=== PATIENT | male | born 1965 | race Caucasian/White ===

== ENCOUNTER 2016-04-09 18:44 | Inpatient (IN) | payer OTHER ==
[~2016-04-09] VITALS: Ht 182.9 cm; Wt 94.8 kg
[~2016-04-09 18:44] MED LIST: ATIVAN0.5 MG PO; COLCRYS0.6 MG PO; INDOMETHACIN25 MG PO; OXYCODONE-ACETAMINOP PO; PERCOCET 325 MG1 TAB PO
--- NOTE | 2016-04-09 18:52 | ED GENERAL ADULT ---
History of Present Illness General Chief Complaint: General Adult Stated Complaint: SOMETHING STUCK IN THROAT?, VOMITTING BLOOD Source: patient, old records Exam Limitations: no limitations Vital Signs & Intake/Output Vital Signs & Intake/Output Vital Signs Date Time Temp Pulse Resp B/P Pulse O2 O2 Flow FiO2 Ox Delivery Rate 04/10 0600 99.3 108 20 116/78 04/10 0400 126 32 119/67 04/10 0400 94 Nasal 4.0L Cannula 04/10 0314 100.4 04/10 0212 101.5 04/10 0200 128 24 90/55 04/10 0100 101.5 116 24 138/88 04/10 0000 130 20 147/83 04/09 2228 99.3 116 20 182/88 04/09 2228 100 Nasal 2.0L Cannula 04/09 2101 99.9 114 20 145/78 95 Nasal 2.0L Cannula 04/09 2005 110 15 120/80 100 Nasal 2.0L Cannula 04/09 195 Room Air Room Air 04/09 1934 94 15 142/78 04/09 1912 102 147/83 04/09 1906 92 149/81 04/09 1905 97.1 100 20 144/97 99 Room Air ED Intake and Output 04/10 0000 04/09 1200 Intake Total 1320 Output Total 150 Balance 1170 Intake, IV 1320 Intake, Oral 0 Output, 150 Emesis Patient 210 lb Weight Allergies Coded Allergies: No Known Allergies (10/28/15) Reconcile Medications Furosemide (Lasix) 40 MG TABLET 1 TAB PO BID LEG SWELLING (Reported) Ibuprofen 200 MG CAPSULE 4 CAP PO PRN PAIN (Reported) Oxycodone HCl 10 MG TABLET 1 TAB PO Q4H PRN CHRONIC PAIN (Reported) Potassium Chloride 10 MEQ TAB.ER.PRT 1 TAB PO DAILY SUPPLEMENT (Reported) Triage Nurses Notes Reviewed? yes HPI: Patient is a 51 year old male presents complaining of vomiting x 2-3 hours. Patient was eating a sandwich when he felt it get stuck. Vomiting water and saliva for 30 minutes -1 hour then for the past 1.5-2 hours vomiting blood. Still feels sensation of food bolus and feels anxious. Drinks alcohol daily, vodka and beer, at least 2 drinks today. Taking Ibuprofen daily for chronic pain. No history of seizures. Feels a knot in his throat and chest just prior to vomiting which improves after vomiting Denies abdominal pain, chest pain, lightheadedness, melena, hematochezia. (CARRIE SÁNCHEZ) Past History Travel History Traveled to [place] past 21 day No Medical History Any Pertinent Medical History? see below for history Neurological: NONE EENT: NONE Cardiovascular: NONE Respiratory: NONE Gastrointestinal: NONE Hepatic: NONE Renal: NONE Musculoskeletal: chronic back pain, R KNEE REPLACEMENT Psychiatric: substance abuse Endocrine: NONE Blood Disorders: NONE Cancer(s): NONE STERILE SUPERVISOR/Reproductive: NONE Other Medical Hx: CHRONIC PAIN Surgical History Surgical History: knee replacement Psychosocial History What is your primary language Honduran Family History Hx Contributory? No (CARRIE SÁNCHEZ) Review of Systems Review of Systems Constitutional: Denies: chills, fever, weakness. EENTM: Reports: throat pain. Respiratory: Denies: cough, short of breath. Cardiovascular: Denies: orthopena, palpitations, syncope. GI: Reports: see HPI. Denies: abdominal pain. Genitourinary: Reports: no symptoms. Musculoskeletal: Denies: back pain, neck pain. Skin: Reports: no symptoms. Neurological/Psychological: Denies: headache, numbness. Hematologic/Endocrine: Denies: bruising. Immunologic/Allergic: Denies: splenectomy. (CARRIE SÁNCHEZ) Physical Exam Physical Exam General Appearance: alert, awake, actively vomiting bright red blood Head: atraumatic, normal appearance Eyes: Bilateral: normal appearance, PERRL, EOMI. Ears, Nose, Throat: normal pharynx, normal ENT inspection Neck: normal inspection, supple, full range of motion Respiratory: normal breath sounds, chest non-tender, no respiratory distress, lungs clear Cardiovascular: regular rate/rhythm Peripheral Pulses: 2+ dorsalis pedis (R), 2+ dorsalis pedis (L) Gastrointestinal: normal bowel sounds, soft, non-tender Back: normal inspection, normal range of motion Extremities: normal inspection, normal capillary refill, normal range of motion, no edema Neurologic/Psych: no motor/sensory deficits, awake, alert, oriented x 3, mild anxious appearing. Skin: normal color, diaphoresis (mild) Lymphatic: no anterior cervical letitia Core Measures ACS in differential dx? No CVA/TIA Diagnosis: No Severe Sepsis Present: No Septic Shock Present: No (CARRIE SÁNCHEZ) Progress Differential Diagnoses I considered the following diagnoses in my evaluation of the patient: upper GI bleed(variceal bleed, PUD, Tsering-Garsia tear, esophageal rupture), aspiration pneumonia, food impaction, alcohol withdrawal Plan of Care: Orders Procedure Date/time Status Nothing by Mouth 04/10 B Active LEUKOCYTE POOR (PACKED CELLS) 04/10 0704 Active THYROID STIMULATING HORMONE 04/10 0500 Complete TROPONIN LEVEL 04/10 0500 Complete ICU LAB BUNDLE 04/10 0500 Complete HIV (Reflex to HIVCQ) 04/10 0500 Complete HEPATITIS PANEL 04/10 0500 Complete FREE T4 04/10 0500 Complete CBC WITHOUT DIFFERENTIAL 04/10 0500 Complete EKG 04/10 0500 Active LACTIC ACID 04/10 0440 Complete LACTIC ACID 04/10 0140 Complete CULTURE,URINE 04/10 0113 Active LOWER RESPIRATORY CULTURE 04/10 0113 Active BLOOD CULTURE 04/10 0113 Active TROPONIN LEVEL 04/10 0000 Complete ICU LAB BUNDLE 04/10 0000 Complete CBC WITHOUT DIFFERENTIAL 04/10 0000 Complete EKG 04/10 0000 Active US-LIMITED ABDOMEN 04/10 UNK Active ANTINUCLEAR ANTIBODY 04/10 UNK Active URINE DRUGS OF ABUSE 04/09 2326 Complete Pathway - chart 04/09 2152 Active House Staff 04/09 2152 Active Patient Data 04/09 2152 Active Code Status 04/09 2152 Active Weight 04/09 2124 Active VTE Mechanical Prophylaxis 04/09 2122 Active Vital Signs 04/09 2122 Active Turn and Reposition 04/09 2122 Active Teach/Educate 04/09 2122 Active Skin Integrity Protocol 04/09 2122 Active Skin/Pressure Ulcer Assess (Sk 04/09 2122 Active Precautions 04/09 2122 Active Pain Treatment and Response 04/09 2122 Active Nutritional Intake, Monitor 04/09 2122 Active Isolation 04/09 2122 Active Patient Care Conference 04/09 2122 Active Activity/Ambulation 04/09 2122 Active VRE ACTIVE SURVIELLANCE 04/09 2117 Active ACTIVE SURVEILLANCE NARES 04/09 2117 Active Add-on Test (ER Only) 04/09 2037 Active CIWA 04/09 2037 Active Patient Data 04/09 2033 Active Admit to inpatient 04/09 2021 Active CBC WITHOUT DIFFERENTIAL 04/09 2002 Complete Intake & Output 04/09 1904 Active TROPONIN LEVEL 04/09 1856 Complete MAGNESIUM 04/09 185 Complete LACTIC ACID 01/02 1856 Complete FOLIC ACID 04/09 1855 Complete VITAMIN B12 04/09 1855 Complete Add-on Test (ER Only) 04/09 1854 Active Telemetry/Assistant Manager Trainee 04/09 1849 Active PARTIAL THROMBOPLASTIN TIME 04/09 1849 Complete PROTHROMBIN TIME 04/09 1849 Complete ETHANOL 04/09 1849 Complete COMPREHENSIVE METABOLIC PANEL 04/09 1849 Complete CBC WITHOUT DIFFERENTIAL 04/09 1849 Complete EKG 04/09 1849 Active TYPE & SCREEN (NOT X-MATCH) 04/09 1849 Active Lab Add-on Test 04/09 UNK Active CIWA 04/09 UNK Complete Current Medications Sig/Liat Start time Last Medication Dose Stop Time Status Admin Oxycodone HCl 10 MG Q4 HRS NEEDED PRN 04/10 1000 CAN (Roxicodone) Hydromorphone HCl 0.6 MG Q4P PRN 04/10 0815 AC (Dilaudid) Potassium Chloride 10 MEQ ONCE ONE 04/10 0630 CAN 04/10 0700 Potassium Chloride 10 MEQ ONCE ONE 04/10 0630 CAN 04/10 0631 Potassium Chloride 10 MEQ ONCE ONE 04/10 0630 CAN 04/10 0631 Thiamine HCl 100 MG ONCE ONE 04/10 0130 CAN (Vitamin B-1) 04/10 0229 Sodium Chloride 100 ML (Normal Saline 0.9%) Laboratory Tests 04/10/16 0532: Lactic Acid 1.4 04/10/16 0532: TSH 0.406, Free T4 1.54 04/10/16 0532: Anion Gap 11, Estimated GFR > 60, Glucose 145 H, Calcium 7.9 L, Phosphorus 2.6 , Magnesium 1.6, Total Bilirubin 1.6 H, AST 104 H, ALT 54, Troponin I 0.01, Albumin 2.9 L, CBC w Diff MAN DIFF ORDERED, RBC 2.51 L, MCV 107.7 H, MCH 37.2 H, RDW 14.8 H, MPV 8.4, Gran % 85.3 H, Lymphocytes % 4.8 L, Monocytes % 9.9 H, Eosinophils % 0, Basophils % 0 L, Absolute Granulocytes 7.5 H, Segmented Neutrophils 78 H, Band Neutrophils 11 H, Absolute Lymphocytes 0.4 L, Lymphocytes 7 L, Monocytes 4, Absolute Monocytes 0.9 H, Absolute Eosinophils 0 , Absolute Basophils 0, Nucleated RBCs 1 H, Platelet Estimate DECREASED, Polychromasia 1+, Hypochromic-Microcytic 1+, PUBS MCHC 34.5, SHAE Titer Pending, Anti-Nuclear Antibody Pending, Hepatitis A IgM Ab NONREACTIVE, Hep Bs Antigen NONREACTIVE, Hep B Core IgM Ab Conf NONREACTIVE, Hepatitis C Antibody NONREACTIVE, HIV 1&2 Ab Western Blot NONREACTIVE 04/10/16 0140: Lactic Acid 2.2 H 04/10/16 0030: Anion Gap 14, Estimated GFR > 60, Glucose 143 H, Calcium 8.2 L, Phosphorus 2.5 , Magnesium 0.9 *L, Total Bilirubin 1.8 H, AST 132 H, ALT 65, Troponin I < 0.01, Albumin 3.4 L, CBC w Diff MAN DIFF ORDERED, RBC 2.88 L, MCV 107.1 H, MCH 37.1 H, RDW 14.6 H, MPV 8.9, Gran % 86.0 H, Lymphocytes % 3.6 L, Monocytes % 10.4 H, Eosinophils % 0, Basophils % 0 L, Absolute Granulocytes 7.2 H, Absolute Lymphocytes 0.3 L, Absolute Monocytes 0.9 H, Absolute Eosinophils 0, Absolute Basophils 0, Platelet Estimate ADEQUATE, Polychromasia 1 +, Hypochromic-Microcytic 1+, PUBS MCHC 34.6 04/09/16 2359: Urine Opiates Screen > 4000.00 H, Methadone Screen 44, Barbiturate Screen < 60, Ur Phencyclidine Scrn < 6.00, Amphetamines Screen < 100, U Benzodiazepines Scrn < 85, Urine Cocaine Screen < 50, Urine Cannabis Screen < 5.00 04/09/16 2014: CBC w Diff NO MAN DIFF REQ, RBC 2.95 L, MCV 108.5 H, MCH 37.3 H, RDW 15.0 H, MPV 8.3, Gran % 82.6 H, Lymphocytes % 7.4 L, Monocytes % 9.5 H, Eosinophils % 0.1, Basophils % 0.4, Absolute Granulocytes 4.7, Absolute Lymphocytes 0.4 L, Absolute Monocytes 0.5, Absolute Eosinophils 0, Absolute Basophils 0, PUBS MCHC 34.4 04/09/16 1856: Anion Gap 13, Estimated GFR > 60, BUN/Creatinine Ratio 12.9, Glucose 113 H, Lactic Acid 2.6 H, Calcium 8.9, Magnesium 1.1 L, Total Bilirubin 1.5 H, AST 163 H, ALT 66, Alkaline Phosphatase 143 H, Troponin I < 0.01, Total Protein 7.1, Albumin 3.7, Globulin 3.4, Albumin/Globulin Ratio 1.1, Vitamin B12 526, Folate 14.0, PT 13.3 H, INR 1.27 H, APTT 38 H, CBC w Diff NO MAN DIFF REQ, RBC 3.06 L, MCV 107.9 H, MCH 37.3 H, RDW 14.6 H, MPV 8.4, Gran % 74.2, Lymphocytes % 15.0 L, Monocytes % 10.4 H, Eosinophils % 0.1, Basophils % 0.3, Absolute Granulocytes 4.1, Absolute Lymphocytes 0.8 L, Absolute Monocytes 0.6, Absolute Eosinophils 0, Absolute Basophils 0, PUBS MCHC 34.5, Serum Alcohol 65.0 Microbiology 04/10 0400 GI: Surveillance Culture - RECD 04/10 0230 URINE ROUT: Urine Culture - RECD 04/10 134 BLOOD: Blood Culture - RECD 04/10 0130 BLOOD: Blood Culture - RECD 04/10 0113 LOWER RESP: Respiratory Culture - COLB 04/10 011 LOWER RESP: Gram Stain - COLB 04/09 2144 UPPER RESP: Surveillance Culture - RECD 0: 2 peripheral IV's established. Protonix ordered. GI paged. Discussed with and seen by Dr. Torres. 1909: Discussed with Dr. Smith: will come in to see patient. 1914: Discussed with Dr. Smith: give IV glucagon, recommends giving nitro if blood pressure remains stable. 1929: Patient continues to vomiting bright red blood. Remains normotensive with pulse 90's-100. Will hold nitro to see if blood pressure remains stable. 1939: Blood pressure remaining stable. SL nitroglycerin ordered. 2019: Patient's oxygen saturation dropping to high 80's low 90's. Discussed with Dr. Smith: is in hospital will be down to see patient shortly. 2029: Dr. Torres discussed case with Dr. Avendaño for admission to ICU. Dr. Smith at bedside to evaluate patient. 2049: Evaluated by Dr. Smith: give antibiotics for possible aspiration pneumonia and Ceftriaxone in case patient requires any banding procedures. Antibiotics ordered by Dr. Torres. (CARRIE SÁNCHEZ) Diagnostic Imaging: Viewed by Me: Radiology Read. Discussed w/RAD: Radiology Read. CXR Impression: PATIENT: JENNI MALAGON JR PRESENT AGE : 51 PATIENT ACCOUNT NO: [id number] : 63 LOCATION: [facility] ORDERING PHYSICIAN: CARRIE ROSE SERVICE DATE: 04/09/16 EXAM TYPE: RAD - XRY-PORTABLE CHEST XRAY EXAMINATION: XR PORTABLE CHEST CLINICAL INFORMATION: 51- year-old male patient vomiting and has decreasing oxygen saturations. COMPARISON : Chest x-ray done 10/28/2015. TECHNIQUE: AP portable semierect view of the chest was obtained. FINDINGS: The heart is normal in size and the thoracic aorta uncoiled. Lungs are clear. There is no evidence of aspiration pneumonia. The central pulmonary vasculature is engorged. There is no evidence of pulmonary edema. IMPRESSION: No evidence of aspiration pneumonia. DICTATED BY: EZIO MORALEZ MD DATE/TIME DICTATED:04/09/162014 COAL YARD SUPERVISOR:CHARLES DATE/ TIME TRANSCRIBED:04/09/162014 CONFIDENTIAL, DO NOT COPY WITHOUT APPROPRIATE AUTHORIZATION. <Electronically signed in Other Vendor System> SIGNED BY: EZIO MORALEZ MD 04/09/162019 Initial ED EKG: sinus rhythm 100 bpm left axis deviation, nonspecific ST/T-wave abnormalities Prior EKG: changed (nonspecific t wave changes) Rhythm Strip: normal sinus rhythm (CARRIE SÁNCHEZ) Differential Diagnoses I considered the following diagnoses in my evaluation of the patient: (JEN TORRES DO) Departure Departure Time of Disposition: 2032 Disposition: STILL A PATIENT Condition: Guarded Clinical Impression Primary Impression: Upper GI bleed Secondary Impressions: Alcohol withdrawal Qualifiers: Complication of substance-induced condition: with unspecified complication Qualified Code: F10.239 - Alcohol dependence with withdrawal, unspecified Referrals: PATIENT HAS NO PRIMARY CARE DR Referred to [facility] as new patient No Departure Forms: Customer Survey General Discharge Information (CARRIE SÁNCHEZ) Admission Note Spoke With: TESSIE AVENDAÑO MD Documentation of Exam: Documentation of any treatments & extenuating circumstances including Concerns Regarding Discharge (functional status, medication knowledge or non-compliance, living conditions, etc.) that warrant an admission rather than observation: [The patient needs admission to the ICU for IV fluids IV proton pump inhibitor therapy, serial hemoglobin and hematocrit, GI consultation] PA/SUPERVISOR PAINTING Co-Sign Statement Statement: ED Attending supervision documentation- [X] I saw and evaluated the patient. I have also reviewed all the pertinent lab results and diagnostic results. I agree with the findings and the plan of care as documented in the PA's/SUPERVISOR PAINTING's documentation. [] I have reviewed the ED Record and agree with the PA's/SUPERVISOR PAINTING's documentation. [] Additions or exceptions (if any) to the PAs/SUPERVISOR PAINTING's note and plan are summarized below: [] 04/09/16 7:26 PM I've seen and personally examined the patient and I agree with the PAs evaluation. He is a 51-year-old man who has history of prior food impaction and now presents with upper GI bleeding. He has been taking ibuprofen. He is hemodynamically stable. His EKG shows sinus tachycardia. Labs have been sent. IV fluids were given. GI has been contacted they are coming in to see the patient. He will be admitted to the intensive care, he is pending lab results. (BRIAN WISE,JEN Call) Critical Care Note Critical Care Note Critical Care Time: 30-74 min (CARRIE SÁNCHEZ)
[2016-04-09 19:07] LABS: ABSOLUTE BASOPHIL COUNT 0 /CUMM (0.0-0.2); ABSOLUTE EOSINOPHIL COUNT 0 /CUMM (0.0-0.7); ABSOLUTE GRANULOCYTE CT 4.1 /CUMM (1.4-6.5); ABSOLUTE LYMPH COUNT 0.8 /CUMM (1.2-3.4); ABSOLUTE MONOCYTE COUNT 0.6 /CUMM (0.10-0.60); BASOPHIL % 0.3 % (0.0-2.0); EOSINOPHIL % 0.1 % (0-5); GRANULOCYTE % 74.2 % (42.2-75.2); MEAN CORPUSCULAR HGB 37.3 PG (27.0-31.0); MEAN CORPUSCULAR HGB CONC 34.5 G/DL (33.0-37.0); MEAN CORPUSCULAR VOLUME 107.9 FL (80.0-94.0); MEAN PLATELET VOLUME 8.4 FL (7.4-10.4); PLATELET COUNT 152 /CUMM (130-400); RBC DISTRIBUTION WIDTH 14.6 % (11.5-14.5); RED BLOOD CELL CT 3.06 /CUMM (4.70-6.10); WHITE BLOOD CELL COUNT 5.6 /CUMM (4.8-10.8)
--- NOTE | 2016-04-09 19:16 | NUR ---
51 YEAR OLD MALE TO TRIAGE, PT NOTED WITH GARBAGE BAG FULL OF RAGS WITH BRIGHT RED BLOOD ON THEM, PT DIRECTLY TO ROOM, STATES THAT HE DRINKS EVERYDAY AND THAT AROUND 1600 HE WAS EATING A SANDWICH AND IT BECAME LODGED IN HIS THROAT AND BEGAN VOMITTING CLEAR FLUIDS THAT QUICKLY TURNED INTO BRIGHT RED BLOOD, PT STATES THAT HE HAS BEEN VOMITTING BLOOD SINCE, PT PROVIDED WITH BASIN AND NOTED TO BE ACTIVELY VOMITTING BRIGHT RED BLOOD , PA AT BEDSIDE, 18 GAUGE PLACED RAC AND 1L LNS BOLUS INFUSING, # 20 PLACED IN L HAND AND PT MEDICATED WITH 80 MG IV PROTONIX PER ORDER AND 4MG ZOFRAN FOR THE NAUSEA. PT CONTINUED TO VOMIT BRIGHT RED BLOOD. BP 147/83 AND HR 104
--- NOTE | 2016-04-09 19:16 | NUR ---
PT MEDICATED WITH ATIVAN 1 MG IV PER ORDER FOR ANXIETY. PROTONIX DRIP BEING STARTED AT THIS TIME.NSR ON MONITOR WITH HR 86
[2016-04-09 19:21] LABS: PT 13.3 SEC (9.4-12.5); PTT 38 SEC (25-37)
--- NOTE | 2016-04-09 19:35 | NUR ---
PT MEDCIATED WITH GLUCAGON PER EMAR. PT CONTINUES TO VOMIT BRIGHT RED BLOOD. PASSING SOME LARGE CLOTS.
--- NOTE | 2016-04-09 19:49 | NUR ---
PT STATES HE HAS A FEELING OF LABORED BREATHING, RR 20 AND REGULAR, MILTON JOHN NOTIFIED
--- NOTE | 2016-04-09 19:50 | NUR ---
PT MEDICATED WITH NITRO PER EMAR. BP STABLE PRIOR TO ADMINISTRATION: 156/86 PT ALSO REPORTS "LABORED BREATHING." O2 SAT WNL.
--- NOTE | 2016-04-09 19:56 | NUR ---
PT PLACED ON 2L NC OXYGEN FOR O2 SAT 89% ON RA WITHSTEADY WAVEFORM.
--- NOTE | 2016-04-09 20:08 | Cons- Gastroenterology ---
See Addendum General Information and HPI Consulting Request Date of Consult: 04/09/16 Requested By: CARRIE SÁNCHEZ Reason for Consult: Called 1 hour ago by MILTON Choi, pn behalf of Dr. Herring, to assess upper GI bleeding in the setting of a food impaction, in a patient with a history of alcohol abuse. Source of Information: patient, old records Exam Limitations: patient anxious, agitated & was upset at answering questions. 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 Lee, with history of multiple falls (right TKR, post 4 previous right knee surgeries, multiple bilateral collarbone fractures, chronic back pain, DJD, herniated disc, shoulder pain), followed by Dr. Herring for primary care, claiming to average "8 drinks of EtOH weekly," with remote history of lower esophageal ring and food impaction. This required 12/14/2002: EGD x 2 same day (Dr. Shaq Umana/Dr. Shameka Gillette)- food impaction removed, lower esophageal ring, hiatal hernia. No varices or portal gastropathy noted at that time. The patient was put on a short course of Carafate and Nexium then. He was not compliant with suggested follow-up for semi-elective barium swallow & esophageal dilatation. He has not seen a blow off worker since. He has had rare intermittent dysphagia to solids since, which passed spontaneously. He normally has no difficulty swallowing liquids or pills. He has not had a baseline colonoscopy. There is no family history of GI disease, GI malignancy, or inherited liver disease. He denies any history of viral hepatitis, tattoos, or known history of HIV. He denies using any street drugs or IVDA, aside from the prescribed Oxycodone. He denies cigarette use. The patient was eating a ham and cheese sandwich at 4 PM 04/09/2016, followed by dysphagia, with a feeling of impaction in the mid chest. This was followed by mild odynophagia, and questionable mid-pleuritic chest pain, without any hemoptysis. The patient had clear vomiting, without bile, followed by retching, followed by vomiting bright red blood. He had a brown bowel movement earlier today. There is no history of rectal bleeding or melena. He drove himself to the [facility] 04/09/2016, arriving at 6:44 PM. He had some rags that were covered with blood. Upon presentation, BP 144/97, P- 112, R- 20, T- 97.1, O2 sat RA 99%. He continued to have a sensation of food stuck, with vomiting of blood. He denies any history of peptic ulcer disease. He denies any aspirin use, but takes Ibuprofen 4 tabs daily for years, for his chronic aches and pains. He claims he was transfused at [facility] in 10/2015, where he went for a fractured left clavicle, but did not have surgery for this. The patient received Zofran, Protonix 80 mg IV bolus followed by Protonix drip, IV saline, Ativan, 1 amp of glucagon and SL NTG x 1, as his BP was stable, in order to try to get the food bolus to move. He did not get relief from this. The patient had low normal platelets, a borderline INR, and LFTs suggestive of alcoholic hepatitis, with [EtOH] 65, upon presentation (*see labs). Previous imaging studies did not show a cirrhotic liver. The patient desaturated slightly 04/09/2016 at 7:56 PM (O2 sat RA 89%), was put on O2 2L nc. *Admission chest x-ray did not show any evidence of aspiration, but it might be too soon to tell. *I advised the ER to give the patient IV Unasyn 3g (to cover his lungs) and 1 dose of empiric IV Ceftriaxone 1g (in case esophageal banding is needed). The patient denies any jaundice, dark urine, light stool, pruritus, or confusion. He admits to rare symptoms of GERD. He denies any fevers, chills, shortness of breath, early satiety, abdominal pain, diarrhea, constipation, obstipation, or tenesmus. He denies any symptoms of UTI or URI. He denies any significant weight loss or change in appetite. He is on a water pill and potassium for periodic lower extremity edema. He denies any increased abdominal girth. He denies any known history of cirrhosis. 10/28/2015: *Previous ER labs- WBC 8.4, H/H 8.6/24.9, elevated MCV 109.4, elevated RDW 16.7, PLT 121, PT 15.9, INR 1.51, PTT 37, glucose 138, BUN/Cr 3/0.5 , sodium 134, potassium 4.3, bicarbonate 22, AG 16, albumin 2.9, globulin 3.3, TBil 6.4, DBil 4.5, alkaline phosphatase 244, AST 309, ALT 69, A/L 115/315, troponin < 0.01. 04/09/2016: *Admission labs 6:56 p.m.- CBC 5.6, H/H 11.4/33, MCV 107.9, RDW 14.6 , PLT 152, PT 13.3, INR 1.27, PTT 38, glucose 113, BUN/Cr 9/0.7, GFR > 60, sodium 134, potassium 3.3, bicarbonate 29, AG 13, magnesium 1.1, calcium 8.9, albumin 3.7, globulin 3.4, TBil 1.5 (without fracs), alk phos 143, AST 163, ALT 66, [EtOH] 65, elevated lactate 2.6. 04/09/2016: *Discriminant function by Maddrey formula- 7.48. 04/09/2016: *Repeat CBC 8:14 p.m.- WBC 5.7, H/H 11.0/32.0, MCV 108.5, RDW 15, PLT 136 10/28/2015: CT ABDOMEN AND PELVIS WITH IV CONTRAST (per ER)- 1. Edema around contracted gallbladder suggesting acute cholecystitis. No bile duct dilatation. CBD 3 mm. Normal pancreas. Normal spleen. 2. Hepatomegaly with diffuse fatty infiltration of liver. No focal liver lesion. No mention of ascites. 3. DJD. 04/09/2016: EKG- ST @ 100, LAE, LAD, without acute ischemic changes. 04/09/2016: XR PORTABLE CHEST- No evidence of aspiration pneumonia. No effusion or CHF. Lungs clear. Allergies/Medications Allergies: Coded Allergies: No Known Allergies (10/28/15) Home Med List: Furosemide (Lasix) 40 MG TABLET 1 TAB PO BID LEG SWELLING (Reported) Ibuprofen 200 MG CAPSULE 4 CAP PO PRN PAIN (Reported) Oxycodone HCl 10 MG TABLET 1 TAB PO Q4H PRN CHRONIC PAIN (Reported) Potassium Chloride 10 MEQ TAB.ER.PRT 1 TAB PO DAILY SUPPLEMENT (Reported) Past History Travel History Traveled to [place] past 21 day No Medical History Blood Transfusion Hx: Yes ([facility] 10/2015) Neurological: Hx DTs EENT: NONE Cardiovascular: hypertension (borderline) Respiratory: NONE Gastrointestinal: 12/14/2002: Hx remote lower esophageal ring, HH & food impaction Hepatic: fatty liver/EtOH hepatitis Renal: NONE Musculoskeletal: chronic back pain, disk herniation, degen joint disease, falls, fracture (clavicles B/L), R KNEE REPLACEMENT Psychiatric: alcohol dependence, anxiety, opioid dependence, substance abuse ( Oxycodone) Endocrine: osteopenia on prior Xrays Blood Disorders: anemia (macrocytic) Cancer(s): NONE 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 , Age 84; Cause: Lung cancer. FATHER ([employer]). Age 89. Psychosocial History Where Do You Live? Home Who Do You Live With? parent (father) Services at Home: None Primary Language: Paraguayan Smoking Status: Never Smoked ETOH Use: alcoholic Illicit Drug Use: denies illicit drug use (on rx Oxycodone) Living Will? no Power of Metal Smelter/HCP? no Other Social History: Single. Lives with elderly father. No children. No cigarettes. No street drugs. On prescription Oxycodone. Alcoholic for years, drinking up until admission. Hx DTs. "8 drinks a week". 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 Chronic pain syndrome. Functional Ability ADLs Independent: dressing, eating, toileting, bathing. Ambulation: independent IADLs Independent: shopping, housework, finances, food prep, telephone, transportation , medication admin. Employment History Employment: Unemployed Review of Systems Review of Systems: Full 14 point review of systems otherwise noncontributory, and as above. Review of Systems Constitutional: Denies: chills, diaphoresis, fever, malaise, weakness, unexplained weight loss. EENTM: Denies: blurred vision, double vision, visual changes, eye pain, eye drainage, eye tearing, icterus, ear discharge, ear pain, ear redness, hearing changes, nasal congestion, epistaxis, nasal pain, throat pain, throat swelling, mouth pain, tooth pain. Cardiovascular: Reports: chest pain (mild mid-pleuritic post FB). Denies: edema, orthopena, palpitations, peripheral edema, syncope. Respiratory: Denies: cough, hemoptysis, orthopnea, short of breath, sputum production, stridor, wheezing. GI: Reports: vomiting (hematemesis post FB; dysphagia). Denies: abdominal pain, bloating, constipation, diarrhea, distention, bowel incontinence, melena, nausea , bloody stool, changes in stool, steatorrhea. Genitourinary: Denies: discharge, dysuria, frequency, hematuria, hesitation, nocturia, pain, urgency. Musculoskeletal: Reports: back pain, joint pain (chronic pain; fxd clavicle). Denies: gout, joint swelling, muscle pain, muscle stiffness, neck pain. Skin: Denies: cysts, change in skin color, change in hair/nails, dryness, erythema, jaundice, lesions, lymphangitis, lumps, moles, rash. Neurological/Psychological: Reports: anxiety, tremors. Denies: ataxia, cognitive dysfunction, confusion, depressed, dementia, emotional problems, headache, numbness, paresthesia, pre- existing deficit, petit mal seizures, tingling, tonic-clonic seizures, unable to move lower ext, unable to move upper ext, weakness. Hematologic/Endocrine: Denies: bruising, bleeding, polyuria, polydipsia. Immunologic/Allergic: Denies: splenectomy, HIV/AIDS, lymphadenopathy. All Other Systems: Reviewed and Negative Exam & Diagnostic Data Vital Signs and I&O Vital Signs Date Time Temp Pulse Resp B/P Pulse O2 O2 Flow FiO2 Ox Delivery Rate 04/09 2101 99.9 114 20 145/78 95 Nasal 2.0L Cannula 04/09 2005 110 15 120/80 100 Nasal 2.0L Cannula 04/09 1950 Room Air Room Air 04/09 1934 94 15 142/78 04/09 1911 102 147/83 04/09 190 92 149/81 04/09 1904 97.1 100 20 144/97 99 Room Air Physical Exam: Chronically ill-appearing, well-nourished male, anxious, vomiting blood with sensation of foreign body in the mid-chest, in moderate distress. Sclera anicteric. Conjunctiva pink. Oropharynx clear. No oral thrush. No aphthous ulcers. No stridor. No head and neck or chest wall crepitus. There is no adenopathy, thyromegaly, or JVD. Slightly deformed left clavicle. No peripheral stigmata of inflammatory bowel disease or chronic liver disease on exam, aside from mild gynecomastia B/L, without masses or discharge. There are no spiders on the anterior chest wall. No CVA tenderness. Lungs: clear to A&P, with slight decreased breath sounds at the bases B/L. No wheezing, rales, rhonchi, or rub. Heart exam: regular rate rhythm, S1 and S2, without any murmur. Abdominal exam: normal bowel sounds, soft belly, nontender, without guarding or rebound. No mass. Enlarged liver, approximately 20 cm by percussion. Negative Garcia sign. No splenomegaly. No fluid shift. No pulsatile mass. Digital rectal exam: refused by patient. Extremities: without C, C, or E. No palpable cords. No Dupuytren's contractures. No palmar erythema. Distal pulses 2+ bilaterally. DTRs 2+ bilaterally. Left handed. CN II-XII intact. Alert and oriented x 3. Agitated. Mild tremor. No asterixis. Results Pertinent Lab Results: Laboratory Tests 04/09 1856 Chemistry Sodium (137 - 145 mmol/L) 134 L Potassium (3.5 - 5.1 mmol/L) 3.3 L Chloride (98 - 107 mmol/L) 93 L Carbon Dioxide (22 - 30 mmol/L) 29 Anion Gap (5 - 16) 13 BUN (9 - 20 mg/dL) 9 Creatinine (0.7 - 1.2 mg/dL) 0.7 Estimated GFR (>60 ml/min) > 60 BUN/Creatinine Ratio (7 - 25 %) 12.9 Glucose (65 - 99 mg/dL) 113 H Lactic Acid (0.7 - 2.1 mmol/L) 2.6 H Calcium (8.4 - 10.2 mg/dL) 8.9 Magnesium (1.6 - 2.3 mg/dL) 1.1 L Total Bilirubin (0.2 - 1.3 mg/dL) 1.5 H AST (17 - 59 U/L) 163 H ALT (21 - 72 U/L) 66 Alkaline Phosphatase (< 127 U/L) 143 H Troponin I (<0.11 ng/ml) Pending Total Protein (6.3 - 8.2 g/dL) 7.1 Albumin (3.5 - 5.0 g/dL) 3.7 Globulin (1.9 - 4.2 gm/dL) 3.4 Albumin/Globulin Ratio (1.1 - 2.2 %) 1.1 Coagulation PT (9.4 - 12.5 SEC) 13.3 H INR (0.90 - 1.17) 1.27 H APTT (25 - 37 SEC) 38 H Hematology CBC w Diff NO MAN DIFF REQ NO MAN DIFF REQ WBC (4.8 - 10.8 /CUMM) 5.7 5.6 RBC (4.70 - 6.10 /CUMM) 2.95 L 3.06 L Hgb (14.0 - 18.0 G/DL) 11.0 L 11.4 L Hct (42 - 52 %) 32.0 L 33.0 L MCV (80.0 - 94.0 FL) 108.5 H 107.9 H MCH (27.0 - 31.0 PG) 37.3 H 37.3 H RDW (11.5 - 14.5 %) 15.0 H 14.6 H Plt Count (130 - 400 /CUMM) 136 152 MPV (7.4 - 10.4 FL) 8.3 8.4 Gran % (42.2 - 75.2 %) 82.6 H 74.2 Lymphocytes % (20.5 - 51.1 %) 7.4 L 15.0 L Monocytes % (1.7 - 9.3 %) 9.5 H 10.4 H Eosinophils % (0 - 5 %) 0.1 0.1 Basophils % (0.0 - 2.0 %) 0.4 0.3 Absolute Granulocytes (1.4 - 6.5 /CUMM) 4.7 4.1 Absolute Lymphocytes (1.2 - 3.4 /CUMM) 0.4 L 0.8 L Absolute Monocytes (0.10 - 0.60 /CUMM) 0.5 0.6 Absolute Eosinophils (0.0 - 0.7 /CUMM) 0 0 Absolute Basophils (0.0 - 0.2 /CUMM) 0 0 PUBS MCHC (33.0 - 37.0 G/DL) 34.4 34.5 Toxicology Serum Alcohol (<10 MG/DL) 65.0 Imaging/Other Studies: 10/28/2015: CT ABDOMEN AND PELVIS WITH IV CONTRAST (per ER)- 1. Edema around contracted gallbladder suggesting acute cholecystitis. No bile duct dilatation. CBD 3 mm. Normal pancreas. Normal spleen. 2. Hepatomegaly with diffuse fatty infiltration of liver. No focal liver lesion. No mention of ascites. 3. DJD. 04/09/2016: EKG- ST @ 100, LAE, LAD, without acute ischemic changes. 04/09/2016: XR PORTABLE CHEST- No evidence of aspiration pneumonia. No effusion or CHF. Lungs clear. 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 Lee, with history of multiple falls (right TKR, post 4 previous right knee surgeries, multiple bilateral collarbone fractures, chronic back pain, DJD, herniated disc, shoulder pain), followed by Dr. Herring for primary care, claiming to average "8 drinks of EtOH weekly," with remote history of lower esophageal ring and food impaction. This required 12/14/2002: EGD x 2 same day (Dr. Shaq Umana/Dr. Shameka Gillette)- food impaction removed, lower esophageal ring, hiatal hernia. No varices or portal gastropathy noted at that time. The patient was put on a short course of Carafate and Nexium then. He was not compliant with suggested follow-up for semi-elective barium swallow & esophageal dilatation. He has not seen a blow off worker since. He has had rare intermittent dysphagia to solids since, which passed spontaneously. He normally has no difficulty swallowing liquids or pills. He has not had a baseline colonoscopy. There is no family history of GI disease, GI malignancy, or inherited liver disease. He denies any history of viral hepatitis, tattoos, or known history of HIV. He denies using any street drugs or IVDA, aside from the prescribed Oxycodone. He denies cigarette use. The patient was eating a ham and cheese sandwich at 4 PM 04/09/2016, followed by dysphagia, with a feeling of impaction in the mid chest. This was followed by mild odynophagia, and questionable mid-pleuritic chest pain, without any hemoptysis. The patient had clear vomiting, without bile, followed by retching, followed by vomiting bright red blood. He had a brown bowel movement earlier today. There is no history of rectal bleeding or melena. He drove himself to the [facility] 04/09/2016, arriving at 6:44 PM. He had some rags that were covered with blood. Upon presentation, BP 144/97, P- 112, R- 20, T- 97.1, O2 sat RA 99%. He continued to have a sensation of food stuck, with vomiting of blood. He denies any history of peptic ulcer disease. He denies any aspirin use, but takes Ibuprofen 4 tabs daily for years, for his chronic aches and pains. He claims he was transfused at [facility] in 10/2015, where he went for a fractured left clavicle, but did not have surgery for this. The patient received Zofran, Protonix 80 mg IV bolus followed by Protonix drip, IV saline, Ativan, 1 amp of glucagon and SL NTG x 1, as his BP was stable, in order to try to get the food bolus to move. He did not get relief from this. The patient had low normal platelets, a borderline INR, and LFTs suggestive of alcoholic hepatitis, with [EtOH] 65, upon presentation (*see labs). Previous imaging studies did not show a cirrhotic liver. The patient desaturated slightly 04/09/2016 at 7:56 PM (O2 sat RA 89%), was put on O2 2L nc. *Admission chest x-ray did not show any evidence of aspiration, but it might be too soon to tell. *I advised the ER to give the patient IV Unasyn 3g (to cover his lungs) and 1 dose of empiric IV Ceftriaxone 1g (in case esophageal banding is needed). The patient denies any jaundice, dark urine, light stool, pruritus, or confusion. He admits to rare symptoms of GERD. He denies any fevers, chills, shortness of breath, early satiety, abdominal pain, diarrhea, constipation, obstipation, or tenesmus. He denies any symptoms of UTI or URI. He denies any significant weight loss or change in appetite. He is on a water pill and potassium for periodic lower extremity edema. He denies any increased abdominal girth. He denies any known history of cirrhosis. 10/28/2015: *Previous ER labs- WBC 8.4, H/H 8.6/24.9, elevated MCV 109.4, elevated RDW 16.7, PLT 121, PT 15.9, INR 1.51, PTT 37, glucose 138, BUN/Cr 3/0.5 , sodium 134, potassium 4.3, bicarbonate 22, AG 16, albumin 2.9, globulin 3.3, TBil 6.4, DBil 4.5, alkaline phosphatase 244, AST 309, ALT 69, A/L 115/315, troponin < 0.01. 04/09/2016: *Admission labs 6:56 p.m.- CBC 5.6, H/H 11.4/33, MCV 107.9, RDW 14.6 , PLT 152, PT 13.3, INR 1.27, PTT 38, glucose 113, BUN/Cr 9/0.7, GFR > 60, sodium 134, potassium 3.3, bicarbonate 29, AG 13, magnesium 1.1, calcium 8.9, albumin 3.7, globulin 3.4, TBil 1.5 (without fracs), alk phos 143, AST 163, ALT 66, [EtOH] 65, elevated lactate 2.6. 04/09/2016: *Discriminant function by Maddrey formula- 7.48. 04/09/2016: *Repeat CBC 8:14 p.m.- WBC 5.7, H/H 11.0/32.0, MCV 108.5, RDW 15, PLT 136 10/28/2015: CT ABDOMEN AND PELVIS WITH IV CONTRAST (per ER)- 1. Edema around contracted gallbladder suggesting acute cholecystitis. No bile duct dilatation. CBD 3 mm. Normal pancreas. Normal spleen. 2. Hepatomegaly with diffuse fatty infiltration of liver. No focal liver lesion. No mention of ascites. 3. DJD. 04/09/2016: EKG- ST @ 100, LAE, LAD, without acute ischemic changes. 04/09/2016: XR PORTABLE CHEST- No evidence of aspiration pneumonia. No effusion or CHF. Lungs clear. *The patient is having an upper GI bleed that started in the setting of a food impaction. He has a remote history of a lower esophageal ring in 12/2002, for which he was not compliant with suggested semi-elective esophageal dilatation. There is a substantial history of alcohol abuse. Recent 10/28/2015: CT AP with contrast showed an enlarged fatty liver without evidence of cirrhosis or portal collaterals. He has a significant history of Ibuprofen use. He has low normal platelets with a borderline INR. His albumin:globulin ratio is normal. He has a negative discriminant function (7.48) by the Maddrey formula regarding his EtOH hepatitis, but he would not be a candidate for Prednisolone or Trental anyway, in view of his active upper GI bleeding. *Vast differential diagnosis for the above includes esophageal ulceration in the setting of food impaction, Tsering-Garsia tear post retching, peptic ulcer disease and/or NSAID gastropathy, etc., with a less likely possibility of variceal bleeding. Doubt neoplasm. Again, there has been no documented cirrhosis in the past, and the bleeding occurred after the food impaction. The oxygen desaturation is noted despite the clear chest x-ray, and it is possible the patient could have aspirated. SUGGEST: ICU admit to hospitalist service. NPO. Gentle IVF with NS. Replete electrolyte (i.e.- K+/Mg2+). IV Protonix bolus 80 mg given, followed by IV Protonix drip at 8 mg/hour. *Watch magnesium levels on PPI. T&C 4u PRBC. Serial CBC Q6h for now. Strict I's and O' s. Follow-up INR, lytes & LFTs. Supplemental oxygen. Panculture. IV Unasyn & 1 dose of Ceftriaxone given, as above. Serial chest x-ray, watch for impending aspiration PNA. DT precautions. Serial CIWA. Thiamine, folate, multivitamin via banana bag. No NSAIDs. *Check full Hepatitis A, B, & C serologies, & HIV. Consider checking SHAE. Check TFTs with TSH, B12, RBC folate. DVT prophylaxis with mechanical ALPS. Urgent EGD to follow with attempt at foreign body removal in the ICU. The nursing supervisor sunglasses was contacted to correlate the above with anesthesia. The patient was made aware that he will need prophylactic intubation into the food impaction and active bleeding. *He was also told that I would have a low threshold to transfer him to [facility], depending on the EGD results, as it certainly could be problematic removing an esophageal foreign body if there are underlying varices. He may have to at an institution where there potentially are TIPS available, and placement of a potential Bryanna tube would not be possible if the foreign body cannot be removed. Patient was made aware of the critical nature of his illness. Further recommendations will follow, depending on clinical course. 90 minutes of ICU care was spent on the patient. Problem List: 1. Dysphagia 2. Food impaction of esophagus 3. Upper GI bleed 4. Lower esophageal ring 5. Hiatal hernia 6. Alcohol abuse 7. Alcohol withdrawal syndrome 8. Alcoholic hepatitis 9. Fatty liver 10. Macrocytic anemia 11. Chronic pain syndrome Copies To: OSCAR EDWARD,TESSIE; CARRIE SÁNCHEZ; LIVIA EDWARD,LORENZO N.; DC EDWARD, JOSE LEE MD,CYRIL Aguilar. Consult Acknowledgment - Thank you for your consult request.
--- NOTE | 2016-04-09 20:20 | RADIOLOGY REPORT ---
EXAMINATION: XR PORTABLE CHEST CLINICAL INFORMATION: 51-year-old male patient vomiting and has decreasing oxygen saturations. COMPARISON: Chest x-ray done 10/28/2015. TECHNIQUE: AP portable semierect view of the chest was obtained. FINDINGS: The heart is normal in size and the thoracic aorta uncoiled. Lungs are clear. There is no evidence of aspiration pneumonia. The central pulmonary vasculature is engorged. There is no evidence of pulmonary edema. IMPRESSION: No evidence of aspiration pneumonia.
[2016-04-09 20:22] LABS: ABSOLUTE BASOPHIL COUNT 0 /CUMM (0.0-0.2); ABSOLUTE EOSINOPHIL COUNT 0 /CUMM (0.0-0.7); ABSOLUTE GRANULOCYTE CT 4.7 /CUMM (1.4-6.5); ABSOLUTE LYMPH COUNT 0.4 /CUMM (1.2-3.4); ABSOLUTE MONOCYTE COUNT 0.5 /CUMM (0.10-0.60); BASOPHIL % 0.4 % (0.0-2.0); EOSINOPHIL % 0.1 % (0-5); GRANULOCYTE % 82.6 % (42.2-75.2); MEAN CORPUSCULAR HGB 37.3 PG (27.0-31.0); MEAN CORPUSCULAR HGB CONC 34.4 G/DL (33.0-37.0); MEAN CORPUSCULAR VOLUME 108.5 FL (80.0-94.0); MEAN PLATELET VOLUME 8.3 FL (7.4-10.4); PLATELET COUNT 136 /CUMM (130-400); RED BLOOD CELL CT 2.95 /CUMM (4.70-6.10); WHITE BLOOD CELL COUNT 5.7 /CUMM (4.8-10.8)
[2016-04-09] MEDS ORDERED: OXYCODONE HCL10 M2 PO (20:53)
[2016-04-09] MEDS ORDERED: FUROSEMIDE20 M1 PO (20:54)
[2016-04-09] MEDS ORDERED: POTASSIUM CHLO10 ME5 PO (20:54)
[2016-04-09] MEDS ORDERED: IBUPROFEN200 M3 PO (20:54)
--- NOTE | 2016-04-09 21:00 | NUR ---
HOSPITALIST AT BEDSIDE.
--- NOTE | 2016-04-09 21:02 | NUR ---
PT'S ASSIGNMENT 108
--- NOTE | 2016-04-09 21:14 | NUR ---
REPORT GIVEN TO DALE MACKENZIE.
--- NOTE | 2016-04-09 22:00 | NUR ---
PT UP FROM ER VIA STRETCHER, TRANSFERED SELF TO BED. PT PALE AND TIRED. ON 2L NC LUNGS CLEAR. PT PLACED ON HEART MONITOR, ST 110-120S. BP 182/88 MANUALLY. PT VOMITING BRIGHT RED BLOODY EMESIS. ANESTHESIA AND GI TEAM AT BEDSIDE TO SCOPE PT. PT SKIN GROSSLY INTACT. PT C/O SEVERE PAIN MORPHINE GIVEN ORDERED. PT RECIEVING PREPROCEDURE ABX.
[2016-04-09] MEDS ORDERED: LASIX40 M1 PO (22:03)
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
[2016-04-09 22:28] VITALS: BP 182/88
--- NOTE | 2016-04-09 23:56 | Proc Note Endoscopy ---
See Addendum Endoscopy Procedure Medical History: unchanged Mental Status: alert/oriented Heart/Lung Eval Prior to Sedation: within normal limits Candidate for Sedation? Yes Procedure Date: 04/09/16 Procedure Type: EGD with foreign body removal [employer] Tech: ARETHA SKY MD ASA Classification: IV (IV-E) Indications: (*Please refer to today's GI consult)- INDX: 51-year-old male, alcoholic, Ibuprofen use, chronic pain syndrome, history of lower esophageal ring, food impaction, hematemesis. Instrument: diagnostic gastroscope Meds Received: MAC (& prophylactic intubation) Patient's Tolerance: good Complications: none Extent Reached: second part of duodenum Procedure: Upper endoscopy to the second portion of the duodenum was performed with the Olympus high definition videoendoscope, by the bedside in the [facility], room #108, after obtaining informed consent from the patient, with the environmental monitoring specialist and pulse oximeter, with the assistance of the GI nurses electronic coils supervisor, Jessica, and Dr. Parker, of [facility]. The patient was prophylactically intubated by anesthesiology to protect his airway, after he was sedated. A mouthpiece was then placed in the usual fashion to protect the patient's teeth. The patient was placed in the left lateral decubitus position after sedation & prophylactic intubation by [facility]. At this point, the endoscope was advanced from the mouth into the esophagus, using direct visualization technique. This was done multiple times, as retained food and clots were removed both in an antegrade and retrograde fashion. The ET tube was seen entering the vocal cords. The proximal esophageal mucosa appeared normal. There was limited viewing of the lower 1/3 of the esophagus, as a large amount of clots and retained food was seen starting at 35 cm. There appeared to be a small area patent lower esophageal ring at 44 cm, with perhaps a faint Z- line at this point. Otherwise, there were no esophageal webs or strictures. It is difficult to adequately comment on the mucosa of the lower 1/3 of the esophagus, as I could not completely clear the clots from this region. It certainly is possible the patient could have underlying esophagitis and/or esophageal ulceration, rule out esophageal lesion. *The patient was made aware postoperatively that he will need a repeat EGD under semielective conditions to clear the lower esophagus, timing to be determined by clinical course. No definite monilia or vesicles were seen, nor any definite esophageal rings, but again the feasibility of the lower esophagus was somewhat compromised by clot. There was a scant hiatal hernia pouch, without any Raheem erosions. No definite Tsering-Garsia tear was seen. The food in the distal esophagus was not completely impacted. I was able to visualize the esophageal lumen around the food. Part of the food was gently nudged into the stomach. The remainder of the food and some of the clots were removed by a combination of the [place] net, the 3-pronged grabber, and the basket. The aleman of the stomach distended normally with air insufflation. Direct and retroflexed views of the stomach were performed. There was nothing endoscopically to suggest gastroparesis or portal gastropathy. No gastric varices were seen. The Y-iopsy port was used to irrigate the esophagus and stomach with water. The mucosa of the gastric cardia was relatively normal, after clearing clots. The gastric fundus & lesser curvature exhibited some linear erythema, consistent with proximal gastritis. The mucosa of the incisura, body, and antrum appeared normal, without any gastric ulcers or gastric lesions. Blood and clots were essentially irrigated clear from the stomach, except for a scant area of the gastric cardia that had some residual clot, the majority of which was removed. The pylorus was patent, without any gastric outlet obstruction or channel ulcer. The duodenal bulb was shallow, but appeared normal, without any duodenal ulcer. The duodenal sweep appeared normal, without any duodenal ulcers, distal ulcerations, or angiodysplasias. Blood from above was irrigated clear from the duodenum. I was not able to see the ampulla with the direct-viewing scope. The folds of the second portion of the duodenum were normal in caliber, without any flattening, nodularity, scalloping, or mosaic pattern. The majority of the upper GI bleeding from the lower 1/2 of the esophagus had cleared, except for residual clot in this area. The patient tolerated the procedure well and was extubated by anesthesiology rapidly postoperatively. He seems to be going into withdrawal , but is still A & O x 3. Impression: 1. Clot partially cleared from lower 1/3 of esophagus, with a portion of the lower esophageal mucosa obscured. No definite esophageal varices seen. No gastric varices. No portal gastropathy. 2. Food cleared from lower esophagus, both in an antegrade and retrograde fashion, with patent esophageal lumen. 3. Suggestion of lower esophageal ring at 44 cm. 4. Small hiatal hernia pouch, without any Raheem erosions. No definite MWT seen. 5. Proximal linear gastritis. Biopsies deferred. 6. No evidence of peptic ulcer disease. Recommendations: ICU admit to hospitalist service. *NPO for now. Gentle IVF with NS. Replete electrolyte (i.e.- K+/Mg2+). *IV Protonix bolus 80 mg given, followed by IV Protonix drip at 8 mg/hour. *No need for Octreotide at present, as no definite varices seen. *Aspiration precautions. *If active re-bleed, may have to be prophylactically reintubated, to protect airway.*Watch magnesium levels on PPI. T&C 4u PRBC. Serial CBC Q6h for now. Keep Hgb > 7. Strict I's and O's. Follow- up INR, lytes & LFTs. Supplemental O2. *May need gentle restraints for EtOH withdrawal. Panculture. Continue IV Unasyn to cver possible aspiration (& 1 dose of Ceftriaxone given preop). *Follow-up chest x-ray, watch for impending aspiration PNA. *DT precautions. *Serial CIWA. *Ativan as needed. *Anti- emetics. Thiamine, folate, multivitamin via banana bag. No NSAIDs. *Check full Hepatitis A, B, & C serologies, & HIV. Consider checking SHAE. Check TFTs with TSH, B12, RBC folate. DVT prophylaxis with mechanical ALPS. *The patient will need a repeat EGD from an UGI bleed perspective, to better clear the lower 1/3 of the esophagus, timing to be determined by clinical course. *His issue of dysphagia/lower esophageal ring will have to be reassessed as an outpatient, perhaps with a barium swallow and semi-elective EGD with dilatation, after the issue of UGI bleeding is addressed. *He also is in need of an outpatient baseline colonoscopy for screening purposes. The above findings and recommendations were discussed with the medical house staff postoperatively. Further recommendations will follow, depending on clinical course. CC: OSCAR EDWARD,TESSIE; CARRIE SÁNCHEZ; LIVIA EDWARD,LORENZO Lizama; DC EDWARD, JOSE MILLS MD,CYRIL Verde
[2016-04-10] VITALS (17 sets, daily range): BP systolic 90–169; BP diastolic 55–99
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
--- NOTE | 2016-04-10 01:00 | NUR ---
PT AWAKE AND AGITATED AFTER PROCEDURE, TEMP 101.5. PT EDUARDO CULTURED AND IV TYLENOL GIVEN. PT LEFT ARM DEVELOPED HIVES AFTER MORPHINE ADMINISTRATION. MDS NOTIFIED AND AT BEDSIDE TO EVALUATE. NO FURTHER ORDERS. SKIN REMAINS GROSSLY INTACT. IV ATIVAN GIVEN FOR AGITATION.
[2016-04-10 01:29] LABS: ABSOLUTE BASOPHIL COUNT 0 /CUMM (0.0-0.2); ABSOLUTE EOSINOPHIL COUNT 0 /CUMM (0.0-0.7); ABSOLUTE GRANULOCYTE CT 7.2 /CUMM (1.4-6.5); ABSOLUTE LYMPH COUNT 0.3 /CUMM (1.2-3.4); ABSOLUTE MONOCYTE COUNT 0.9 /CUMM (0.10-0.60); BASOPHIL % 0 % (0.0-2.0); EOSINOPHIL % 0 % (0-5); HEMATOCRIT 30.9 % (42-52); MEAN CORPUSCULAR HGB 37.1 PG (27.0-31.0); MEAN CORPUSCULAR HGB CONC 34.6 G/DL (33.0-37.0); MEAN CORPUSCULAR VOLUME 107.1 FL (80.0-94.0); MEAN PLATELET VOLUME 8.9 FL (7.4-10.4); PLATELET COUNT 146 /CUMM (130-400); RBC DISTRIBUTION WIDTH 14.6 % (11.5-14.5); RED BLOOD CELL CT 2.88 /CUMM (4.70-6.10); WHITE BLOOD CELL COUNT 8.3 /CUMM (4.8-10.8)
--- NOTE | 2016-04-10 03:00 | NUR ---
PT REMAINS DROWSY AROUSABLE. PT RECIEVING ATIVAN PER CIWA. REQUESTING PAIN MEDICATION PRN. DILAUDID GIVEN AFTER LIDODERM PACTH INEFFECTIVE FOR PAIN. HIVES TO LEFT ARM NO LONGER RAISED. TEMP DOWN TO 100.4, WILL CONTINUE TO MOMITOR. PT VOIDING CLEAR CHINYERE URINE.
--- NOTE | 2016-04-10 03:48 | Admission Certification ---
Admission Certification Certification Statement - As attending physician, I certify that at the time of - admission, based on clinical presentation, severity of - symptoms, need for further diagnostic testing and - therapeutic interventions, and risk of adverse outcomes - without in-hospital treatment, in my clinical assessment, - this patient requires an acute hospital stay for a minimum - of two nights or longer. I have also considered psychsocial - factors such as support system, advanced age, financial - issues, cognitive issues, and failed out-patient treatments, - past re-admission history, safety of patient, and lack of - compliance as applicable. Specific rationale supporting this admission is: Acute upper GI bleed
[2016-04-10 06:00] LABS: ABSOLUTE BASOPHIL COUNT 0 /CUMM (0.0-0.2); ABSOLUTE EOSINOPHIL COUNT 0 /CUMM (0.0-0.7); ABSOLUTE GRANULOCYTE CT 7.5 /CUMM (1.4-6.5); ABSOLUTE LYMPH COUNT 0.4 /CUMM (1.2-3.4); ABSOLUTE MONOCYTE COUNT 0.9 /CUMM (0.10-0.60); BASOPHIL % 0 % (0.0-2.0); EOSINOPHIL % 0 % (0-5); GRANULOCYTE % 85.3 % (42.2-75.2); MEAN CORPUSCULAR HGB 37.2 PG (27.0-31.0); MEAN CORPUSCULAR HGB CONC 34.5 G/DL (33.0-37.0); MEAN CORPUSCULAR VOLUME 107.7 FL (80.0-94.0); MEAN PLATELET VOLUME 8.4 FL (7.4-10.4); PLATELET COUNT 138 /CUMM (130-400); RBC DISTRIBUTION WIDTH 14.8 % (11.5-14.5); RED BLOOD CELL CT 2.51 /CUMM (4.70-6.10); WHITE BLOOD CELL COUNT 8.7 /CUMM (4.8-10.8)
--- NOTE | 2016-04-10 07:31 | PN- Gastroenterology ---
Assessment/Plan Assessment/Recommendations: 51 y/o male, borderline hypertensive, nondiabetic, history of intermittent alcohol abuse since high school, more so over the past 4 days [employer], last drinking earlier today, past history of DTs, chronic pain syndrome on Oxycodone per Dr. Lee, with history of multiple falls (right TKR, post 4 previous right knee surgeries, multiple bilateral collarbone fractures, chronic back pain, DJD, herniated disc, shoulder pain), followed by Dr. Herring for primary care, claiming to average "8 drinks of EtOH weekly," with remote history of lower esophageal ring and food impaction. This required 12/14/2002: EGD x 2 same day (Dr. Shaq Umana/Dr. Shameka Gillette)- food impaction removed, lower esophageal ring, hiatal hernia. No varices or portal gastropathy noted at that time. The patient was put on a short course of Carafate and Nexium then. He was not compliant with suggested follow-up for semi-elective barium swallow & esophageal dilatation. 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 He has had rare intermittent dysphagia to solids since, which passed spontaneously. He normally has no difficulty swallowing liquids or pills. He has not had a baseline colonoscopy. There is no family history of GI disease, GI malignancy, or inherited liver disease. He denies any history of viral hepatitis, tattoos, or known history of HIV. He denies using any street drugs or IVDA, aside from the prescribed Oxycodone. He denies cigarette use. The patient was eating a ham and cheese sandwich at 4 PM 04/09/2016, followed by dysphagia, with a feeling of impaction in the mid chest. This was followed by mild odynophagia, and questionable mid-pleuritic chest pain, without any hemoptysis. The patient had clear vomiting, without bile, followed by retching, followed by vomiting bright red blood. He had a brown bowel movement earlier today. There is no history of rectal bleeding or melena. He drove himself to the [facility] 04/09/2016, arriving at 6:44 PM. He had some rags that were covered with blood. Upon presentation, BP 144/97, P- 112, R- 20, T- 97.1, O2 sat RA 99%. He continued to have a sensation of food stuck, with vomiting of blood. He denies any history of peptic ulcer disease. He denies any aspirin use, but takes Ibuprofen 4 tabs daily for years, for his chronic aches and pains. He claims he was transfused at [facility], where he went for a fractured left clavicle, but did not have surgery for this. The patient received Zofran, Protonix 80 mg IV bolus followed by Protonix drip, IV saline, Ativan, 1 amp of glucagon and SL NTG x 1, as his BP was stable, in order to try to get the food bolus to move. He did not get relief from this. The patient had low normal platelets, a borderline INR, and LFTs suggestive of alcoholic hepatitis, with [EtOH] 65, upon presentation (*see labs). Previous imaging studies did not show a cirrhotic liver. The patient desaturated slightly 04/09/2016 at 7:56 PM (O2 sat RA 89%), was put on O2 2L nc. *Admission chest x-ray did not show any evidence of aspiration, but it might be too soon to tell. *I advised the ER to give the patient IV Unasyn 3g (to cover his lungs) and 1 dose of empiric IV Ceftriaxone 1g (in case esophageal banding is needed). The patient denies any jaundice, dark urine, light stool, pruritus, or confusion. He admits to rare symptoms of GERD. He denies any fevers, chills, shortness of breath, early satiety, abdominal pain, diarrhea, constipation, obstipation, or tenesmus. He denies any symptoms of UTI or URI. He denies any significant weight loss or change in appetite. He is on a water pill and potassium for periodic lower extremity edema. He denies any increased abdominal girth. He denies any known history of cirrhosis. 10/28/2015: *Previous ER labs- WBC 8.4, H/H 8.6/24.9, elevated MCV 109.4, elevated RDW 16.7, PLT 121, PT 15.9, INR 1.51, PTT 37, glucose 138, BUN/Cr 3/0.5 , sodium 134, potassium 4.3, bicarbonate 22, AG 16, albumin 2.9, globulin 3.3, TBil 6.4, DBil 4.5, alkaline phosphatase 244, AST 309, ALT 69, A/L 115/315, troponin < 0.01. 04/09/2016: *Admission labs 6:56 p.m.- CBC 5.6, H/H 11.4/33, MCV 107.9, RDW 14.6 , PLT 152, PT 13.3, INR 1.27, PTT 38, glucose 113, BUN/Cr 9/0.7, GFR > 60, sodium 134, potassium 3.3, bicarbonate 29, AG 13, magnesium 1.1, calcium 8.9, albumin 3.7, globulin 3.4, TBil 1.5 (without fracs), alk phos 143, AST 163, ALT 66, [EtOH] 65, elevated lactate 2.6. 04/09/2016: *Discriminant function by Maddrey formula- 7.48. 04/09/2016: *Repeat CBC 8:14 p.m.- WBC 5.7, H/H 11.0/32.0, MCV 108.5, RDW 15, PLT 136 10/28/2015: CT ABDOMEN AND PELVIS WITH IV CONTRAST (per ER)- 1. Edema around contracted gallbladder suggesting acute cholecystitis. No bile duct dilatation. CBD 3 mm. Normal pancreas. Normal spleen. 2. Hepatomegaly with diffuse fatty infiltration of liver. No focal liver lesion. No mention of ascites. 3. DJD. 04/09/2016: EKG- ST @ 100, LAE, LAD, without acute ischemic changes. 04/09/2016: XR PORTABLE CHEST- No evidence of aspiration pneumonia. No effusion or CHF. Lungs clear. *The patient is having an upper GI bleed that started in the setting of a food impaction. He has a remote history of a lower esophageal ring in 12/2002, for which he was not compliant with suggested semi-elective esophageal dilatation. There is a substantial history of alcohol abuse. Recent 10/28/2015: CT AP with contrast showed an enlarged fatty liver without evidence of cirrhosis or portal collaterals. He has a significant history of Ibuprofen use. He has low normal platelets with a borderline INR. His albumin:globulin ratio is normal. He has a negative discriminant function (7.48) by the Maddrey formula regarding his EtOH hepatitis, but he would not be a candidate for Prednisolone or Trental anyway, in view of his active upper GI bleeding. I feel that an IV Protonix drip is sufficient on admission, and will defer Octreotide, unless varices are seen on EGD. *Vast differential diagnosis for the above includes esophageal ulceration in the setting of food impaction, Tsering-Garsia tear post retching, peptic ulcer disease and/or NSAID gastropathy, etc., with a less likely possibility of variceal bleeding. Doubt neoplasm. Again, there has been no documented cirrhosis in the past, and the bleeding occurred after the food impaction. Other considerations regarding the dysphagia, aside from the esophageal ring, could include stricture vs. EOE > esophageal dysmotility, by history. The oxygen desaturation is noted despite the clear chest x-ray, and it is possible the patient could have aspirated preop. 04/09/2016: EGD WITH FOREIGN BODY REMOVAL- 1. Clot partially cleared from lower 1/3 of esophagus, with a portion of the lower esophageal mucosa obscured. No definite esophageal varices seen. No gastric varices. No portal gastropathy. 2. Food cleared from lower esophagus, both in an antegrade and retrograde fashion, with patent esophageal lumen. 3. Suggestion of lower esophageal ring at 44 cm. 4. Small hiatal hernia pouch, without any Raheem erosions. No definite MWT seen. 5. Proximal linear gastritis. Biopsies deferred. 6. No evidence of peptic ulcer disease. *As of 04/10/2016, the patient's blood pressure is normal. He remains tachycardic. He spiked to 101.5 with O2 sat 4L 94%. Clinically, he aspirated in the ER, as he had a low-grade temp and drop in his O2 sat, prior to the EGD. He remains extubated. His H/H have dropped after IVF & equilibration, as expected, as his admission H/H were probably falsely elevated based on his previous CBC, due to initial hemoconcentration, superimposed on the UGI bleed. Unasyn has been continued to cover probable aspiration pneumonia, although repeat CXR post EGD without infiltrate. He has been cultures. Ativan has been added. He remains on an IV Protonix drip. Electrolytes are being repleted. He is receiving his chronic pain medications. He is slightly lethargic (on Ativan) , yet A & O x 3. CIWA have ranged from 4-16. He has pulled out one of his IV lines. His hematemesis is improving. He has occasionally vomited up a clot. His dysphagia seems to be improving post EGD, although not completely. He is able to clear his upper airway secretions. He has not yet had a bowel movement since admission. There is no melena or rectal bleeding, although I expect his stools to eventually be black. 04/10/2016: CXR- Low lung volumes with bibasilar atelectasis. No acute pulmonary findings. Gaseous distention of the stomach, post EGD. Known fractured left clavicle. 04/09/2016: *B12 526, folate 14.0. 04/09/2016: *U Tox- OP/MS > 4000. 04/10/2016: *troponin- neg x 3; lactate normalized 1.4, PO4 2.6. 04/10/2016: *Hep A Ab, Hep Bs Ag, Hep B core Ab, Hep C Ab- all negative; HIV- negative. 04/10/2016: *normal FT4 1.54, normal TSH 0.406. 04/10/2016: *SHAE- pending. 04/10/2016: *BC X 2- pending. 04/10/2016: *UC- pending. SUGGEST: Maintain in ICU. *NPO except ice chips. *Aspiration precautions. Gentle IVF with NS. Replete electrolytes (i.e.- K+/Mg2+). *Continue IV Protonix drip at 8 mg/ hour. *No need for Octreotide at present, as no definite varices seen.*If active re-bleed, may have to be prophylactically reintubated, to protect airway.*Watch magnesium levels on PPI. T&C 4u PRBC. Serial CBC Q6h for now. Keep Hgb > 7 (no need to transfx at present). Strict I's and O's. Follow-up INR, lytes & LFTs. Supplemental O2. *May need gentle restraints for EtOH withdrawal. *Follow up cultures. Continue IV Unasyn to cover possible aspiration (1 dose of Ceftriaxone was given on admission preop). *CXR x 2- negative, but watch for impending aspiration PNA. *DT precautions. *Serial CIWA. *Ativan as needed. *Anti- emetics. Thiamine, folate, multivitamin via banana bag. *No NSAIDs. *Await 06/2016: SHAE. DVT prophylaxis with mechanical ALPS. *The patient will need a repeat EGD from an UGI bleed perspective, to better clear the lower 1/3 of the esophagus, timing to be determined by clinical course. (Clots from NSAID use, etc were "plugged up" by food in the lower esophagus). *His issue of dysphagia/ lower esophageal ring will have to be reassessed as an outpatient, perhaps with a barium swallow and semi-elective EGD with dilatation, after the issue of UGI bleeding is addressed. *He also is in need of an outpatient baseline colonoscopy for screening purposes. The above findings and recommendations were again discussed with the medical house staff. Further recommendations to follow, depending on clinical course. 1/2 hour of ICU care was spent on the patient. Problem List: 1. Dysphagia 2. Food impaction of esophagus 3. Upper GI bleed 4. Lower esophageal ring 5. Hiatal hernia 6. Alcohol abuse 7. Alcohol withdrawal syndrome 8. Alcoholic hepatitis 9. Fatty liver 10. Macrocytic anemia 11. NSAIDs adverse reaction 12. Chronic pain syndrome Subjective Subjective: 04/09/2016: EGD WITH FOREIGN BODY REMOVAL- 1. Clot partially cleared from lower 1/3 of esophagus, with a portion of the lower esophageal mucosa obscured. No definite esophageal varices seen. No gastric varices. No portal gastropathy. 2. Food cleared from lower esophagus, both in an antegrade and retrograde fashion, with patent esophageal lumen. 3. Suggestion of lower esophageal ring at 44 cm. 4. Small hiatal hernia pouch, without any Raheem erosions. No definite MWT seen. 5. Proximal linear gastritis. Biopsies deferred. 6. No evidence of peptic ulcer disease. *As of 04/10/2016, the patient's blood pressure is normal. He remains tachycardic. He spiked to 101.5 with O2 sat 4L 94%. Clinically, he aspirated in the ER, as he had a low-grade temp and drop in his O2 sat, prior to the EGD. He remains extubated. His H/H have dropped after IVF & equilibration, as expected, as his admission H/H were probably falsely elevated based on his previous CBC, due to initial hemoconcentration, superimposed on the UGI bleed. Unasyn has been continued to cover probable aspiration pneumonia, although repeat CXR post EGD without infiltrate. He has been cultures. Ativan has been added. He remains on an IV Protonix drip. Electrolytes are being repleted. He is receiving his chronic pain medications. He is slightly lethargic (on Ativan) , yet A & O x 3. CIWA have ranged from 4-16. He has pulled out one of his IV lines. His hematemesis is improving. He has occasionally vomited up a clot. His dysphagia seems to be improving post EGD, although not completely. He is able to clear his upper airway secretions. He has not yet had a bowel movement since admission. There is no melena or rectal bleeding, although I expect his stools to eventually be black. 04/10/2016: CXR- Low lung volumes with bibasilar atelectasis. No acute pulmonary findings. Gaseous distention of the stomach, post EGD. Known fractured left clavicle. Review of Systems: Full 14 point review of systems otherwise noncontributory, and as above. Review of Systems Constitutional: Reports: fever Denies: chills, diaphoresis, malaise, weakness, unexplained weight loss. EENTM: Denies: blurred vision, double vision, visual changes, eye pain, eye drainage, eye tearing, icterus, ear discharge, ear pain, ear redness, hearing changes, nasal congestion, epistaxis, nasal pain, throat pain, throat swelling, mouth pain, tooth pain. Cardiovascular: Reports: chest pain (mild mid-pleuritic post FB)- improved. Denies: edema, orthopena, palpitations, peripheral edema, syncope. Respiratory: Denies: cough, hemoptysis, orthopnea, short of breath, sputum production, stridor, wheezing. GI: Reports: vomiting (hematemesis post FB- improving; dysphagia- improving). Denies: abdominal pain, bloating, constipation, diarrhea, distention, bowel incontinence, melena, nausea, bloody stool, changes in stool, steatorrhea. Genitourinary: Denies: discharge, dysuria, frequency, hematuria, hesitation, nocturia, pain, urgency. Musculoskeletal: Reports: back pain, joint pain (chronic pain; fxd clavicle). Denies: gout, joint swelling, muscle pain, muscle stiffness, neck pain. Skin: Denies: cysts, change in skin color, change in hair/nails, dryness, erythema, jaundice, lesions, lymphangitis, lumps, moles, rash. Neurological/Psychological: Reports: anxiety, tremors, withdrawal. Denies: ataxia, cognitive dysfunction, confusion, depressed, dementia, emotional problems, headache, numbness, paresthesia, pre-existing deficit, petit mal seizures, tingling, tonic-clonic seizures, unable to move lower ext, unable to move upper ext, weakness. Hematologic/Endocrine: Denies: bruising, bleeding, polyuria, polydipsia. Immunologic/Allergic: Denies: splenectomy, HIV/AIDS, lymphadenopathy. All Other Systems: Reviewed and Negative Objective Vital Signs and I&Os Vital Signs Date Time Temp Pulse Resp B/P Pulse O2 O2 Flow FiO2 Ox Delivery Rate 04/10 0600 99.3 108 20 116/78 04/10 0400 126 32 119/67 04/10 0400 94 Nasal 4.0L Cannula 04/10 0314 100.4 04/10 0212 101.5 04/10 0200 128 24 90/55 04/10 0100 101.5 116 24 138/88 04/10 0000 130 20 147/83 04/09 2228 99.3 116 20 182/88 04/09 2228 100 Nasal 2.0L Cannula 04/09 2101 99.9 114 20 145/78 95 Nasal 2.0L Cannula 04/09 2005 110 15 120/80 100 Nasal 2.0L Cannula 04/09 195 Room Air Room Air 04/09 1934 94 15 142/78 04/09 1912 102 147/83 04/09 1906 92 149/81 04/09 190 97.1 100 20 144/97 99 Room Air Intake & Output 04/10 1600 04/10 0400 04/09 1600 04/09 0400 04/08 1600 04/08 0400 Intake Total 1660 1320 Output Total 675 150 Balance 985 1170 Intake, IV 1660 1320 Intake, Oral 0 Output, 75 150 Emesis Output, Urine 600 Patient 210 lb Weight Physical Exam: Chronically ill-appearing, well-nourished male, anxious, in mild distress, go through withdrawal. Improved vomiting with a few clots from above. Sclera anicteric. Conjunctiva slightly pale. Oropharynx clear. No oral thrush. No aphthous ulcers. No stridor. No head and neck or chest wall crepitus. There is no adenopathy, thyromegaly, or JVD. Slightly deformed left clavicle. No peripheral stigmata of inflammatory bowel disease or chronic liver disease on exam, aside from mild gynecomastia B/L, without masses or discharge. There are no spiders on the anterior chest wall. No CVA tenderness. Lungs: clear to A&P, with slight decreased breath sounds at the bases B/L. No wheezing, rales, rhonchi, or rub. No CWT. Heart exam: regular rate rhythm, S1 and S2, without any murmur. Abdominal exam: normal bowel sounds, soft belly, nontender, without guarding or rebound. No mass. Enlarged liver, approximately 20 cm by percussion. Negative Garcia sign. No splenomegaly. No fluid shift. No pulsatile mass. Digital rectal exam: refused by patient. Extremities: without C , C, or E. No palpable cords. No Dupuytren's contractures. No palmar erythema. Distal pulses 2+ bilaterally. DTRs 2+ bilaterally. Left handed. CN II-XII intact. Alert and oriented x 3, but slightly lethargic & less agitated, on Ativan. Mild tremor. No asterixis. Current Medications: Current Medications Sig/Liat Start time Last Medication Dose Route Stop Time Status Admin Acetaminophen 1,000 MG ONCE ONE 04/10 0130 DC 04/10 N/A 1 UNIT IV 04/10 0144 0212 Ampicillin Sodium/ 3,000 MG Q6H 04/10 0400 AC 04/10 Sulbactam Sodium IV 0409 Sodium Chloride 100 ML Ampicillin Sodium/ 3,000 MG ONCE ONE 04/09 2044 DC 04/09 Sulbactam Sodium IV 04/09 2113 2211 Sodium Chloride 100 ML Ceftriaxone Sodium 0 .STK-MED ONE 04/09 2118 DC .ROUTE Ceftriaxone Sodium 1,000 MG ONCE ONE 04/09 2044 DC 04/09 IV 04/09 Cyanocobalamin/ 1 BAG DAILY 04/10 0230 04/10 Thiamine/Pyridoxine IV 0532 Sodium Chloride 1,000 ML Fentanyl Citrate 100 MCG .STK-MED ONE 04/09 2349 DC IM 04/09 2350 Glucagon 1 MG ONCE ONE 04/09 1929 DC 04/09 IV PUSH 01/02 1931 1935 Glucagon 0 .STK-MED ONE 04/09 1918 DC .ROUTE Hydromorphone HCl 1 MG ONCE ONE 04/10 0715 DC 04/10 IV 04/10 0716 0710 Hydromorphone HCl 1 MG ONCE ONE 04/10 0330 DC 04/10 IV 04/10 0331 0334 Lidocaine 1 PAT ONCE ONE 04/10 0100 DC 04/10 EXT 04/10 0101 0146 Lorazepam 0 Q1P PRN 04/09 2200 AC 04/10 IV 0532 Lorazepam 0 .STK-MED ONE 04/09 2117 DC .ROUTE Lorazepam 1 MG ONCE ONE 04/09 2044 DC 04/09 IV 04/09 204 2124 Lorazepam 0 .STK-MED ONE 04/09 1914 DC .ROUTE Lorazepam 1 MG ONCE ONE 04/09 190 DC 04/09 IV 04/09 190 191 Magnesium Sulfate 1 GM ONCE ONE 04/10 0630 AC 04/10 Dextrose/Water 100 ML IV 04/10 1029 0640 Magnesium Sulfate 1 GM Q1H 04/10 0245 DC Dextrose/Water 100 ML IV 04/10 0444 Magnesium Sulfate 1 GM Q1H 04/09 2200 DC 04/10 Dextrose/Water 100 ML IV 04/09 2359 0211 Morphine Sulfate 2 MG ONCE ONE 04/09 2215 DC 04/10 IV 04/09 2216 0026 Morphine Sulfate 2 MG ONCE ONE 04/09 2199 DC 04/09 IV 04/09 220 220 Nitroglycerin 0.4 MG ONCE ONE 04/09 1945 DC 04/09 SL 04/09 1946 1950 Ondansetron HCl 4 MG Q6P PRN 04/10 0100 AC 04/10 IV 0319 Ondansetron HCl 4 MG ONCE ONE 04/09 190 DC 04/09 IV 04/09 190 1908 Ondansetron HCl 0 .STK-MED ONE 04/09 1854 DC .ROUTE Oxycodone HCl 10 MG Q4 HRS NEEDED PRN 04/10 1000 AC PO Pantoprazole Sodium 0 .STK-MED ONE 04/09 1912 DC IV Pantoprazole Sodium 0 .STK-MED ONE 04/09 191 DC IV Pantoprazole Sodium 80 MG ONCE ONE 04/09 190 DC 04/09 IV 04/09 [id number] Pantoprazole Sodium 40 MG Q5H 04/09 1900 AC 04/10 Sodium Chloride 100 ML IV 0409 Pantoprazole Sodium 0 .STK-MED ONE 04/09 1859 DC IV Pantoprazole Sodium 0 .STK-MED ONE 04/09 1855 DC IV Potassium Chloride 10 MEQ Q1H 04/10 0700 DC IV 04/10 0801 Potassium Chloride 10 MEQ ONCE ONE 04/10 0630 CAN IV 04/10 0700 Potassium Chloride 10 MEQ ONCE ONE 04/10 0630 DC 04/10 IV 04/10 0631 0640 Potassium Chloride 10 MEQ ONCE ONE 04/10 0630 CAN IV 04/10 0631 Potassium Chloride 10 MEQ ONCE ONE 04/10 0630 CAN IV 04/10 0631 Potassium Chloride 10 MEQ Q1H 04/09 2200 DC 04/10 IV 04/09 2301 0211 Sodium Chloride 1,000 ML .[id number] 04/09 2200 DC 04/09 IV 2210 Sodium Chloride 1,000 ML BOLUS ONE 04/09 1900 DC 04/09 IV 04/09 1959 1913 Thiamine HCl 100 MG ONCE ONE 04/10 0130 CAN Sodium Chloride 100 ML IV 04/10 0229 Trimethobenzamide HCl 200 MG ONCE ONE 04/09 2345 DC 04/10 IM 04/09 2346 0001 Results Pertinent Lab Results: Laboratory Tests 04/10 04/10 04/10 04/10 0532 0532 0532 0140 Chemistry Sodium (137 - 145 mmol/L) 136 L Potassium (3.5 - 5.1 mmol/L) 3.1 L Chloride (98 - 107 mmol/L) 97 L Carbon Dioxide (22 - 30 mmol/L) 28 Anion Gap (5 - 16) 11 BUN (9 - 20 mg/dL) 14 Creatinine (0.7 - 1.2 mg/dL) 0.6 L Estimated GFR (>60 ml/min) > 60 Glucose (65 - 99 mg/dL) 145 H Lactic Acid (0.7 - 2.1 mmol/L) 1.4 2.2 H Calcium (8.4 - 10.2 mg/dL) 7.9 L Phosphorus (2.5 - 4.5 mg/dL) 2.6 Magnesium (1.6 - 2.3 mg/dL) 1.6 Total Bilirubin (0.2 - 1.3 mg/dL) 1.6 H AST (17 - 59 U/L) 104 H ALT (21 - 72 U/L) 54 Troponin I (<0.11 ng/ml) 0.01 Albumin (3.5 - 5.0 g/dL) 2.9 L TSH (0.270 - 4.200 uIU/mL) 0.406 Free T4 (0.64 - 1.79 ng/dL) 1.54 Hematology CBC w Diff MAN DIFF ORDERED WBC (4.8 - 10.8 /CUMM) 8.7 RBC (4.70 - 6.10 /CUMM) 2.51 L Hgb (14.0 - 18.0 G/DL) 9.3 L Hct (42 - 52 %) 27.0 L MCV (80.0 - 94.0 FL) 107.7 H MCH (27.0 - 31.0 PG) 37.2 H RDW (11.5 - 14.5 %) 14.8 H Plt Count (130 - 400 /CUMM) 138 MPV (7.4 - 10.4 FL) 8.4 Gran % (42.2 - 75.2 %) 85.3 H Lymphocytes % (20.5 - 51.1 %) 4.8 L Monocytes % (1.7 - 9.3 %) 9.9 H Eosinophils % (0 - 5 %) 0 Basophils % (0.0 - 2.0 %) 0 L Absolute Granulocytes (1.4 - 6.5 /CUMM) 7.5 H Segmented Neutrophils (42.2 - 75.2 %) 78 H Band Neutrophils (0.0 - 5.0 %) 11 H Absolute Lymphocytes (1.2 - 3.4 /CUMM) 0.4 L Lymphocytes (20.5 - 51.1 %) 7 L Monocytes (1.7 - 9.3 %) 4 Absolute Monocytes (0.10 - 0.60 /CUMM) 0.9 H Absolute Eosinophils (0.0 - 0.7 /CUMM) 0 Absolute Basophils (0.0 - 0.2 /CUMM) 0 Nucleated RBCs (0.0 - 0.0 /100WBC) 1 H Platelet Estimate (ADEQUATE) DECREASED Polychromasia 1+ Hypochromic-Microcytic 1+ PUBS MCHC (33.0 - 37.0 G/DL) 34.5 Immunology SHAE Titer Pending Anti-Nuclear Antibody Pending Serology Hepatitis A IgM Ab (NONREACTIVE) NONREACTIVE Hep Bs Antigen (NONREACTIVE) NONREACTIVE Hep B Core IgM Ab Conf (NONREACTIVE) NONREACTIVE Hepatitis C Antibody (NONREACTIVE) NONREACTIVE HIV 1&2 Ab Western Blot (NONREACTIVE) NONREACTIVE 04/10 04/09 0030 2359 Chemistry Sodium (137 - 145 mmol/L) 136 L Potassium (3.5 - 5.1 mmol/L) 3.3 L Chloride (98 - 107 mmol/L) 96 L Carbon Dioxide (22 - 30 mmol/L) 26 Anion Gap (5 - 16) 14 BUN (9 - 20 mg/dL) 14 Creatinine (0.7 - 1.2 mg/dL) 0.6 L Estimated GFR (>60 ml/min) > 60 Glucose (65 - 99 mg/dL) 143 H Calcium (8.4 - 10.2 mg/dL) 8.2 L Phosphorus (2.5 - 4.5 mg/dL) 2.5 Magnesium (1.6 - 2.3 mg/dL) 0.9 *L Total Bilirubin (0.2 - 1.3 mg/dL) 1.8 H AST (17 - 59 U/L) 132 H ALT (21 - 72 U/L) 65 Troponin I (<0.11 ng/ml) < 0.01 Albumin (3.5 - 5.0 g/dL) 3.4 L Hematology CBC w Diff MAN DIFF ORDERED WBC (4.8 - 10.8 /CUMM) 8.3 RBC (4.70 - 6.10 /CUMM) 2.88 L Hgb (14.0 - 18.0 G/DL) 10.7 L Hct (42 - 52 %) 30.9 L MCV (80.0 - 94.0 FL) 107.1 H MCH (27.0 - 31.0 PG) 37.1 H RDW (11.5 - 14.5 %) 14.6 H Plt Count (130 - 400 /CUMM) 146 MPV (7.4 - 10.4 FL) 8.9 Gran % (42.2 - 75.2 %) 86.0 H Lymphocytes % (20.5 - 51.1 %) 3.6 L Monocytes % (1.7 - 9.3 %) 10.4 H Eosinophils % (0 - 5 %) 0 Basophils % (0.0 - 2.0 %) 0 L Absolute Granulocytes (1.4 - 6.5 /CUMM) 7.2 H Absolute Lymphocytes (1.2 - 3.4 /CUMM) 0.3 L Absolute Monocytes (0.10 - 0.60 /CUMM) 0.9 H Absolute Eosinophils (0.0 - 0.7 /CUMM) 0 Absolute Basophils (0.0 - 0.2 /CUMM) 0 Platelet Estimate (ADEQUATE) ADEQUATE Polychromasia 1+ Hypochromic-Microcytic 1+ PUBS MCHC (33.0 - 37.0 G/DL) 34.6 Toxicology Urine Opiates Screen (>2000 NG/ML) > 4000.00 H Methadone Screen (>300 NG/ML) 44 Barbiturate Screen (>200 NG/ML) < 60 Ur Phencyclidine Scrn (>25 NG/ML) < 6.00 Amphetamines Screen (>1000 NG/ML) < 100 U Benzodiazepines Scrn (>200 NG/ML) < 85 Urine Cocaine Screen (>300 NG/ML) < 50 Urine Cannabis Screen (>50 NG/ML) < 5.00 04/09 1856 Chemistry Sodium (137 - 145 mmol/L) 134 L Potassium (3.5 - 5.1 mmol/L) 3.3 L Chloride (98 - 107 mmol/L) 93 L Carbon Dioxide (22 - 30 mmol/L) 29 Anion Gap (5 - 16) 13 BUN (9 - 20 mg/dL) 9 Creatinine (0.7 - 1.2 mg/dL) 0.7 Estimated GFR (>60 ml/min) > 60 BUN/Creatinine Ratio (7 - 25 %) 12.9 Glucose (65 - 99 mg/dL) 113 H Lactic Acid (0.7 - 2.1 mmol/L) 2.6 H Calcium (8.4 - 10.2 mg/dL) 8.9 Magnesium (1.6 - 2.3 mg/dL) 1.1 L Total Bilirubin (0.2 - 1.3 mg/dL) 1.5 H AST (17 - 59 U/L) 163 H ALT (21 - 72 U/L) 66 Alkaline Phosphatase (< 127 U/L) 143 H Troponin I (<0.11 ng/ml) < 0.01 Total Protein (6.3 - 8.2 g/dL) 7.1 Albumin (3.5 - 5.0 g/dL) 3.7 Globulin (1.9 - 4.2 gm/dL) 3.4 Albumin/Globulin Ratio (1.1 - 2.2 %) 1.1 Vitamin B12 (239 - 931 pg/mL) 526 Folate (2.76 - 20.0 ng/mL) 14.0 Coagulation PT (9.4 - 12.5 SEC) 13.3 H INR (0.90 - 1.17) 1.27 H APTT (25 - 37 SEC) 38 H Hematology CBC w Diff NO MAN DIFF REQ NO MAN DIFF REQ WBC (4.8 - 10.8 /CUMM) 5.7 5.6 RBC (4.70 - 6.10 /CUMM) 2.95 L 3.06 L Hgb (14.0 - 18.0 G/DL) 11.0 L 11.4 L Hct (42 - 52 %) 32.0 L 33.0 L MCV (80.0 - 94.0 FL) 108.5 H 107.9 H MCH (27.0 - 31.0 PG) 37.3 H 37.3 H RDW (11.5 - 14.5 %) 15.0 H 14.6 H Plt Count (130 - 400 /CUMM) 136 152 MPV (7.4 - 10.4 FL) 8.3 8.4 Gran % (42.2 - 75.2 %) 82.6 H 74.2 Lymphocytes % (20.5 - 51.1 %) 7.4 L 15.0 L Monocytes % (1.7 - 9.3 %) 9.5 H 10.4 H Eosinophils % (0 - 5 %) 0.1 0.1 Basophils % (0.0 - 2.0 %) 0.4 0.3 Absolute Granulocytes (1.4 - 6.5 /CUMM) 4.7 4.1 Absolute Lymphocytes (1.2 - 3.4 /CUMM) 0.4 L 0.8 L Absolute Monocytes (0.10 - 0.60 /CUMM) 0.5 0.6 Absolute Eosinophils (0.0 - 0.7 /CUMM) 0 0 Absolute Basophils (0.0 - 0.2 /CUMM) 0 0 PUBS MCHC (33.0 - 37.0 G/DL) 34.4 34.5 Toxicology Serum Alcohol (<10 MG/DL) 65.0 Imaging/Other Studies: 10/28/2015: CT ABDOMEN AND PELVIS WITH IV CONTRAST (per ER)- 1. Edema around contracted gallbladder suggesting acute cholecystitis. No bile duct dilatation. CBD 3 mm. Normal pancreas. Normal spleen. 2. Hepatomegaly with diffuse fatty infiltration of liver. No focal liver lesion. No mention of ascites. 3. DJD. 04/09/2016: EKG- ST @ 100, LAE, LAD, without acute ischemic changes. 04/09/2016: XR PORTABLE CHEST- No evidence of aspiration pneumonia. No effusion or CHF. Lungs clear. 04/10/2016: CXR- Low lung volumes with bibasilar atelectasis. No acute pulmonary findings. Gaseous distention of the stomach, post EGD. Known fractured left clavicle.
--- NOTE | 2016-04-10 08:30 | Cons- CRCU ---
ROSIBEL EDWARD,MITA 04/10/16 0830: General Information and HPI Consulting Request Date of Consult: 04/10/16 Requested By: Carolina Casarez Reason for Consult: CRCU management Source of Information: patient, old records, EMS Exam Limitations: no limitations History of Present Illness: He is 51-year-old man with past medical history of food impaction in esophagus in 2002 status post upper GI endoscopy for removal, Schatzki ring, hiatal hernia , past medical history of pancreatitis, chronic pain syndrome (right knee, back, left shoulder pain) on oxycodone and ibuprofen (takes 200 mg tablet 4 times a day for months) and alcohol abuse (drinks 3 times per week, each time 2-3 beers, drank 8 beers on per pt) presented to ER with complaint of vomiting bright red blood. According to patient around 4 PM he was eating a sandwich that got stuck in his chest and he started vomiting initially clear liquid and later on he started vomiting blood. Patient also reports dizziness lightheadedness. He denies any abdominal pain, melena, bright red blood per rectum. He denies any history of peptic ulcer disease. Upon my evaluation in ER patient is still having sensation of food stuck in his chest and is vomiting bright red blood including clots. Patient denies history of smoking or using recreational drugs. He is on disability. Lives with his father. This is the first time in his life he is vomiting blood. Allergies/Medications Allergies: Coded Allergies: morphine (Mild, HIVE 04/10/16) Home Med List: Furosemide (Lasix) 40 MG TABLET 1 TAB PO BID LEG SWELLING (Reported) Ibuprofen 200 MG CAPSULE 4 CAP PO PRN PAIN (Reported) Oxycodone HCl 10 MG TABLET 1 TAB PO Q4H PRN CHRONIC PAIN (Reported) Potassium Chloride 10 MEQ TAB.ER.PRT 1 TAB PO DAILY SUPPLEMENT (Reported) Current Medications: Current Medications Sig/Liat Start time Last Medication Dose Route Stop Time Status Admin Acetaminophen 1,000 MG ONCE ONE 04/10 0130 DC 04/10 N/A 1 UNIT IV 04/10 0144 0212 Ampicillin Sodium/ 3,000 MG Q6H 04/10 0400 AC 04/10 Sulbactam Sodium IV 2134 Sodium Chloride 100 ML Cyanocobalamin/ 1 BAG DAILY 04/10 0230 AC 04/10 Thiamine/Pyridoxine IV 0532 Sodium Chloride 1,000 ML Dextrose/Sodium 1,000 ML Q20H 04/10 1999 AC 04/10 Chloride IV 2017 Fentanyl Citrate 100 MCG .STK-MED ONE 04/09 2349 DC IM 04/09 2350 Hydromorphone HCl 1 MG ONCE ONE 04/10 1200 DC 04/10 IV 04/10 1201 1158 Hydromorphone HCl 1 MG Q4P PRN 04/10 1200 AC 04/10 IV 1812 Hydromorphone HCl 2 MG .STK-MED ONE 04/10 1146 DC IV 04/10 1147 Hydromorphone HCl 0.6 MG Q4P PRN 04/10 0815 DC 04/10 IV 1049 Hydromorphone HCl 1 MG ONCE ONE 04/10 0715 DC 04/10 IV 04/10 0716 0710 Hydromorphone HCl 1 MG ONCE ONE 04/10 0330 DC 04/10 IV 04/10 0331 0334 Lidocaine 1 PAT ONCE ONE 04/10 0100 DC 04/10 EXT 04/10 0101 0146 Lorazepam 0 Q1P PRN 04/09 2200 AC 04/10 IV 2046 Magnesium Sulfate 1 GM .STK-MED ONE 04/10 0634 DC IM 04/10 0635 Magnesium Sulfate 1 GM ONCE ONE 04/10 0630 DC 04/10 Dextrose/Water 100 ML IV 04/10 1029 0640 Magnesium Sulfate 1 GM Q1H 04/10 0245 DC Dextrose/Water 100 ML IV 04/10 0444 Magnesium Sulfate 1 GM .STK-MED ONE 04/10 0206 DC IM 04/10 0207 Magnesium Sulfate 1 GM .STK-MED ONE 04/10 0017 DC IM 04/10 0018 Magnesium Sulfate 1 GM Q1H 04/09 2200 DC 04/10 Dextrose/Water 100 ML IV 04/09 2359 0211 Morphine Sulfate 10 MG .STK-MED ONE 04/10 0015 DC IM 04/10 0016 Morphine Sulfate 2 MG ONCE ONE 04/09 2215 DC 04/10 IV 04/09 2216 0026 Morphine Sulfate 2 MG ONCE ONE 04/09 2200 DC 04/09 IV 04/09 2201 2205 Ondansetron HCl 4 MG Q6P PRN 04/10 0100 AC 04/10 IV 1730 Oxycodone HCl 10 MG Q4 HRS NEEDED PRN 04/10 1000 CAN PO Pantoprazole Sodium 40 MG Q5H 04/09 1900 AC 04/10 Sodium Chloride 100 ML IV 2012 Potassium Chloride 10 MEQ .STK-MED ONE 04/10 1146 DC IV 04/10 1147 Potassium Chloride 10 MEQ Q1H 04/10 0700 DC 04/10 IV 04/10 0801 1021 Potassium Chloride 10 MEQ ONCE ONE 04/10 0630 CAN IV 04/10 0700 Potassium Chloride 10 MEQ ONCE ONE 04/10 0630 DC 04/10 IV 04/10 0631 0640 Potassium Chloride 10 MEQ ONCE ONE 04/10 0630 CAN IV 04/10 0631 Potassium Chloride 10 MEQ ONCE ONE 04/10 0630 CAN IV 04/10 0631 Potassium Chloride 10 MEQ Q1H 04/09 2200 DC 04/10 IV 04/09 2301 0211 Sodium Chloride 1,000 ML Q20H 04/10 1330 DC IV Sodium Chloride 1,000 ML .[id number] 04/09 2200 DC 04/09 IV 2210 Thiamine HCl 100 MG ONCE ONE 04/10 0130 CAN Sodium Chloride 100 ML IV 04/10 0229 Trimethobenzamide HCl 200 MG TID PRN 04/10 1300 AC IM Trimethobenzamide HCl 200 MG ONCE ONE 04/09 2345 DC 04/10 IM 04/09 2346 0001 Review of Systems Review of Systems Constitutional: Reports: no symptoms, see HPI. EENTM: Reports: see HPI. Cardiovascular: Reports: chest pain. Respiratory: Reports: see HPI. GI: Reports: see HPI, abdominal pain. Genitourinary: Reports: see HPI. Comments ROS negative except the above. Past History Travel History Traveled to [place] past 21 day No Medical History Blood Transfusion Hx: Yes ([facility], 1928–1983 10/2015) Neurological: Hx DTs EENT: NONE Cardiovascular: hypertension (borderline) Respiratory: NONE Gastrointestinal: 12/14/2002: Hx remote lower esophageal ring, HH & food impaction Hepatic: fatty liver/EtOH hepatitis Renal: NONE Musculoskeletal: chronic back pain, disk herniation, degen joint disease, falls, fracture (clavicles B/L), R KNEE REPLACEMENT Psychiatric: alcohol dependence, anxiety, opioid dependence, substance abuse ( Oxycodone) Endocrine: osteopenia on prior Xrays Blood Disorders: anemia (macrocytic) Cancer(s): NONE 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 , Age 84; Cause: Lung cancer. FATHER ([employer]). Age 89. Psychosocial History Where Do You Live? Home Who Do You Live With? parent (father) Services at Home: None Primary Language: Wolof Smoking Status: Never Smoked ETOH Use: alcoholic Illicit Drug Use: denies illicit drug use (on rx Oxycodone) Living Will? no Power of Investment Executive/HCP? no Other Social History: Single. Lives with elderly father. No children. No cigarettes. No street drugs. On prescription Oxycodone. Alcoholic for years, drinking up until admission. Hx DTs. "8 drinks a week". 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 Chronic pain syndrome. Functional Ability ADLs Independent: dressing, eating, toileting, bathing. Ambulation: independent IADLs Independent: shopping, housework, finances, food prep, telephone, transportation , medication admin. Employment History Employment: Unemployed Exam & Diagnostic Data Last 24 Hrs of Vital Signs/I&O Vital Signs Date Time Temp Pulse Resp B/P Pulse O2 O2 Flow FiO2 Ox Delivery Rate 04/10 2130 96 162/91 04/10 1999 97.0 90 22 159/99 04/10 2000 95 Room Air 04/10 2000 97.0 90 22 150/90 95 Room Air 04/10 1800 98.0 95 18 153/87 04/10 1700 98.2 99 18 169/94 04/10 1600 97.9 98 18 150/92 04/10 1600 97.9 98 18 150/92 96 Room Air 04/10 1500 97.6 94 20 131/79 04/10 1400 98.2 96 18 148/85 04/10 1200 98.4 100 20 140/92 04/10 1100 98.2 120 20 134/94 04/10 1000 98.1 97 18 139/84 04/10 0800 98.9 98 18 110/60 / 0800 98.9 98 18 110/60 95 Room Air 04/10 0600 99.3 108 20 116/78 04/10 0400 126 32 119/67 04/10 0400 94 Nasal 4.0L Cannula 04/10 0314 100.4 04/10 0212 101.5 01/03 0200 128 24 90/55 04/10 0100 101.5 116 24 138/88 04/10 0000 130 20 147/83 04/09 2228 99.3 116 20 182/88 04/09 2228 100 Nasal 2.0L Cannula Intake & Output 04/10 1600 04/10 0800 04/10 0000 Intake Total 1121 1660 1320 Output Total 600 675 150 Balance 572 345 2719 Intake, IV 1121 1660 1320 Intake, Oral 0 0 Number 0 Bowel Movements Output, 75 150 Emesis Output, Urine 600 600 Patient 95.254 kg Weight Physical Exam General Appearance: alert, awake, anxious, moderate distress, thin Head: atraumatic, normal appearance Eyes: Bilateral: normal appearance, PERRL, EOMI, pale conjunctivae. Ears, Nose, Throat: normal pharynx, normal ENT inspection, hearing grossly normal Neck: normal inspection, supple Respiratory: chest non-tender, wheezing, decreased breath sounds bilaterally Cardiovascular: regular rate/rhythm, normal peripheral pulses Peripheral Pulses: 2+ radial (R), 2+ radial (L) Gastrointestinal: normal bowel sounds, soft, non-tender Extremities: normal inspection, normal capillary refill Last 48 Hrs of Labs/Jesus: Laboratory Tests 04/10/16 1630: CBC w Diff NO MAN DIFF REQ, RBC 2.40 L, MCV 108.4 H, MCH 37.2 H, RDW 14.9 H, MPV 8.1, Gran % 83.4 H, Lymphocytes % 7.9 L, Monocytes % 8.7, Eosinophils % 0, Basophils % 0 L, Absolute Granulocytes 7.5 H, Absolute Lymphocytes 0.7 L, Absolute Monocytes 0.8 H, Absolute Eosinophils 0, Absolute Basophils 0, PUBS MCHC 34.4 04/10/16 1150: Troponin I < 0.01, Lipase < 10 L 04/10/16 0532: Lactic Acid 1.4 04/10/16 0532: TSH 0.406, Free T4 1.54 04/10/16 0532: Anion Gap 11, Estimated GFR > 60, Glucose 145 H, Calcium 7.9 L, Phosphorus 2.6 , Magnesium 1.6, Total Bilirubin 1.6 H, AST 104 H, ALT 54, Troponin I 0.01, Albumin 2.9 L, CBC w Diff MAN DIFF ORDERED, RBC 2.51 L, MCV 107.7 H, MCH 37.2 H, RDW 14.8 H, MPV 8.4, Gran % 85.3 H, Lymphocytes % 4.8 L, Monocytes % 9.9 H, Eosinophils % 0, Basophils % 0 L, Absolute Granulocytes 7.5 H, Segmented Neutrophils 78 H, Band Neutrophils 11 H, Absolute Lymphocytes 0.4 L, Lymphocytes 7 L, Monocytes 4, Absolute Monocytes 0.9 H, Absolute Eosinophils 0 , Absolute Basophils 0, Nucleated RBCs 1 H, Platelet Estimate DECREASED, Polychromasia 1+, Hypochromic-Microcytic 1+, PUBS MCHC 34.5, SHAE Titer Pending, Anti-Nuclear Antibody Pending, Hepatitis A IgM Ab NONREACTIVE, Hep Bs Antigen NONREACTIVE, Hep B Core IgM Ab Conf NONREACTIVE, Hepatitis C Antibody NONREACTIVE, HIV 1&2 Ab Western Blot NONREACTIVE 04/10/16 0140: Lactic Acid 2.2 H 04/10/16 0030: Anion Gap 14, Estimated GFR > 60, Glucose 143 H, Calcium 8.2 L, Phosphorus 2.5 , Magnesium 0.9 *L, Total Bilirubin 1.8 H, AST 132 H, ALT 65, Troponin I < 0.01, Albumin 3.4 L, CBC w Diff MAN DIFF ORDERED, RBC 2.88 L, MCV 107.1 H, MCH 37.1 H, RDW 14.6 H, MPV 8.9, Gran % 86.0 H, Lymphocytes % 3.6 L, Monocytes % 10.4 H, Eosinophils % 0, Basophils % 0 L, Absolute Granulocytes 7.2 H, Absolute Lymphocytes 0.3 L, Absolute Monocytes 0.9 H, Absolute Eosinophils 0, Absolute Basophils 0, Platelet Estimate ADEQUATE, Polychromasia 1 +, Hypochromic-Microcytic 1+, PUBS MCHC 34.6 04/09/16 0719: Urine Opiates Screen > 4000.00 H, Methadone Screen 44, Barbiturate Screen < 60, Ur Phencyclidine Scrn < 6.00, Amphetamines Screen < 100, U Benzodiazepines Scrn < 85, Urine Cocaine Screen < 50, Urine Cannabis Screen < 5.00 04/09/16 2014: CBC w Diff NO MAN DIFF REQ, RBC 2.95 L, MCV 108.5 H, MCH 37.3 H, RDW 15.0 H, MPV 8.3, Gran % 82.6 H, Lymphocytes % 7.4 L, Monocytes % 9.5 H, Eosinophils % 0.1, Basophils % 0.4, Absolute Granulocytes 4.7, Absolute Lymphocytes 0.4 L, Absolute Monocytes 0.5, Absolute Eosinophils 0, Absolute Basophils 0, PUBS MCHC 34.4 04/09/16 1856: Anion Gap 13, Estimated GFR > 60, BUN/Creatinine Ratio 12.9, Glucose 113 H, Lactic Acid 2.6 H, Calcium 8.9, Magnesium 1.1 L, Total Bilirubin 1.5 H, AST 163 H, ALT 66, Alkaline Phosphatase 143 H, Troponin I < 0.01, Total Protein 7.1, Albumin 3.7, Globulin 3.4, Albumin/Globulin Ratio 1.1, Vitamin B12 526, Folate 14.0, PT 13.3 H, INR 1.27 H, APTT 38 H, CBC w Diff NO MAN DIFF REQ, RBC 3.06 L, MCV 107.9 H, MCH 37.3 H, RDW 14.6 H, MPV 8.4, Gran % 74.2, Lymphocytes % 15.0 L, Monocytes % 10.4 H, Eosinophils % 0.1, Basophils % 0.3, Absolute Granulocytes 4.1, Absolute Lymphocytes 0.8 L, Absolute Monocytes 0.6, Absolute Eosinophils 0, Absolute Basophils 0, PUBS MCHC 34.5, Serum Alcohol 65.0 Diagnostic Data CXR Results IMPRESSION: Stable examination. No pneumonia, pneumothorax or pleural effusion. There are low lung volumes. There are increased pulmonary vascular markings bilaterally. Other Results abdominal ultrasound Increased hepatic echogenicity suspicious for steatosis. Mildly prominent common bile duct without intrahepatic biliary ductal dilatation. Assessment/Plan Impression/Plan: He is 51-year-old man with past medical history of food impaction in esophagus in 2003 status post upper GI endoscopy for removal, Schatzki ring, hiatal hernia , past medical history of pancreatitis, chronic pain syndrome (right knee, back, left shoulder pain) on oxycodone and ibuprofen (takes 200 mg tablet 4 times a day for months) and alcohol abuse (drinks 3 times per week, each time 2-3 beers, drank 8 beers on Candy per pt) presented to ER with complaint of vomiting bright red blood. In ER he is found to have normal BP, tachycardic with HR of 116-130, had an episode of desatuartion around 89% and on 2L NC. He underwent upper EGD in ICU without any obivious signs of esophageal varices ( alcoholic) - there is a clot that was removed. Presence of linear gastritis. After the EGD - he is still having blood coming in very low volumes. He is febrile overnight with a temparature of 101.5. Recommendations: PLAN Hematemesis S/P choking food * Upper EGD in ICU found a clot in the lower esophagus with linear gastritis and a mi ring at 44cm. * Still vomiting small amounts of blood (minimal hematemesis), although decreased from the time of presentation * H&H at admission was 10/30 followed by 9.3/ today morning. * At 4pm H&H is 8.9/, repeated as patient continously had brown frothy liquid coming out. * He is very nauseous throughout the day - received 2 doses of Zofran and a dose of Tigan so far. * He is on Protonix drip * constantly complains of chest pain radiating to back, chest x ray/troponin are negative for any esophageal perforation/cardiac condition * histoy of chronic pain might have contributed to the pain in addition to constant retching. * His BP is very high during the day. * NPO with icechips for now as there is risk of aspiration. * started on D51/2NS @ 50ml/hr. Suspected aspiration pneumonia * Hematemesis followed by an episode of desaturation and febril ovetnight with a Tmax of 101.5 * On unasyn 3g Q6 * f/u cultures History of chronic alcohol abuse * Recently hospitalized in [place] for alcohol detoxification * On banana bag and CIWA protocol * Tachycardic with very high Blood pressure. * will monitor closely * Alert and oriented X3, but often says that he had some polyp in his neck that need to be removed. History of chronic pain syndrome secondary to multiple falls * On oxycodone 10mg Q4 at home * Placed on dilaudid 1mg Q4 PRN today - will change the dose depending on the requirement. DVT Prophylaxis * ALPS Code status * Full code Problem List: 1. Alcohol intoxication 2. Food impaction of esophagus 3. Lower esophageal ring 4. Hiatal hernia 5. Chronic pain syndrome Consult Acknowledgment - Thank you for your consult request. JESSEE SCHULTZ MD 04/10/16 1140: Assessment/Plan Other Findings/Comments: Jessee Lorenzo M.D. have examined this patient, reviewed available EMR data, personally reviewed images, discussed with resident/PA/MANAGER DRIVE, discussed management plan with housestaff and nursing staff, discussed managment plan all of healthcare providers, discussed management plan with patient and/or family, agreed with resident/PA/MANAGER DRIVE. The past history and parts of the chart have been autopopulated. TTS 40min Consult Acknowledgment - Thank you for your consult request.
--- NOTE | 2016-04-10 09:00 | NUR ---
0800: RECEIVED PT IN BED. ALERT, FORGETFUL WHEN HE FIRST WAKES UP THEN HE IS ORIENTED. ON RA, LUNGS CLEAR. DENIES SOB. NSR TO ST ON MONITOR. VSS. AFEBRILE. DENIES CHEST PAIN. ABDOMEN D/S. ABSENT BOWEL SOUNDS IN UPPER QUADRANTS, NORMOACTIVE BOWEL SOUNDS IN LOWER QUADRANTS. NPO AT THIS TIME FOR HEMOPTYSIS, AND ABDOMINAL ULTRA SOUND. VOIDING IN URINAL. SKIN INTACT, SCATTERED SCRATCHES. 3 IV'S INTACT. BANANA BAG, PROTONIX GTT AND POTASSIUM INFUSING AT THIS TIME. CIWA 4. PT REQUESTING PAIN MEDS AT THIS TIME, RECEIVED IV DILAUDID AN HOUR AGO, NOT DUE TILL 11AM, PT MADE AWARE. PT RESTING COMFORTABLY. ALPS IN PLACE. WILL MONITOR.
--- NOTE | 2016-04-10 10:32 | NUR ---
ABDOMINAL ULTRASOUND BEING DONE AT THIS TIME
--- NOTE | 2016-04-10 11:39 | NUR ---
PT CONTINUES TO BE IN A LOT OF PAIN, MOSTLY IN HIS BACK, IV DILAUDID GIVEN, IV ATIVAN GIVEN FOR CIWA OF 8, ZOFRAN GIVEN FOR CONSTANT VOMITING AND WRETCHING. EKG DONE BECAUSE PT WAS COMPLAINING OF BOUNDING HEART RATE AND CHEST PRESSURE, EKG SHOWN TO MD. IN TO ASSESS PT. THAO B/P AT THIS TIME 140/92
--- NOTE | 2016-04-10 11:59 | NUR ---
TROPONIN DRAWN AT THIS TIME. 1 TIME DOSE OF 1MG IV DILAUDID GIVEN PER EMAR. WILL MONITOR.
--- NOTE | 2016-04-10 12:20 | ULTRASOUND REPORT ---
EXAMINATION: US ABDOMEN LIMITED CLINICAL INFORMATION: Abnormal LFTs, alcohol abuse, question cirrhosis. COMPARISON: CT 10/28/2015 TECHNIQUE: Real-time imaging of the right upper quadrant abdominal viscera. FINDINGS: PANCREAS: Obscured by overlying bowel gas. LIVER: The liver demonstrates increased echogenicity suspicious for steatosis. No significant surface nodularity to suggest cirrhosis. No focal lesion or intrahepatic biliary duct dilatation identified. GALLBLADDER: The gallbladder is physiologically distended without evidence of stones, sludge, polyps, wall thickening or pericholecystic fluid. COMMON BILE DUCT: Mildly prominent in caliber measuring 0.7 cm in diameter. RIGHT KIDNEY: No hydronephrosis. No renal calculi or focal parenchymal lesions. The kidney measures 10.9 cm in maximum dimension. FREE FLUID: None visualized. IMPRESSION: Increased hepatic echogenicity suspicious for steatosis. Mildly prominent common bile duct without intrahepatic biliary ductal dilatation.
--- NOTE | 2016-04-10 12:55 | RADIOLOGY REPORT ---
EXAMINATION: XR PORTABLE CHEST CLINICAL INFORMATION: Vomiting blood. COMPARISON: Chest radiograph performed 04/10/2016 at 0 2600 hours. TECHNIQUE: Portable view of the chest was obtained. FINDINGS: The trachea remains in normal anatomic position. The cardiac silhouette is stable in size. There are increased pulmonary vascular markings bilaterally. No definite pneumonia. No pneumothorax or pleural effusion. There is a chronic nonunited fracture of the left clavicle. Chronic deformity of the left chest wall superolaterally. IMPRESSION: Stable examination. No pneumonia, pneumothorax or pleural effusion. There are low lung volumes. There are increased pulmonary vascular markings bilaterally.
--- NOTE | 2016-04-10 16:38 | NUR ---
REPEAT CBC DRAWN AT THIS TIME
[2016-04-10 16:51] LABS: ABSOLUTE BASOPHIL COUNT 0 /CUMM (0.0-0.2); ABSOLUTE EOSINOPHIL COUNT 0 /CUMM (0.0-0.7); ABSOLUTE MONOCYTE COUNT 0.8 /CUMM (0.10-0.60); EOSINOPHIL % 0 % (0-5); PLATELET COUNT 142 /CUMM (130-400)
[2016-04-10 16:54] LABS: ABSOLUTE GRANULOCYTE CT 7.5 /CUMM (1.4-6.5); ABSOLUTE LYMPH COUNT 0.7 /CUMM (1.2-3.4); BASOPHIL % 0 % (0.0-2.0); GRANULOCYTE % 83.4 % (42.2-75.2); MEAN CORPUSCULAR HGB 37.2 PG (27.0-31.0); MEAN CORPUSCULAR HGB CONC 34.4 G/DL (33.0-37.0); MEAN CORPUSCULAR VOLUME 108.4 FL (80.0-94.0); MEAN PLATELET VOLUME 8.1 FL (7.4-10.4); RBC DISTRIBUTION WIDTH 14.9 % (11.5-14.5)
[2016-04-10 23:14] LABS: ABSOLUTE BASOPHIL COUNT 0 /CUMM (0.0-0.2); ABSOLUTE EOSINOPHIL COUNT 0 /CUMM (0.0-0.7); ABSOLUTE GRANULOCYTE CT 5.7 /CUMM (1.4-6.5); ABSOLUTE LYMPH COUNT 0.9 /CUMM (1.2-3.4); ABSOLUTE MONOCYTE COUNT 0.6 /CUMM (0.10-0.60); BASOPHIL % 0.2 % (0.0-2.0); EOSINOPHIL % 0 % (0-5); HEMATOCRIT 25.1 % (42-52); MEAN CORPUSCULAR HGB 37.3 PG (27.0-31.0); MEAN CORPUSCULAR HGB CONC 34.5 G/DL (33.0-37.0); MEAN CORPUSCULAR VOLUME 108.1 FL (80.0-94.0); MEAN PLATELET VOLUME 8.4 FL (7.4-10.4); PLATELET COUNT 129 /CUMM (130-400); RBC DISTRIBUTION WIDTH 15.5 % (11.5-14.5); RED BLOOD CELL CT 2.32 /CUMM (4.70-6.10); WHITE BLOOD CELL COUNT 7.3 /CUMM (4.8-10.8)
[2016-04-11] VITALS (13 sets, daily range): BP systolic 134–172; BP diastolic 60–100
--- NOTE | 2016-04-11 00:10 | NUR ---
PT ALERT, ORIENTED TO SELF AND PLACE, SLIGHTLY OFF ON DATE BY 1 DAY AND DAY OF THE WEEK. FOLLOWS COMMANDS. CIWA-12 AT PRESENT-SEE EMAR FOR ATIVAN ADMINISTRATION. PT TREMOLOUS. C/O BACK PAIN-SEE EMAR FOR PAIN MED ADMINISTRATION. BREATH SOUNDS CLEAR WITH DIMINISHED BREATH SOUNDS AT BASES BILATERALLY. NO SOB OR RESP DISTRESS NOTED AT PRESENT. PT COUGHING UP MOD AMT OF BLOODY SECREATIONS. SEE FLOW SHEET FOR VS, 02 SATS, I/O'S. MONITOR SHOWS NSR, NO ECTOPY NOTED AT PRESENT. BP SLIGHTLY ELEVATED AT PRESENT. ABD SOFT, NONTENDER, NONDISTENDED, POSITIVE BOWEL SOUNDS. S/O NAUSEA-ZOFRAN GIVEN-SEE EMAR. VOIDING. SKIN INTACT-MULTIPLE CLOSED SCABS NOTED ARM, BACK, HEAD
[2016-04-11 05:39] LABS: ABSOLUTE BASOPHIL COUNT 0 /CUMM (0.0-0.2); ABSOLUTE EOSINOPHIL COUNT 0 /CUMM (0.0-0.7); ABSOLUTE GRANULOCYTE CT 5.2 /CUMM (1.4-6.5); ABSOLUTE MONOCYTE COUNT 0.6 /CUMM (0.10-0.60); BASOPHIL % 0.3 % (0.0-2.0); EOSINOPHIL % 0 % (0-5); GRANULOCYTE % 76.4 % (42.2-75.2); HEMATOCRIT 24.5 % (42-52); MEAN CORPUSCULAR HGB 37.7 PG (27.0-31.0); MEAN CORPUSCULAR HGB CONC 34.2 G/DL (33.0-37.0); MEAN CORPUSCULAR VOLUME 110.5 FL (80.0-94.0); MEAN PLATELET VOLUME 8.5 FL (7.4-10.4); PLATELET COUNT 121 /CUMM (130-400); RBC DISTRIBUTION WIDTH 15.4 % (11.5-14.5); RED BLOOD CELL CT 2.21 /CUMM (4.70-6.10); WHITE BLOOD CELL COUNT 6.8 /CUMM (4.8-10.8)
--- NOTE | 2016-04-11 06:59 | NUR ---
PT SLEPT ON AND OFF DURING THE NIGHT-SLEEPING MORE SOUNDLY SINCE 0400. C/O BACK PAIN-SEE EMAR FOR DILUADID DOSE TIMES. PT HAD 1 EPISODE AT 0345 OF ATTEMPTING TO GET OOB-EXPLANED TO PT WHY COULD NOT GET UP-CALMED WHEN CLEANED AND BED LINENS CHANGED. CIWA 5-12 FOR SHIFT-MEDICATED WITH ATIVAN IV TWICE PER CIWA SCALE PRN ATIVAN ORDER. TPS-SN-47-100'S FOR SHIFT, SBP-150-170'S FOR SHIFT. CONTINUES TO COUGH UP MOD AMT CLEAR BLOOD TINGED SECREATIONS. PROTONIX GTT AT 8MG/HR. ABD SOFT, NONTENDER, NONDISTENDED, POSITIVE BOWEL SOUNDS. C/O NAUSEA, BUT VOMITTING THOUGHOUT. PT DRY HEAVING INTERMITTENTLY OVERNIGHT. NO BM'S OVERNIGHT. SKIN INTACT
--- NOTE | 2016-04-11 07:44 | PN- Resident CRCU ---
ROSIBEL EDWARD,MITA 04/11/16 0744: Subjective HPI/CRCU Issues: He is 51-year-od man with past medical history of food impaction in esophagus in 2002 status post upper GI endoscopy for removal, Schatzki ring, hiatal hernia, past medical history of pancreatitis, chronic pain syndrome (right knee, back, left shoulder pain) on oxycodone and ibuprofen (takes 200 mg tablet 4 times a day for months) and alcohol abuse (drinks 3 times per week, each time 2-3 beers, drank 8 beers on Candy per pt) presented to ER with complaint of vomiting bright red blood. In ER he is found to have normal BP, tachycardic with HR of 116-130, had an episode of desatuartion around 89% and on 2L NC. He underwent upper EGD in ICU without any obivious signs of esophageal varices ( alcoholic) - there is a clot that was removed. Presence of linear gastritis. After the EGD - he is still having blood coming in very low volumes. He is stable overnight without any acute events. 24 Hour Events: I saw and examined the patient today morning. He is doing much better than yesterday. Started on clear liquid diet, as not nauseous. He had a bowel movment yesterday which was brown in colour. Objective Vital Signs & I&O Last 8 Hrs of Vitals and I&O: Intake & Output 04/11 1600 Intake Total 660 Output Total 450 Balance 210 Intake, IV 660 Output, Urine 450 VS stable overnight He remained on protonix drip and on D51/2 NS @50ml/hr. Exam General Appearance: alert, awake, comfortable, mild distress Head: atraumatic, normal appearance Ears, Nose, Throat: normal pharynx, normal ENT inspection, hearing grossly normal Neck: normal inspection, supple, full range of motion Respiratory: normal breath sounds, chest non-tender, no respiratory distress Cardiovascular: regular rate/rhythm, normal peripheral pulses Gastrointestinal: normal bowel sounds, soft, non-tender Extremities: normal inspection, normal capillary refill, normal range of motion Nutrition Nutrition: clear liquid diet Current Medications: Current Medications Sig/Liat Start time Last Medication Dose Route Stop Time Status Admin Ampicillin Sodium/ 3,000 MG Q6H 04/10 0400 AC 04/11 Sulbactam Sodium IV 1626 Sodium Chloride 100 ML Cyanocobalamin/ 1 BAG DAILY 04/10 0230 AC 04/11 Thiamine/Pyridoxine IV 1034 Sodium Chloride 1,000 ML Dextrose/Sodium 1,000 ML Q20H 04/10 2000 AC 04/10 Chloride IV 2017 Hydromorphone HCl 2 MG Q4P PRN 04/11 1000 AC 04/11 IV 1859 Hydromorphone HCl 1 MG Q4P PRN 04/10 1200 DC 04/11 IV 0631 Lorazepam 0 Q1P PRN 04/09 2200 AC 04/11 IV 0216 Ondansetron HCl 4 MG .STK-MED ONE 04/11 0931 DC IM 04/11 0932 Ondansetron HCl 4 MG Q6P PRN 04/10 0100 AC 04/11 IV 0936 Pantoprazole Sodium 40 MG Q5H 04/09 1900 AC 04/11 Sodium Chloride 100 ML IV 1626 Potassium Chloride 10 MEQ ONCE ONE 04/11 0730 DC 04/11 IV 04/11 0731 0758 Potassium Chloride 10 MEQ ONCE ONE 04/11 0715 DC 04/11 IV 04/11 0716 0716 Potassium Chloride 10 MEQ ONCE ONE 04/11 0500 DC 04/11 IV 04/11 0501 0527 Potassium Phosphate 15 mMol ONE ONE 04/11 0815 DC 04/11 Sodium Chloride 250 ML IV 04/11 1218 1034 Trimethobenzamide HCl 200 MG TID PRN 04/10 1300 AC IM Antibiotics Antibiotic: unasyn Day #: 3 IV/PO? IV Impression/Plan Impression/Problem List Impression: He is 51-year-old man with past medical history of food impaction in esophagus in 2002 status post upper GI endoscopy for removal, Schatzki ring, hiatal hernia , past medical history of pancreatitis, chronic pain syndrome (right knee, back, left shoulder pain) on oxycodone and ibuprofen (takes 200 mg tablet 4 times a day for months) and alcohol abuse (drinks 3 times per week, each time 2-3 beers, drank 8 beers on per pt) presented to ER with complaint of vomiting bright red blood. In ER he is found to have normal BP, tachycardic with HR of 116-130, had an episode of desatuartion around 89% and on 2L NC. He underwent upper EGD in ICU without any obivious signs of esophageal varices ( alcoholic) - there is a clot that was removed. Presence of linear gastritis. After the EGD - he is still having blood coming in very low volumes. He remained stable overnight although he had lot of frothy blood tinged vomitus through out the day time. PLAN Hematemesis S/P choking food * Upper EGD in ICU found a clot in the lower esophagus with linear gastritis and a mi ring at 44cm. * Still vomiting small amounts of blood (minimal hematemesis) yesterday, although decreased from the time of presentation. Today he is stable. * H&H at admission was 02/04 followed by 9.08/01 today morning. * He is on Protonix drip * constantly complains of chest pain radiating to back, chest x ray/troponin are negative for any esophageal perforation/cardiac conditio, .histoy of chronic pain might have contributed to the pain in addition to constant retching. * Kept NPO to night in view of repeat EGD tomorrow. * started on clear liquid diet. Suspected aspiration pneumonia * Hematemesis followed by an episode of desaturation and febril ovetnight with a Tmax of 101.5 * On unasyn 3g Q6 * f/u cultures History of chronic alcohol abuse * Recently hospitalized in [place] for alcohol detoxification * On banana bag and CIWA protocol * Tachycardic with very high Blood pressure - stablized today. * Alert and oriented X3, but often says that he had some polyp in his neck that need to be removed. History of chronic pain syndrome secondary to multiple falls * On oxycodone 10mg Q4 at home * Placed on dilaudid 1mg Q4 PRN today - will change the dose depending on the requirement. Problem List: 1. Food impaction of esophagus 2. Dysphagia 3. Lower esophageal ring 4. Hiatal hernia 5. Alcohol abuse 6. Alcoholic hepatitis Pain Ratin Tomorrow's Labs & Rationales: ICU bundle cbc Plan DVT/Prophylaxis: mechanical Code Status: Full Code JESSEE SCHULTZ MD 04/11/16 1118: Attending MD Review Statement Attending Sign Off Attending Cosign Statement: I have: examined this patient, reviewed aval EMR data, personally reviewd images, discussd w/resident/PA/LICENSED LOAN OFFICER ASSISTANT, discussed mgmt plan w/wendi, discussed mgmt plan w/CM, discussed mgmt plan w/pt, agreed w/resident/PA/LICENSED LOAN OFFICER ASSISTANT, amended to note. Other Findings: Jessee Lorenzo M.D. have examined this patient, reviewed available EMR data, personally reviewed images, discussed with resident/PA/LICENSED LOAN OFFICER ASSISTANT, discussed management plan with housestaff and nursing staff, discussed managment plan all of healthcare providers, discussed management plan with patient and/or family, agreed with resident/PA/LICENSED LOAN OFFICER ASSISTANT. The past history and parts of the chart have been autopopulated. TTS 35 min Acute blood loss anemia F/u GI recommendations pain control keep in icu in anticipation of endoscopy
--- NOTE | 2016-04-11 08:24 | PN- Gastroenterology ---
Assessment/Plan Assessment/Recommendations: 51 y/o male, borderline hypertensive, nondiabetic, history of intermittent alcohol abuse since high school, more so over the past 4 days TALENT REP, last drinking earlier today, past history of DTs, chronic pain syndrome on Oxycodone per Dr. Lee, with history of multiple falls (right TKR, post 4 previous right knee surgeries, multiple bilateral collarbone fractures, chronic back pain, DJD, herniated disc, shoulder pain), followed by Dr. Herring for primary care, claiming to average "8 drinks of EtOH weekly," with remote history of lower esophageal ring and food impaction. This required 12/14/2002: EGD x 2 same day (Dr. Shaq Umana/Dr. Shameka Gillette)- food impaction removed, lower esophageal ring, hiatal hernia. No varices or portal gastropathy noted at that time. The patient was put on a short course of Carafate and Nexium then. He was not compliant with suggested follow-up for semi-elective barium swallow & esophageal dilatation. He has not seen a slot manager since. He has had rare intermittent dysphagia to solids since, which passed spontaneously. He normally has no difficulty swallowing liquids or pills. He has not had a baseline colonoscopy. There is no family history of GI disease, GI malignancy, or inherited liver disease. He denies any history of viral hepatitis, tattoos, or known history of HIV. He denies using any street drugs or IVDA, aside from the prescribed Oxycodone. He denies cigarette use. The patient was eating a ham and cheese sandwich at 4 PM 04/09/2016, followed by dysphagia, with a feeling of impaction in the mid chest. This was followed by mild odynophagia, and questionable mid-pleuritic chest pain, without any hemoptysis. The patient had clear vomiting, without bile, followed by retching, followed by vomiting bright red blood. He had a brown bowel movement earlier today. There is no history of rectal bleeding or melena. He drove himself to the [facility] 04/09/2016, arriving at 6:44 PM. He had some rags that were covered with blood. Upon presentation, BP 144/97, P- 112, R- 20, T- 97.1, O2 sat RA 99%. He continued to have a sensation of food stuck, with vomiting of blood. He denies any history of peptic ulcer disease. He denies any aspirin use, but takes Ibuprofen 4 tabs daily for years, for his chronic aches and pains. He claims he was transfused at [facility] in 10/2015, where he went for a fractured left clavicle, but did not have surgery for this. The patient received Zofran, Protonix 80 mg IV bolus followed by Protonix drip, IV saline, Ativan, 1 amp of glucagon and SL NTG x 1, as his BP was stable, in order to try to get the food bolus to move. He did not get relief from this. The patient had low normal platelets, a borderline INR, and LFTs suggestive of alcoholic hepatitis, with [EtOH] 65, upon presentation (*see labs). Previous imaging studies did not show a cirrhotic liver. The patient desaturated slightly 04/09/2016 at 7:56 PM (O2 sat RA 89%), was put on O2 2L nc. *Admission chest x-ray did not show any evidence of aspiration, but it might be too soon to tell. *I advised the ER to give the patient IV Unasyn 3g (to cover his lungs) and 1 dose of empiric IV Ceftriaxone 1g (in case esophageal banding is needed). The patient denies any jaundice, dark urine, light stool, pruritus, or confusion. He admits to rare symptoms of GERD. He denies any fevers, chills, shortness of breath, early satiety, abdominal pain, diarrhea, constipation, obstipation, or tenesmus. He denies any symptoms of UTI or URI. He denies any significant weight loss or change in appetite. He is on a water pill and potassium for periodic lower extremity edema. He denies any increased abdominal girth. He denies any known history of cirrhosis. 10/28/2015: *Previous ER labs- WBC 8.4, H/H 8.6/24.9, elevated MCV 109.4, elevated RDW 16.7, PLT 121, PT 15.9, INR 1.51, PTT 37, glucose 138, BUN/Cr 3/0.5 , sodium 134, potassium 4.3, bicarbonate 22, AG 16, albumin 2.9, globulin 3.3, TBil 6.4, DBil 4.5, alkaline phosphatase 244, AST 309, ALT 69, A/L 115/315, troponin < 0.01. 04/09/2016: *Admission labs 6:56 p.m.- CBC 5.6, H/H 11.4/33, MCV 107.9, RDW 14.6 , PLT 152, PT 13.3, INR 1.27, PTT 38, glucose 113, BUN/Cr 9/0.7, GFR > 60, sodium 134, potassium 3.3, bicarbonate 29, AG 13, magnesium 1.1, calcium 8.9, albumin 3.7, globulin 3.4, TBil 1.5 (without fracs), alk phos 143, AST 163, ALT 66, [EtOH] 65, elevated lactate 2.6. 04/09/2016: *Discriminant function by Maddrey formula- 7.48. 04/09/2016: *Repeat CBC 8:14 p.m.- WBC 5.7, H/H 11.0/32.0, MCV 108.5, RDW 15, PLT 136 10/28/2015: CT ABDOMEN AND PELVIS WITH IV CONTRAST (per ER)- 1. Edema around contracted gallbladder suggesting acute cholecystitis. No bile duct dilatation. CBD 3 mm. Normal pancreas. Normal spleen. 2. Hepatomegaly with diffuse fatty infiltration of liver. No focal liver lesion. No mention of ascites. 3. DJD. 04/09/2016: EKG- ST @ 100, LAE, LAD, without acute ischemic changes. 04/09/2016: XR PORTABLE CHEST- No evidence of aspiration pneumonia. No effusion or CHF. Lungs clear. *The patient is having an upper GI bleed that started in the setting of a food impaction. He has a remote history of a lower esophageal ring in 12/2002, for which he was not compliant with suggested semi-elective esophageal dilatation. There is a substantial history of alcohol abuse. Recent 10/28/2015: CT AP with contrast showed an enlarged fatty liver without evidence of cirrhosis or portal collaterals. He has a significant history of Ibuprofen use. He has low normal platelets with a borderline INR. His albumin:globulin ratio is normal. He has a negative discriminant function (7.48) by the Maddrey formula regarding his EtOH hepatitis, but he would not be a candidate for Prednisolone or Trental anyway, in view of his active upper GI bleeding. I feel that an IV Protonix drip is sufficient on admission, and will defer Octreotide, unless varices are seen on EGD. *Vast differential diagnosis for the above includes esophageal ulceration in the setting of food impaction, Tsering-Garsia tear post retching, peptic ulcer disease and/or NSAID gastropathy, etc., with a less likely possibility of variceal bleeding. Doubt neoplasm. Again, there has been no documented cirrhosis in the past, and the bleeding occurred after the food impaction. Other considerations regarding the dysphagia, aside from the esophageal ring, could include stricture vs. EOE > esophageal dysmotility, by history. The oxygen desaturation is noted despite the clear chest x-ray, and it is possible the patient could have aspirated preop. 04/09/2016: EGD WITH FOREIGN BODY REMOVAL- 1. Clot partially cleared from lower 1/3 of esophagus, with a portion of the lower esophageal mucosa obscured. No definite esophageal varices seen. No gastric varices. No portal gastropathy. 2. Food cleared from lower esophagus, both in an antegrade and retrograde fashion, with patent esophageal lumen. 3. Suggestion of lower esophageal ring at 44 cm. 4. Small hiatal hernia pouch, without any Raheem erosions. No definite MWT seen. 5. Proximal linear gastritis. Biopsies deferred. 6. No evidence of peptic ulcer disease. *As of 04/10/2016, the patient's blood pressure is normal. He remains tachycardic. He spiked to 101.5 with O2 sat 4L 94%. Clinically, he aspirated in the ER, as he had a low-grade temp and drop in his O2 sat, prior to the EGD. He remains extubated. His H/H have dropped after IVF & equilibration, as expected, as his admission H/H were probably falsely elevated based on his previous CBC, due to initial hemoconcentration, superimposed on the UGI bleed. Unasyn has been continued to cover probable aspiration pneumonia, although repeat CXR post EGD without infiltrate. Ativan has been added. 04/10/2016: CXR- Low lung volumes with bibasilar atelectasis. No acute pulmonary findings. Gaseous distention of the stomach, post EGD. Known fractured left clavicle. 04/09/2016: *B12 526, folate 14.0. 04/09/2016: *U Tox- OP/MS > 4000. 04/10/2016: *troponin- neg x 3; lactate normalized 1.4, PO4 2.6. 04/10/2016: *Hep A Ab, Hep Bs Ag, Hep B core Ab, Hep C Ab- all negative; HIV- negative. 04/10/2016: *normal FT4 1.54, normal TSH 0.406. 04/10/2016: *SHAE- pending. 04/10/2016: *BC X 2- pending. 04/10/2016: *UC- pending. *As of 04/11/2016, the patient remains hemodynamically stable. He is afebrile. His oxygen saturations are 95% on room air. He remains on empiric Unasyn for presumed aspiration pneumonia although multiple chest x-rays negative. He had some difficulty with ice chips experiencing dysphagia, but I just gave him some water, which he tolerated uneventfully, except for some mild odynophagia on subsequent swallows. There has been no more active hematemesis. His able to clear his secretions. He has vague chest pain in the setting of chronic pain syndrome. There is reproduced by touch, with mild chest wall tenderness but no crepitus. There is no definite pleuritic pain or hemoptysis. Numerous troponins, CXR and EKGs have been essentially negative for any acute process. There is no abdominal pain. He remains on an IV Protonix drip. He is receiving antiemetics. His last bowel movement was 04/09/2016- brown stool. His Hgb has dropped somewhat without the need for transfusion. His BUN has declined. There currently is no active recurrent UGI bleed. CIWA have ranged from 5-10. He is less agitated on Ativan as needed. He is no longer lethargic A & OX3. 2016: RUQ sono- fatty liver, without acute pathology. SUGGEST: 8Maintain in ICU. *Clears po as tolerated with aspiration precautions. *The patient should be in the upright position when drinking. *NPO after 11:59 p.m. on 04/11/2016, for tentative repeat EGD by the bedside in the ICU on 04/12/2016, depending on clinical course, to better clear the lower 1/3 of the esophagus. ( Clots from NSAID use/EtOH, etc were "plugged up" by food in the lower esophagus) . *Informed consent for repeat EGD was obtained from the patient after careful explanation of the risks and benefits, including the need for probable prophylactic reintubation. Gentle IVF with NS. *Replete electrolytes (i.e.- K+ /PO4-/Mg2+). *Continue IV Protonix drip at 8 mg/hour. *No need for Octreotide at present, as no definite varices seen. *Watch magnesium levels on PPI. T&C 4u PRBC. Serial CBC Q6h for now. Keep Hgb > 7 (no need to transfx at present). Strict I's and O's. Follow-up INR, lytes & LFTs. Supplemental O2. *May need gentle restraints for EtOH withdrawal. *Follow up cultures. Continue IV Unasyn to cover possible aspiration (1 dose of Ceftriaxone was given on admission preop ). *CXR x 2- negative, but watch for impending aspiration PNA. *DT precautions. *Serial CIWA. *Ativan as needed. *Anti-emetics. *Continue thiamine, folate, multivitamin via banana bag. *No NSAIDs. *Await 04/10/2016: SHAE. DVT prophylaxis with mechanical ALPS. *His issue of dysphagia/lower esophageal ring will have to be reassessed as an outpatient, perhaps with a barium swallow and semi-elective EGD with dilatation, after the issue of UGI bleeding is addressed. *He also is in need of an outpatient baseline colonoscopy for screening purposes. The above findings and recommendations were again discussed with the medical house staff & previously with Dr. Murray. Further recommendations to follow, depending on clinical course. 1/2 hour of ICU care was spent on the patient. Problem List: 1. Dysphagia 2. Food impaction of esophagus 3. Upper GI bleed 4. Lower esophageal ring 5. Hiatal hernia 6. Alcohol abuse 7. Alcohol withdrawal syndrome 8. Alcoholic hepatitis 9. Fatty liver 10. Macrocytic anemia 11. NSAIDs adverse reaction 12. Chronic pain syndrome Subjective Subjective: As of 04/11/2016, the patient remains hemodynamically stable. He is afebrile. His oxygen saturations are 95% on room air. He remains on empiric Unasyn for presumed aspiration pneumonia although multiple chest x-rays negative. He had some difficulty with ice chips experiencing dysphagia, but I just gave him some water, which he tolerated uneventfully, except for some mild odynophagia on subsequent swallows. There has been no more active hematemesis. His able to clear his secretions. He has vague chest pain in the setting of chronic pain syndrome. There is reproduced by touch, with mild chest wall tenderness but no crepitus. There is no definite pleuritic pain or hemoptysis. Numerous troponins, CXR and EKGs have been essentially negative for any acute process. There is no abdominal pain. He remains on an IV Protonix drip. He is receiving antiemetics. His last bowel movement was 04/09/2016- brown stool. His Hgb has dropped somewhat without the need for transfusion. His BUN has declined. There currently is no active recurrent UGI bleed. CIWA have ranged from 5-10. He is less agitated on Ativan as needed. He is no longer lethargic A & OX3. 2016: RUQ sono- fatty liver, without acute pathology. Review of Systems: Full 14 point review of systems otherwise noncontributory, and as above. Review of Systems Constitutional: Reports: fever- resolved. Denies: chills, diaphoresis, malaise, weakness, unexplained weight loss. EENTM: Denies: blurred vision, double vision, visual changes, eye pain, eye drainage, eye tearing, icterus, ear discharge, ear pain, ear redness, hearing changes, nasal congestion, epistaxis, nasal pain, throat pain, throat swelling, mouth pain, tooth pain. Cardiovascular: Reports: chest pain (mild mid-pleuritic post FB)- improved; reproducible by touch, without crepitus. Denies: edema, orthopena, palpitations, peripheral edema, syncope. Respiratory: Denies: cough, hemoptysis, orthopnea, short of breath, sputum production, stridor, wheezing. GI: Reports: vomiting (hematemesis post FB- improved; dysphagia- improving). Denies: abdominal pain, bloating, constipation, diarrhea, distention, bowel incontinence, melena, nausea, bloody stool, changes in stool, steatorrhea. Genitourinary: Denies: discharge, dysuria, frequency, hematuria, hesitation, nocturia, pain, urgency. Musculoskeletal: Reports: back pain, joint pain (*chronic pain; fxd clavicle). Denies: gout, joint swelling, muscle pain, muscle stiffness, neck pain. Skin: Denies: cysts, change in skin color, change in hair/nails, dryness, erythema, jaundice, lesions, lymphangitis, lumps, moles, rash. Neurological/Psychological: Reports: anxiety, tremors, withdrawal. Denies: ataxia, cognitive dysfunction, confusion, depressed, dementia, emotional problems, headache, numbness, paresthesia, pre-existing deficit, petit mal seizures, tingling, tonic-clonic seizures, unable to move lower ext, unable to move upper ext, weakness. Hematologic/Endocrine: Denies: bruising, bleeding, polyuria, polydipsia. Immunologic/Allergic: Denies: splenectomy, HIV/AIDS, lymphadenopathy. All Other Systems: Reviewed and Negative Objective Vital Signs and I&Os Vital Signs Date Time Temp Pulse Resp B/P Pulse O2 O2 Flow FiO2 Ox Delivery Rate 04/11 0800 98.3 82 18 140/80 04/11 0800 95 Room Air 04/11 0800 98.3 82 18 140/80 94 Room Air 04/11 0600 90 21 153/94 04/11 0400 98.5 105 17 154/93 04/11 0400 95 Room Air Room Air 04/11 0200 94 15 169/94 04/11 0100 95 22 172/100 / 0000 99.1 97 25 164/87 04 0000 95 Room Air Room Air 04/11 0000 99.1 97 97 164/87 95 Room Air Room Air 04/10 2200 102 13 154/91 04/10 2130 96 162/91 04/10 2000 97.0 90 22 159/99 / 2000 95 Room Air 04/10 2000 97.0 90 22 150/90 95 Room Air 04/10 1800 98.0 95 18 153/87 03 1700 98.2 99 18 169/94 03 1600 97.9 98 18 150/92 04/10 1600 97.9 98 18 150/92 96 Room Air 04/10 1500 97.6 94 20 131/79 /03 1400 98.2 96 18 148/85 /03 1200 98.4 100 20 140/92 04/10 1100 98.2 120 20 134/94 03 1000 98.1 97 18 139/84 Intake & Output 01/04 1600 01/04 0400 04/10 1600 04/10 0400 04/09 1600 04/09 0400 Intake Total 208 146 6893 1320 Output Total 709 818 0857 150 Balance 843 314 7375 1170 Intake, IV 396 082 1337 1320 Intake, Oral 0 0 0 Number 0 0 0 Bowel Movements Output, 75 150 Emesis Output, Urine 901 281 2724 Patient 210 lb Weight Physical Exam: Chronically ill-appearing, slightly malnourished male, less anxious, in no apparent distress. No longer vomiting clots. Sclera anicteric. Conjunctiva slightly pale. Oropharynx clear. No oral thrush. No aphthous ulcers. No stridor. No head and neck or chest wall crepitus. Mild mid-CWT (in the setting of chronic pain syndrome). There is no adenopathy, thyromegaly, or JVD. Slightly deformed left clavicle. No peripheral stigmata of inflammatory bowel disease or chronic liver disease on exam, aside from mild gynecomastia B/L, without masses or discharge. There are no spiders on the anterior chest wall. No CVA tenderness. Lungs: clear to A&P, with slight decreased breath sounds at the bases B/L. No wheezing, rales, rhonchi, or rub. Heart exam: regular rate rhythm, S1 and S2, without any murmur. Abdominal exam: normal bowel sounds, soft belly, nontender, without guarding or rebound. No mass. Enlarged liver, approximately 20 cm by percussion. Negative Garcia sign. No splenomegaly. No fluid shift. No pulsatile mass. Digital rectal exam: refused by patient (brown stool on admission, expect subsequent melena). Extremities: without C, C, or E. No palpable cords. No Dupuytren's contractures. No palmar erythema. Distal pulses 2+ bilaterally. DTRs 2+ bilaterally. Left handed. CN II-XII intact. Alert and oriented x 3. No longer lethargic. Less agitated, on Ativan. No tremor. No asterixis. Current Medications: Current Medications Sig/Liat Start time Last Medication Dose Route Stop Time Status Admin Ampicillin Sodium/ 3,000 MG Q6H 04/10 040 AC 04/11 Sulbactam Sodium IV 0419 Sodium Chloride 100 ML Cyanocobalamin/ 1 BAG DAILY 04/10 0230 AC 04/10 Thiamine/Pyridoxine IV 0532 Sodium Chloride 1,000 ML Dextrose/Sodium 1,000 ML Q20H 04/10 2000 AC 04/10 Chloride IV 2017 Hydromorphone HCl 1 MG ONCE ONE 04/10 1200 DC 04/10 IV 04/10 1201 1158 Hydromorphone HCl 1 MG Q4P PRN 04/10 1200 AC 04/11 IV 0631 Hydromorphone HCl 2 MG .STK-MED ONE 04/10 1146 DC IV 04/10 1147 Hydromorphone HCl 0.6 MG Q4P PRN 04/10 0815 DC 04/10 IV 1049 Lorazepam 0 Q1P PRN 04/09 2200 AC 04/11 IV 0216 Magnesium Sulfate 1 GM ONCE ONE 04/10 0630 DC 04/10 Dextrose/Water 100 ML IV 04/10 1029 0640 Ondansetron HCl 4 MG Q6P PRN 04/10 0100 AC 04/10 IV 2346 Pantoprazole Sodium 40 MG Q5H 04/09 1900 AC 04/11 Sodium Chloride 100 ML IV 0716 Potassium Chloride 10 MEQ ONCE ONE 04/11 0730 DC 04/11 IV 04/11 0731 0758 Potassium Chloride 10 MEQ ONCE ONE 04/11 0715 DC 04/11 IV 04/11 0716 0716 Potassium Chloride 10 MEQ ONCE ONE 04/11 0500 DC 04/11 IV 04/11 0501 0527 Potassium Chloride 10 MEQ .STK-MED ONE 04/10 1146 DC IV 04/10 1147 Potassium Phosphate 15 mMol ONE ONE 04/11 0815 AC Sodium Chloride 250 ML IV 04/11 1218 Sodium Chloride 1,000 ML Q20H 04/10 1330 DC IV Trimethobenzamide HCl 200 MG TID PRN 04/10 1300 AC IM Results Pertinent Lab Results: Laboratory Tests 04/11 04/10 0402 2255 Chemistry Sodium (137 - 145 mmol/L) 140 138 Potassium (3.5 - 5.1 mmol/L) 3.3 L 3.3 L Chloride (98 - 107 mmol/L) 102 101 Carbon Dioxide (22 - 30 mmol/L) 27 28 Anion Gap (5 - 16) 10 10 BUN (9 - 20 mg/dL) 10 11 Creatinine (0.7 - 1.2 mg/dL) 0.6 L 0.6 L Estimated GFR (>60 ml/min) > 60 > 60 BUN/Creatinine Ratio (7 - 25 %) 18.3 Glucose (65 - 99 mg/dL) 117 H Calcium (8.4 - 10.2 mg/dL) 8.0 L Phosphorus (2.5 - 4.5 mg/dL) 1.5 L Magnesium (1.6 - 2.3 mg/dL) 2.0 2.0 Total Bilirubin (0.2 - 1.3 mg/dL) 1.4 H AST (17 - 59 U/L) 67 H ALT (21 - 72 U/L) 46 Albumin (3.5 - 5.0 g/dL) 2.8 L Hematology CBC w Diff NO MAN DIFF REQ NO MAN DIFF REQ WBC (4.8 - 10.8 /CUMM) 6.8 7.3 RBC (4.70 - 6.10 /CUMM) 2.21 L 2.32 L Hgb (14.0 - 18.0 G/DL) 8.4 L 8.6 L Hct (42 - 52 %) 24.5 L 25.1 L MCV (80.0 - 94.0 FL) 110.5 H 108.1 H MCH (27.0 - 31.0 PG) 37.7 H 37.3 H RDW (11.5 - 14.5 %) 15.4 H 15.5 H Plt Count (130 - 400 /CUMM) 121 L 129 L MPV (7.4 - 10.4 FL) 8.5 8.4 Gran % (42.2 - 75.2 %) 76.4 H 79.0 H Lymphocytes % (20.5 - 51.1 %) 14.4 L 12.8 L Monocytes % (1.7 - 9.3 %) 8.9 8.0 Eosinophils % (0 - 5 %) 0 0 Basophils % (0.0 - 2.0 %) 0.3 0.2 Absolute Granulocytes (1.4 - 6.5 /CUMM) 5.2 5.7 Absolute Lymphocytes (1.2 - 3.4 /CUMM) 1.0 L 0.9 L Absolute Monocytes (0.10 - 0.60 /CUMM) 0.6 0.6 Absolute Eosinophils (0.0 - 0.7 /CUMM) 0 0 Absolute Basophils (0.0 - 0.2 /CUMM) 0 0 PUBS MCHC (33.0 - 37.0 G/DL) 34.2 34.5 04/1003 04/10 04/10 1630 1150 0532 0532 Chemistry Lactic Acid (0.7 - 2.1 mmol/L) 1.4 Troponin I (<0.11 ng/ml) < 0.01 Lipase (23 - 300 U/L) < 10 L TSH (0.270 - 4.200 uIU/mL) 0.406 Free T4 (0.64 - 1.79 ng/dL) 1.54 Hematology CBC w Diff NO MAN DIFF REQ WBC (4.8 - 10.8 /CUMM) 9.0 RBC (4.70 - 6.10 /CUMM) 2.40 L Hgb (14.0 - 18.0 G/DL) 8.9 L Hct (42 - 52 %) 26.0 L MCV (80.0 - 94.0 FL) 108.4 H MCH (27.0 - 31.0 PG) 37.2 H RDW (11.5 - 14.5 %) 14.9 H Plt Count (130 - 400 /CUMM) 142 MPV (7.4 - 10.4 FL) 8.1 Gran % (42.2 - 75.2 %) 83.4 H Lymphocytes % (20.5 - 51.1 %) 7.9 L Monocytes % (1.7 - 9.3 %) 8.7 Eosinophils % (0 - 5 %) 0 Basophils % (0.0 - 2.0 %) 0 L Absolute Granulocytes (1.4 - 6.5 /CUMM) 7.5 H Absolute Lymphocytes (1.2 - 3.4 /CUMM) 0.7 L Absolute Monocytes (0.10 - 0.60 /CUMM) 0.8 H Absolute Eosinophils (0.0 - 0.7 /CUMM) 0 Absolute Basophils (0.0 - 0.2 /CUMM) 0 PUBS MCHC (33.0 - 37.0 G/DL) 34.4 /04/10 0532 0140 Chemistry Sodium (137 - 145 mmol/L) 136 L Potassium (3.5 - 5.1 mmol/L) 3.1 L Chloride (98 - 107 mmol/L) 97 L Carbon Dioxide (22 - 30 mmol/L) 28 Anion Gap (5 - 16) 11 BUN (9 - 20 mg/dL) 14 Creatinine (0.7 - 1.2 mg/dL) 0.6 L Estimated GFR (>60 ml/min) > 60 Glucose (65 - 99 mg/dL) 145 H Lactic Acid (0.7 - 2.1 mmol/L) 2.2 H Calcium (8.4 - 10.2 mg/dL) 7.9 L Phosphorus (2.5 - 4.5 mg/dL) 2.6 Magnesium (1.6 - 2.3 mg/dL) 1.6 Total Bilirubin (0.2 - 1.3 mg/dL) 1.6 H AST (17 - 59 U/L) 104 H ALT (21 - 72 U/L) 54 Troponin I (<0.11 ng/ml) 0.01 Albumin (3.5 - 5.0 g/dL) 2.9 L Hematology CBC w Diff MAN DIFF ORDERED WBC (4.8 - 10.8 /CUMM) 8.7 RBC (4.70 - 6.10 /CUMM) 2.51 L Hgb (14.0 - 18.0 G/DL) 9.3 L Hct (42 - 52 %) 27.0 L MCV (80.0 - 94.0 FL) 107.7 H MCH (27.0 - 31.0 PG) 37.2 H RDW (11.5 - 14.5 %) 14.8 H Plt Count (130 - 400 /CUMM) 138 MPV (7.4 - 10.4 FL) 8.4 Gran % (42.2 - 75.2 %) 85.3 H Lymphocytes % (20.5 - 51.1 %) 4.8 L Monocytes % (1.7 - 9.3 %) 9.9 H Eosinophils % (0 - 5 %) 0 Basophils % (0.0 - 2.0 %) 0 L Absolute Granulocytes (1.4 - 6.5 /CUMM) 7.5 H Segmented Neutrophils (42.2 - 75.2 %) 78 H Band Neutrophils (0.0 - 5.0 %) 11 H Absolute Lymphocytes (1.2 - 3.4 /CUMM) 0.4 L Lymphocytes (20.5 - 51.1 %) 7 L Monocytes (1.7 - 9.3 %) 4 Absolute Monocytes (0.10 - 0.60 /CUMM) 0.9 H Absolute Eosinophils (0.0 - 0.7 /CUMM) 0 Absolute Basophils (0.0 - 0.2 /CUMM) 0 Nucleated RBCs (0.0 - 0.0 /100WBC) 1 H Platelet Estimate (ADEQUATE) DECREASED Polychromasia 1+ Hypochromic-Microcytic 1+ PUBS MCHC (33.0 - 37.0 G/DL) 34.5 Immunology SHAE Titer Pending Anti-Nuclear Antibody Pending Serology Hepatitis A IgM Ab (NONREACTIVE) NONREACTIVE Hep Bs Antigen (NONREACTIVE) NONREACTIVE Hep B Core IgM Ab Conf (NONREACTIVE) NONREACTIVE Hepatitis C Antibody (NONREACTIVE) NONREACTIVE HIV 1&2 Ab Western Blot (NONREACTIVE) NONREACTIVE 04/10 04/09 0030 2359 Chemistry Sodium (137 - 145 mmol/L) 136 L Potassium (3.5 - 5.1 mmol/L) 3.3 L Chloride (98 - 107 mmol/L) 96 L Carbon Dioxide (22 - 30 mmol/L) 26 Anion Gap (5 - 16) 14 BUN (9 - 20 mg/dL) 14 Creatinine (0.7 - 1.2 mg/dL) 0.6 L Estimated GFR (>60 ml/min) > 60 Glucose (65 - 99 mg/dL) 143 H Calcium (8.4 - 10.2 mg/dL) 8.2 L Phosphorus (2.5 - 4.5 mg/dL) 2.5 Magnesium (1.6 - 2.3 mg/dL) 0.9 *L Total Bilirubin (0.2 - 1.3 mg/dL) 1.8 H AST (17 - 59 U/L) 132 H ALT (21 - 72 U/L) 65 Troponin I (<0.11 ng/ml) < 0.01 Albumin (3.5 - 5.0 g/dL) 3.4 L Hematology CBC w Diff MAN DIFF ORDERED WBC (4.8 - 10.8 /CUMM) 8.3 RBC (4.70 - 6.10 /CUMM) 2.88 L Hgb (14.0 - 18.0 G/DL) 10.7 L Hct (42 - 52 %) 30.9 L MCV (80.0 - 94.0 FL) 107.1 H MCH (27.0 - 31.0 PG) 37.1 H RDW (11.5 - 14.5 %) 14.6 H Plt Count (130 - 400 /CUMM) 146 MPV (7.4 - 10.4 FL) 8.9 Gran % (42.2 - 75.2 %) 86.0 H Lymphocytes % (20.5 - 51.1 %) 3.6 L Monocytes % (1.7 - 9.3 %) 10.4 H Eosinophils % (0 - 5 %) 0 Basophils % (0.0 - 2.0 %) 0 L Absolute Granulocytes (1.4 - 6.5 /CUMM) 7.2 H Absolute Lymphocytes (1.2 - 3.4 /CUMM) 0.3 L Absolute Monocytes (0.10 - 0.60 /CUMM) 0.9 H Absolute Eosinophils (0.0 - 0.7 /CUMM) 0 Absolute Basophils (0.0 - 0.2 /CUMM) 0 Platelet Estimate (ADEQUATE) ADEQUATE Polychromasia 1+ Hypochromic-Microcytic 1+ PUBS MCHC (33.0 - 37.0 G/DL) 34.6 Toxicology Urine Opiates Screen (>2000 NG/ML) > 4000.00 H Methadone Screen (>300 NG/ML) 44 Barbiturate Screen (>200 NG/ML) < 60 Ur Phencyclidine Scrn (>25 NG/ML) < 6.00 Amphetamines Screen (>1000 NG/ML) < 100 U Benzodiazepines Scrn (>200 NG/ML) < 85 Urine Cocaine Screen (>300 NG/ML) < 50 Urine Cannabis Screen (>50 NG/ML) < 5.00 04/09 7666 Chemistry Sodium (137 - 145 mmol/L) 134 L Potassium (3.5 - 5.1 mmol/L) 3.3 L Chloride (98 - 107 mmol/L) 93 L Carbon Dioxide (22 - 30 mmol/L) 29 Anion Gap (5 - 16) 13 BUN (9 - 20 mg/dL) 9 Creatinine (0.7 - 1.2 mg/dL) 0.7 Estimated GFR (>60 ml/min) > 60 BUN/Creatinine Ratio (7 - 25 %) 12.9 Glucose (65 - 99 mg/dL) 113 H Lactic Acid (0.7 - 2.1 mmol/L) 2.6 H Calcium (8.4 - 10.2 mg/dL) 8.9 Magnesium (1.6 - 2.3 mg/dL) 1.1 L Total Bilirubin (0.2 - 1.3 mg/dL) 1.5 H AST (17 - 59 U/L) 163 H ALT (21 - 72 U/L) 66 Alkaline Phosphatase (< 127 U/L) 143 H Troponin I (<0.11 ng/ml) < 0.01 Total Protein (6.3 - 8.2 g/dL) 7.1 Albumin (3.5 - 5.0 g/dL) 3.7 Globulin (1.9 - 4.2 gm/dL) 3.4 Albumin/Globulin Ratio (1.1 - 2.2 %) 1.1 Vitamin B12 (239 - 931 pg/mL) 526 Folate (2.76 - 20.0 ng/mL) 14.0 Coagulation PT (9.4 - 12.5 SEC) 13.3 H INR (0.90 - 1.17) 1.27 H APTT (25 - 37 SEC) 38 H Hematology CBC w Diff NO MAN DIFF REQ NO MAN DIFF REQ WBC (4.8 - 10.8 /CUMM) 5.7 5.6 RBC (4.70 - 6.10 /CUMM) 2.95 L 3.06 L Hgb (14.0 - 18.0 G/DL) 11.0 L 11.4 L Hct (42 - 52 %) 32.0 L 33.0 L MCV (80.0 - 94.0 FL) 108.5 H 107.9 H MCH (27.0 - 31.0 PG) 37.3 H 37.3 H RDW (11.5 - 14.5 %) 15.0 H 14.6 H Plt Count (130 - 400 /CUMM) 136 152 MPV (7.4 - 10.4 FL) 8.3 8.4 Gran % (42.2 - 75.2 %) 82.6 H 74.2 Lymphocytes % (20.5 - 51.1 %) 7.4 L 15.0 L Monocytes % (1.7 - 9.3 %) 9.5 H 10.4 H Eosinophils % (0 - 5 %) 0.1 0.1 Basophils % (0.0 - 2.0 %) 0.4 0.3 Absolute Granulocytes (1.4 - 6.5 /CUMM) 4.7 4.1 Absolute Lymphocytes (1.2 - 3.4 /CUMM) 0.4 L 0.8 L Absolute Monocytes (0.10 - 0.60 /CUMM) 0.5 0.6 Absolute Eosinophils (0.0 - 0.7 /CUMM) 0 0 Absolute Basophils (0.0 - 0.2 /CUMM) 0 0 PUBS MCHC (33.0 - 37.0 G/DL) 34.4 34.5 Toxicology Serum Alcohol (<10 MG/DL) 65.0 Imaging/Other Studies: 10/28/2015: CT ABDOMEN AND PELVIS WITH IV CONTRAST (per ER)- 1. Edema around contracted gallbladder suggesting acute cholecystitis. No bile duct dilatation. CBD 3 mm. Normal pancreas. Normal spleen. 2. Hepatomegaly with diffuse fatty infiltration of liver. No focal liver lesion. No mention of ascites. 3. DJD. 04/09/2016: EKG- ST @ 100, LAE, LAD, without acute ischemic changes. 04/09/2016: XR PORTABLE CHEST- No evidence of aspiration pneumonia. No effusion or CHF. Lungs clear. 04/09/2016: *EGD WITH FOREIGN BODY REMOVAL- 1. Clot partially cleared from lower 1/3 of esophagus, with a portion of the lower esophageal mucosa obscured. No definite esophageal varices seen. No gastric varices. No portal gastropathy. 2. Food cleared from lower esophagus, both in an antegrade and retrograde fashion, with patent esophageal lumen. 3. Suggestion of lower esophageal ring at 44 cm. 4. Small hiatal hernia pouch, without any Raheem erosions. No definite MWT seen. 5. Proximal linear gastritis. Biopsies deferred. 6. No evidence of peptic ulcer disease. 04/10/2016: CXR- Low lung volumes with bibasilar atelectasis. No acute pulmonary findings. Gaseous distention of the stomach, post EGD. Known fractured left clavicle. 04/10/2016: US ABDOMEN LIMITED (RUQ)- Increased hepatic echogenicity suspicious for steatosis. No liver nodularity to suggest cirrhosis. Mildly prominent CBD 7 mm, without IHD. Normal GB. No ascites. 04/10/2016: XR PORTABLE CHEST- Stable examination. No pneumonia, pneumothorax or pleural effusion. There are low lung volumes. There are increased pulmonary vascular markings bilaterally.
--- NOTE | 2016-04-11 10:00 | NUR ---
PT C/O NAUSEA AND DYSPHAGIA W ICE CHIPS AND C/O OF PAIN TO CHEST/EPI GASTRIC AREA-SINCE ADMISSION. NAUSEA TX W ZOFRAN X 1. PAIN TX W DILAUDID 2MG. DR SKY TO BEDSIDE TO ASSESS AND EXPLAIN POC. DR SKY OK'D PT TO HAVE CLR LIQUIDS TOLERATED, TO BE NPO AT 0000 FOR POSSIBLE UPPER GI SERIES ON 04/12. PT VSS; NSR 80-100'S. BP 130-150'S. SATS 94%+ ON ROOM AIR. LUNGS CLR. MILD CONFUSION TO TIME/DATE. DROWSY AROUSABLE. REMAINS ON IVF/IV MVI INFUSION/PROTONIX GTT/UNASYN. ELECTROLYTES REPLETED.
--- NOTE | 2016-04-11 11:38 | NUR ---
LAB REPORTED PT NARES SWAB MRSA +. PT PUT ON ISOLATION PRECAUTIONS AND EDUCATED ON MRSA AND THE NEED FOR ISOLATION/FAMILY AND STAFF PROTECTIVE REQUIREMENTS.
--- NOTE | 2016-04-11 12:50 | NUR ---
PT GIVEN CLR LIQ LUNCH. DYSPHAGIA PERSISTS. PT COUGHING UP ALL INTAKE AND HAS NOW BECOME BLOOD TINGE. MD NOTIFIED.
[2016-04-11 20:30] LABS: ABSOLUTE BASOPHIL COUNT 0 /CUMM (0.0-0.2); ABSOLUTE EOSINOPHIL COUNT 0 /CUMM (0.0-0.7); ABSOLUTE GRANULOCYTE CT 4.1 /CUMM (1.4-6.5); ABSOLUTE LYMPH COUNT 1.2 /CUMM (1.2-3.4); ABSOLUTE MONOCYTE COUNT 0.5 /CUMM (0.10-0.60); BASOPHIL % 0.4 % (0.0-2.0); EOSINOPHIL % 0.3 % (0-5); GRANULOCYTE % 70.1 % (42.2-75.2); HEMATOCRIT 25.3 % (42-52); MEAN CORPUSCULAR HGB 37.1 PG (27.0-31.0); MEAN CORPUSCULAR HGB CONC 33.9 G/DL (33.0-37.0); MEAN CORPUSCULAR VOLUME 109.6 FL (80.0-94.0); MEAN PLATELET VOLUME 8.4 FL (7.4-10.4); PLATELET COUNT 127 /CUMM (130-400); RBC DISTRIBUTION WIDTH 15.2 % (11.5-14.5); RED BLOOD CELL CT 2.31 /CUMM (4.70-6.10); WHITE BLOOD CELL COUNT 5.8 /CUMM (4.8-10.8)
[2016-04-12] VITALS (10 sets, daily range): BP systolic 145–175; BP diastolic 76–113
--- NOTE | 2016-04-12 00:59 | NUR ---
PT ALERT AND ORIENTED. MEDICATED WITH DILAUDID FOR C/O ABDOMINAL PAIN. MEDICATED WITH TIGAN WELL FOR NAUSEA. ON PROTONIX GTT. AND BANANA BAG INFUSING AT 50ML/H. INSTRUCTED TO BE NPO, FOR ENDOSCOPY IN AM. ANDOMEN SOFT, NORMOACTIVE BS. ON UNASYN WELL. SATURATION 98% ON RA, LUNGS SOUND CLEAR.
[2016-04-12 05:27] LABS: ABSOLUTE BASOPHIL COUNT 0 /CUMM (0.0-0.2); ABSOLUTE EOSINOPHIL COUNT 0 /CUMM (0.0-0.7); ABSOLUTE GRANULOCYTE CT 4.1 /CUMM (1.4-6.5); ABSOLUTE LYMPH COUNT 1.4 /CUMM (1.2-3.4); ABSOLUTE MONOCYTE COUNT 0.5 /CUMM (0.10-0.60); BASOPHIL % 0.5 % (0.0-2.0); EOSINOPHIL % 0.4 % (0-5); GRANULOCYTE % 68.1 % (42.2-75.2); HEMATOCRIT 25.1 % (42-52); MEAN CORPUSCULAR HGB 37.3 PG (27.0-31.0); MEAN CORPUSCULAR HGB CONC 33.8 G/DL (33.0-37.0); MEAN CORPUSCULAR VOLUME 110.3 FL (80.0-94.0); MEAN PLATELET VOLUME 8.4 FL (7.4-10.4); PLATELET COUNT 132 /CUMM (130-400); RBC DISTRIBUTION WIDTH 15.1 % (11.5-14.5); RED BLOOD CELL CT 2.28 /CUMM (4.70-6.10); WHITE BLOOD CELL COUNT 6.1 /CUMM (4.8-10.8)
--- NOTE | 2016-04-12 07:23 | PN- Gastroenterology ---
Assessment/Plan Assessment/Recommendations: 51 y/o male, borderline hypertensive, nondiabetic, history of intermittent alcohol abuse since high school, more so over the past 4 days [employer], last drinking earlier today, past history of DTs, chronic pain syndrome on Oxycodone per Dr. Lee, with history of multiple falls (right TKR, post 4 previous right knee surgeries, multiple bilateral collarbone fractures, chronic back pain, DJD, herniated disc, shoulder pain), followed by Dr. Herring for primary care, claiming to average "8 drinks of EtOH weekly," with remote history of lower esophageal ring and food impaction. This required 12/14/2002: EGD x 2 same day (Dr. Shaq Umana/Dr. Shameka Gillette)- food impaction removed, lower esophageal ring, hiatal hernia. No varices or portal gastropathy noted at that time. The patient was put on a short course of Carafate and Nexium then. He was not compliant with suggested follow-up for semi-elective barium swallow & esophageal dilatation. He has not seen a public safety police since. He has had rare intermittent dysphagia to solids since, which passed spontaneously. He normally has no difficulty swallowing liquids or pills. He has not had a baseline colonoscopy. There is no family history of GI disease, GI malignancy, or inherited liver disease. He denies any history of viral hepatitis, tattoos, or known history of HIV. He denies using any street drugs or IVDA, aside from the prescribed Oxycodone. He denies cigarette use. The patient was eating a ham and cheese sandwich at 4 PM 04/09/2016, followed by dysphagia, with a feeling of impaction in the mid chest. This was followed by mild odynophagia, and questionable mid-pleuritic chest pain, without any hemoptysis. The patient had clear vomiting, without bile, followed by retching, followed by vomiting bright red blood. He had a brown bowel movement earlier today. There is no history of rectal bleeding or melena. He drove himself to the [facility] 04/09/2016, arriving at 6:44 PM. He had some rags that were covered with blood. Upon presentation, BP 144/97, P- 112, R- 20, T- 97.1, O2 sat RA 99%. He continued to have a sensation of food stuck, with vomiting of blood. He denies any history of peptic ulcer disease. He denies any aspirin use, but takes Ibuprofen 4 tabs daily for years, for his chronic aches and pains. He claims he was transfused at [facility] in 10/2015, where he went for a fractured left clavicle, but did not have surgery for this. The patient received Zofran, Protonix 80 mg IV bolus followed by Protonix drip, IV saline, Ativan, 1 amp of glucagon and SL NTG x 1, as his BP was stable, in order to try to get the food bolus to move. He did not get relief from this. The patient had low normal platelets, a borderline INR, and LFTs suggestive of alcoholic hepatitis, with [EtOH] 65, upon presentation (*see labs). Previous imaging studies did not show a cirrhotic liver. The patient desaturated slightly 04/09/2016 at 7:56 PM (O2 sat RA 89%), was put on O2 2L nc. *Admission chest x-ray did not show any evidence of aspiration, but it might be too soon to tell. *I advised the ER to give the patient IV Unasyn 3g (to cover his lungs) and 1 dose of empiric IV Ceftriaxone 1g (in case esophageal banding is needed). The patient denies any jaundice, dark urine, light stool, pruritus, or confusion. He admits to rare symptoms of GERD. He denies any fevers, chills, shortness of breath, early satiety, abdominal pain, diarrhea, constipation, obstipation, or tenesmus. He denies any symptoms of UTI or URI. He denies any significant weight loss or change in appetite. He is on a water pill and potassium for periodic lower extremity edema. He denies any increased abdominal girth. He denies any known history of cirrhosis. 10/28/2015: *Previous ER labs- WBC 8.4, H/H 8.6/24.9, elevated MCV 109.4, elevated RDW 16.7, PLT 121, PT 15.9, INR 1.51, PTT 37, glucose 138, BUN/Cr 3/0.5 , sodium 134, potassium 4.3, bicarbonate 22, AG 16, albumin 2.9, globulin 3.3, TBil 6.4, DBil 4.5, alkaline phosphatase 244, AST 309, ALT 69, A/L 115/315, troponin < 0.01. 04/09/2016: *Admission labs 6:56 p.m.- CBC 5.6, H/H 11.4/33, MCV 107.9, RDW 14.6 , PLT 152, PT 13.3, INR 1.27, PTT 38, glucose 113, BUN/Cr 9/0.7, GFR > 60, sodium 134, potassium 3.3, bicarbonate 29, AG 13, magnesium 1.1, calcium 8.9, albumin 3.7, globulin 3.4, TBil 1.5 (without fracs), alk phos 143, AST 163, ALT 66, [EtOH] 65, elevated lactate 2.6. 04/09/2016: *Discriminant function by Maddrey formula- 7.48. 04/09/2016: *Repeat CBC 8:14 p.m.- WBC 5.7, H/H 11.0/32.0, MCV 108.5, RDW 15, PLT 136 10/28/2015: CT ABDOMEN AND PELVIS WITH IV CONTRAST (per ER)- 1. Edema around contracted gallbladder suggesting acute cholecystitis. No bile duct dilatation. CBD 3 mm. Normal pancreas. Normal spleen. 2. Hepatomegaly with diffuse fatty infiltration of liver. No focal liver lesion. No mention of ascites. 3. DJD. 04/09/2016: EKG- ST @ 100, LAE, LAD, without acute ischemic changes. 04/09/2016: XR PORTABLE CHEST- No evidence of aspiration pneumonia. No effusion or CHF. Lungs clear. *The patient is having an upper GI bleed that started in the setting of a food impaction. He has a remote history of a lower esophageal ring in 12/2002, for which he was not compliant with suggested semi-elective esophageal dilatation. There is a substantial history of alcohol abuse. Recent 10/28/2015: CT AP with contrast showed an enlarged fatty liver without evidence of cirrhosis or portal collaterals. He has a significant history of Ibuprofen use. He has low normal platelets with a borderline INR. His albumin:globulin ratio is normal. He has a negative discriminant function (7.48) by the Maddrey formula regarding his EtOH hepatitis, but he would not be a candidate for Prednisolone or Trental anyway, in view of his active upper GI bleeding. I feel that an IV Protonix drip is sufficient on admission, and will defer Octreotide, unless varices are seen on EGD. *Vast differential diagnosis for the above includes esophageal ulceration in the setting of food impaction, Tsering-Garsia tear post retching, peptic ulcer disease and/or NSAID gastropathy, etc., with a less likely possibility of variceal bleeding. Doubt neoplasm. Again, there has been no documented cirrhosis in the past, and the bleeding occurred after the food impaction. Other considerations regarding the dysphagia, aside from the esophageal ring, could include stricture vs. EOE > esophageal dysmotility, by history. The oxygen desaturation is noted despite the clear chest x-ray, and it is possible the patient could have aspirated preop. 04/09/2016: EGD WITH FOREIGN BODY REMOVAL- 1. Clot partially cleared from lower 1/3 of esophagus, with a portion of the lower esophageal mucosa obscured. No definite esophageal varices seen. No gastric varices. No portal gastropathy. 2. Food cleared from lower esophagus, both in an antegrade and retrograde fashion, with patent esophageal lumen. 3. Suggestion of lower esophageal ring at 44 cm. 4. Small hiatal hernia pouch, without any Raheem erosions. No definite MWT seen. 5. Proximal linear gastritis. Biopsies deferred. 6. No evidence of peptic ulcer disease. *As of 04/10/2016, the patient's blood pressure is normal. He remains tachycardic. He spiked to 101.5 with O2 sat 4L 94%. Clinically, he aspirated in the ER, as he had a low-grade temp and drop in his O2 sat, prior to the EGD. He remains extubated. His H/H have dropped after IVF & equilibration, as expected, as his admission H/H were probably falsely elevated based on his previous CBC, due to initial hemoconcentration, superimposed on the UGI bleed. Unasyn has been continued to cover probable aspiration pneumonia, although repeat CXR post EGD without infiltrate. Ativan has been added. 04/10/2016: CXR- Low lung volumes with bibasilar atelectasis. No acute pulmonary findings. Gaseous distention of the stomach, post EGD. Known fractured left clavicle. 04/09/2016: *B12 526, folate 14.0. 04/09/2016: *U Tox- OP/MS > 4000. 04/10/2016: *troponin- neg x 3; lactate normalized 1.4, PO4 2.6. 04/10/2016: *Hep A Ab, Hep Bs Ag, Hep B core Ab, Hep C Ab- all negative; HIV- negative. 04/10/2016: *normal FT4 1.54, normal TSH 0.406. 04/10/2016: *SHAE- positive 1:160 homogeneous 04/10/2016: *BC X 2- negative. 04/10/2016: *UC- negative. *As of 04/12/2016, the patient remains hemodynamically stable (borderline HTN) & not tachycardic. He is afebrile. His oxygen saturations are 95% on room air. He remains on empiric Unasyn for presumed aspiration pneumonia although multiple chest x-rays negative. He had some difficulty with ice chips experiencing dysphagia, but I gave him some water, 04/11/2016, which he tolerated uneventfully, except for some mild odynophagia on subsequent swallows. There has been no more active hematemesis. His able to clear his secretions. He had vague chest pain in the setting of chronic pain syndrome. There was previously reproduced by touch, with mild chest wall tenderness but no crepitus. There is no definite pleuritic pain or hemoptysis. Numerous troponins x 4, CXR and EKGs have been essentially negative for any acute process. There is no abdominal pain. He remains on an IV Protonix drip. He is receiving antiemetics. His last bowel movement was 04/09/2016- brown stool. His Hgb has dropped somewhat without the need for transfusion & has plateaued. His BUN has declined. There currently is no active recurrent UGI bleed. CIWA have ranged from 2-8. He is mildly agitated on Ativan as needed. He is no longer lethargic A & OX3. 04/10/2016: RUQ sono- fatty liver, without acute pathology. SUGGEST: Maintain in ICU. *NPO for repeat EGD by the bedside in the ICU later today on , depending on clinical course, to better clear the lower 1/3 of the esophagus. (Clots from NSAID use/EtOH, etc were "plugged up" by food in the lower esophagus). *Informed consent for repeat EGD was obtained from the patient after careful explanation of the risks and benefits, including the need for probable prophylactic reintubation. Gentle IVF with NS. *Replete electrolytes ( i.e.- K+/PO4-/Mg2+). *Continue IV Protonix drip at 8 mg/hour. *No need for Octreotide at present, as no definite varices seen. *Watch magnesium levels on PPI. T&C 4u PRBC. Serial CBC Q6h for now. Keep Hgb > 7 (no need to transfx at present). Strict I's and O's. Follow-up INR, lytes & LFTs. Supplemental O2. * May need gentle restraints for EtOH withdrawal. *Follow up cultures. Continue IV Unasyn to cover possible aspiration (1 dose of Ceftriaxone was given on admission preop). *CXR x 2- negative, but watch for impending aspiration PNA. *DT precautions. *Serial CIWA. *Ativan as needed. *Anti-emetics. *Continue thiamine, folate, multivitamin via banana bag. *No NSAIDs. *In view of +SHAE, advise anti-smooth muscle Ab, anti-LKM Ab (doubt AIH), anti-dsDNA Ab, and scleroderma antibodies (dysphagia). DVT prophylaxis with mechanical ALPS. *His issue of dysphagia/lower esophageal ring will have to be reassessed as an outpatient, perhaps with a barium swallow and semi-elective EGD with dilatation, after the issue of UGI bleeding is addressed. *He also is in need of an outpatient baseline colonoscopy for screening purposes. The above findings and recommendations were again discussed with the medical house staff & previously with Dr. Murray. Further recommendations to follow, depending on clinical course. 1/2 hour of ICU care was spent on the patient. Problem List: 1. Dysphagia 2. Food impaction of esophagus 3. Upper GI bleed 4. Lower esophageal ring 5. Hiatal hernia 6. Alcohol abuse 7. Alcohol withdrawal syndrome 8. Alcoholic hepatitis 9. Fatty liver 10. Macrocytic anemia 11. NSAIDs adverse reaction 12. Chronic pain syndrome Subjective Subjective: The patient remains hemodynamically stable and actually hypertensive. He is not tachycardic. He is afebrile. O2 sat RA- 95%. There has been no recurrent hematemesis. He has not had a bowel movement since 04/09/2016. He claims he cannot tolerate liquids, although I saw him drink water yesterday. He is still asking for pain meds for his chronic pain syndrome. *Please note, 04/10/2016: positive SHAE 1:160 homogeneous (r/o AIH, ? scleroderma regarding esophageal symptoms). He has vague chronic chest pain. There is no shortness of breath. Numerous troponins 4 negative. CXR x 3- negative, although the patient remains on IV Unasyn 3g Q6h for presumed aspiration pneumonia, along with IV Protonix drip, etc. CIWA have ranged from 2-8. He is now NPO, awaiting repeat EGD later today. He is aware this will require prophylactic intubation. His Hgb has plateaued & his BUN has dropped. He has not required a transfusion. Review of Systems: Full 14 point review of systems otherwise noncontributory, and as above. Review of Systems Constitutional: Reports: fever- resolved. Denies: chills, diaphoresis, malaise, weakness, unexplained weight loss. EENTM: Denies: blurred vision, double vision, visual changes, eye pain, eye drainage, eye tearing, icterus, ear discharge, ear pain, ear redness, hearing changes, nasal congestion, epistaxis, nasal pain, throat pain, throat swelling, mouth pain, tooth pain. Cardiovascular: Reports: chest pain (mild mid-pleuritic post FB)- improved; reproducible by touch, without crepitus. Denies: edema, orthopena, palpitations, peripheral edema, syncope. Respiratory: Denies: cough, hemoptysis, orthopnea, short of breath, sputum production, stridor, wheezing. GI: Reports: vomiting (hematemesis post FB- improved; dysphagia- improving). Denies: abdominal pain, bloating, constipation, diarrhea, distention, bowel incontinence, melena, nausea, bloody stool, changes in stool, steatorrhea. Genitourinary: Denies: discharge, dysuria, frequency, hematuria, hesitation, nocturia, pain, urgency. Musculoskeletal: Reports: back pain, joint pain (*chronic pain; fxd clavicle). Denies: gout, joint swelling, muscle pain, muscle stiffness, neck pain. Skin: Denies: cysts, change in skin color, change in hair/nails, dryness, erythema, jaundice, lesions, lymphangitis, lumps, moles, rash. Neurological/Psychological: Reports: anxiety, tremors, withdrawal. Denies: ataxia, cognitive dysfunction, confusion, depressed, dementia, emotional problems, headache, numbness, paresthesia, pre-existing deficit, petit mal seizures, tingling, tonic-clonic seizures, unable to move lower ext, unable to move upper ext, weakness. Hematologic/Endocrine: Denies: bruising, bleeding, polyuria, polydipsia. Immunologic/Allergic: Denies: splenectomy, HIV/AIDS, lymphadenopathy. All Other Systems: Reviewed and Negative Objective Vital Signs and I&Os Vital Signs Date Time Temp Pulse Resp B/P Pulse O2 O2 Flow FiO2 Ox Delivery Rate 04/12 734 97.2 99 24 164/109 04/12 734 99 Room Air Room Air 04/12 0735 97.2 65 18 150/90 99 Room Air Room Air 04/12 0600 85 18 152/113 04/12 0400 97.6 90 18 148/78 04/12 0400 95 Room Air 04/12 0200 104 32 158/76 04/12 0000 97.5 87 20 150/82 04/12 0000 98 Room Air 04/12 0000 97.5 87 20 150/82 98 Nasal 2.0L Cannula 04/11 2200 98.4 78 16 150/92 04/11 2000 98.4 75 18 142/60 04/11 1800 76 21 157/92 04/11 1600 98.3 78 16 150/80 / 1600 96 Room Air 04/11 1600 98.3 78 16 150/80 96 Room Air 04/11 1400 98.1 74 14 162/88 04/11 1200 97.1 78 18 134/80 /04 1200 95 Room Air Room Air 04/11 1000 98.3 83 15 155/94 04/11 0800 98.3 82 18 140/80 04/11 0800 95 Room Air 04/11 0800 98.3 82 18 140/80 94 Room Air Intake & Output 04/12 1600 05 0400 04/11 1600 04/11 0400 04/10 1600 04/10 0400 Intake Total 114 481 4053 860 2781 1320 Output Total 844 278 5611 600 1275 150 Balance -140 -90 034 635 0555 1170 Intake, IV 011 261 2433 860 2781 1320 Intake, Oral 0 0 0 Number 0 0 0 Bowel Movements Output, 75 150 Emesis Output, Urine 621 460 7818 600 1200 Patient 210 lb Weight Physical Exam: Chronically ill-appearing, slightly malnourished male, slightly anxious, in no apparent distress. No longer vomiting clots. Sclera anicteric. Conjunctiva slightly pale. Oropharynx clear. No oral thrush. No aphthous ulcers. No stridor. No head and neck or chest wall crepitus. Currently without mid-CWT (in the setting of chronic pain syndrome). There is no adenopathy, thyromegaly, or JVD. Slightly deformed left clavicle. No peripheral stigmata of inflammatory bowel disease or chronic liver disease on exam, aside from mild gynecomastia B/L , without masses or discharge. There are no spiders on the anterior chest wall. No CVA tenderness. Lungs: clear to A&P, with slight decreased breath sounds at the bases B/L. No wheezing, rales, rhonchi, or rub. Heart exam: regular rate rhythm, S1 and S2, without any murmur. Abdominal exam: normal bowel sounds, soft belly, nontender, without guarding or rebound. No mass. Enlarged liver, approximately 20 cm by percussion. Negative Garcia sign. No splenomegaly. No fluid shift. No pulsatile mass. Digital rectal exam: refused by patient (brown stool on admission, although expect subsequent melena, once esophageal clots pass). Extremities: without C, C, or E. No palpable cords. No Dupuytren's contractures. No palmar erythema. Distal pulses 2+ bilaterally. DTRs 2+ bilaterally. Left handed. CN II-XII intact. Alert and oriented x 3. No longer lethargic. Minimally agitated, on Ativan p.r.n. No tremor. No asterixis. Current Medications: Current Medications Sig/Liat Start time Last Medication Dose Route Stop Time Status Admin Ampicillin Sodium/ 3,000 MG Q6H 04/10 0400 AC 04/12 Sulbactam Sodium IV 0355 Sodium Chloride 100 ML Cyanocobalamin/ 1 BAG DAILY 04/10 0230 AC 04/11 Thiamine/Pyridoxine IV 1034 Sodium Chloride 1,000 ML Dextrose/Sodium 1,000 ML Q20H 04/10 1999 AC 04/10 Chloride IV 2017 Hydromorphone HCl 2 MG Q4P PRN 04/11 1000 AC 04/12 IV 0353 Hydromorphone HCl 1 MG Q4P PRN 04/10 1200 DC 04/11 IV 0631 Lorazepam 0 Q1P PRN 04/09 2200 AC 04/12 IV 0155 Ondansetron HCl 4 MG .STK-MED ONE 04/11 0931 DC IM 04/11 0932 Ondansetron HCl 4 MG Q6P PRN 04/10 0100 AC 04/11 IV 0936 Pantoprazole Sodium 40 MG Q5H 04/09 1900 AC 04/12 Sodium Chloride 100 ML IV 0640 Potassium Phosphate 15 mMol ONE ONE 04/11 0815 DC 04/11 Sodium Chloride 250 ML IV 04/11 1218 1034 Trimethobenzamide HCl 200 MG TID PRN 04/10 1300 AC 04/11 IM 2357 Results Pertinent Lab Results: Laboratory Tests 04/12 04/11 0400 1910 Chemistry Sodium (137 - 145 mmol/L) 141 Potassium (3.5 - 5.1 mmol/L) 3.7 Chloride (98 - 107 mmol/L) 105 Carbon Dioxide (22 - 30 mmol/L) 25 Anion Gap (5 - 16) 11 BUN (9 - 20 mg/dL) 9 Creatinine (0.7 - 1.2 mg/dL) 0.6 L Estimated GFR (>60 ml/min) > 60 Glucose (65 - 99 mg/dL) 92 Calcium (8.4 - 10.2 mg/dL) 8.1 L Phosphorus (2.5 - 4.5 mg/dL) 2.5 Magnesium (1.6 - 2.3 mg/dL) 1.9 Total Bilirubin (0.2 - 1.3 mg/dL) 1.4 H AST (17 - 59 U/L) 72 H ALT (21 - 72 U/L) 46 Albumin (3.5 - 5.0 g/dL) 2.9 L Hematology CBC w Diff NO MAN DIFF REQ NO MAN DIFF REQ WBC (4.8 - 10.8 /CUMM) 6.1 5.8 RBC (4.70 - 6.10 /CUMM) 2.28 L 2.31 L Hgb (14.0 - 18.0 G/DL) 8.5 L 8.6 L Hct (42 - 52 %) 25.1 L 25.3 L MCV (80.0 - 94.0 FL) 110.3 H 109.6 H MCH (27.0 - 31.0 PG) 37.3 H 37.1 H RDW (11.5 - 14.5 %) 15.1 H 15.2 H Plt Count (130 - 400 /CUMM) 132 127 L MPV (7.4 - 10.4 FL) 8.4 8.4 Gran % (42.2 - 75.2 %) 68.1 70.1 Lymphocytes % (20.5 - 51.1 %) 23.0 20.1 L Monocytes % (1.7 - 9.3 %) 8.0 9.1 Eosinophils % (0 - 5 %) 0.4 0.3 Basophils % (0.0 - 2.0 %) 0.5 0.4 Absolute Granulocytes (1.4 - 6.5 /CUMM) 4.1 4.1 Absolute Lymphocytes (1.2 - 3.4 /CUMM) 1.4 1.2 Absolute Monocytes (0.10 - 0.60 /CUMM) 0.5 0.5 Absolute Eosinophils (0.0 - 0.7 /CUMM) 0 0 Absolute Basophils (0.0 - 0.2 /CUMM) 0 0 PUBS MCHC (33.0 - 37.0 G/DL) 33.8 33.9 04/11 04/11 1600 0402 Chemistry Sodium (137 - 145 mmol/L) 140 Potassium (3.5 - 5.1 mmol/L) 3.3 L Chloride (98 - 107 mmol/L) 102 Carbon Dioxide (22 - 30 mmol/L) 27 Anion Gap (5 - 16) 10 BUN (9 - 20 mg/dL) 10 Creatinine (0.7 - 1.2 mg/dL) 0.6 L Estimated GFR (>60 ml/min) > 60 Glucose (65 - 99 mg/dL) 117 H Calcium (8.4 - 10.2 mg/dL) 8.0 L Phosphorus (2.5 - 4.5 mg/dL) 1.5 L Magnesium (1.6 - 2.3 mg/dL) 2.0 Total Bilirubin (0.2 - 1.3 mg/dL) 1.4 H AST (17 - 59 U/L) 67 H ALT (21 - 72 U/L) 46 Albumin (3.5 - 5.0 g/dL) 2.8 L Hematology CBC w Diff Cancelled NO MAN DIFF REQ WBC (4.8 - 10.8 /CUMM) Cancelled 6.8 RBC (4.70 - 6.10 /CUMM) Cancelled 2.21 L Hgb (14.0 - 18.0 G/DL) Cancelled 8.4 L Hct (42 - 52 %) Cancelled 24.5 L MCV (80.0 - 94.0 FL) Cancelled 110.5 H MCH (27.0 - 31.0 PG) Cancelled 37.7 H RDW (11.5 - 14.5 %) Cancelled 15.4 H Plt Count (130 - 400 /CUMM) Cancelled 121 L MPV (7.4 - 10.4 FL) Cancelled 8.5 Gran % (42.2 - 75.2 %) 76.4 H Lymphocytes % (20.5 - 51.1 %) 14.4 L Monocytes % (1.7 - 9.3 %) 8.9 Eosinophils % (0 - 5 %) 0 Basophils % (0.0 - 2.0 %) 0.3 Absolute Granulocytes (1.4 - 6.5 /CUMM) 5.2 Absolute Lymphocytes (1.2 - 3.4 /CUMM) 1.0 L Absolute Monocytes (0.10 - 0.60 /CUMM) 0.6 Absolute Eosinophils (0.0 - 0.7 /CUMM) 0 Absolute Basophils (0.0 - 0.2 /CUMM) 0 PUBS MCHC (33.0 - 37.0 G/DL) Cancelled 34.2 04/10 04/10 2255 1630 Chemistry Sodium (137 - 145 mmol/L) 138 Potassium (3.5 - 5.1 mmol/L) 3.3 L Chloride (98 - 107 mmol/L) 101 Carbon Dioxide (22 - 30 mmol/L) 28 Anion Gap (5 - 16) 10 BUN (9 - 20 mg/dL) 11 Creatinine (0.7 - 1.2 mg/dL) 0.6 L Estimated GFR (>60 ml/min) > 60 BUN/Creatinine Ratio (7 - 25 %) 18.3 Magnesium (1.6 - 2.3 mg/dL) 2.0 Hematology CBC w Diff NO MAN DIFF REQ NO MAN DIFF REQ WBC (4.8 - 10.8 /CUMM) 7.3 9.0 RBC (4.70 - 6.10 /CUMM) 2.32 L 2.40 L Hgb (14.0 - 18.0 G/DL) 8.6 L 8.9 L Hct (42 - 52 %) 25.1 L 26.0 L MCV (80.0 - 94.0 FL) 108.1 H 108.4 H MCH (27.0 - 31.0 PG) 37.3 H 37.2 H RDW (11.5 - 14.5 %) 15.5 H 14.9 H Plt Count (130 - 400 /CUMM) 129 L 142 MPV (7.4 - 10.4 FL) 8.4 8.1 Gran % (42.2 - 75.2 %) 79.0 H 83.4 H Lymphocytes % (20.5 - 51.1 %) 12.8 L 7.9 L Monocytes % (1.7 - 9.3 %) 8.0 8.7 Eosinophils % (0 - 5 %) 0 0 Basophils % (0.0 - 2.0 %) 0.2 0 L Absolute Granulocytes (1.4 - 6.5 /CUMM) 5.7 7.5 H Absolute Lymphocytes (1.2 - 3.4 /CUMM) 0.9 L 0.7 L Absolute Monocytes (0.10 - 0.60 /CUMM) 0.6 0.8 H Absolute Eosinophils (0.0 - 0.7 /CUMM) 0 0 Absolute Basophils (0.0 - 0.2 /CUMM) 0 0 PUBS MCHC (33.0 - 37.0 G/DL) 34.5 34.4 04/10 04/10 04/10 04/10 1150 0532 0532 0532 Chemistry Sodium (137 - 145 mmol/L) 136 L Potassium (3.5 - 5.1 mmol/L) 3.1 L Chloride (98 - 107 mmol/L) 97 L Carbon Dioxide (22 - 30 mmol/L) 28 Anion Gap (5 - 16) 11 BUN (9 - 20 mg/dL) 14 Creatinine (0.7 - 1.2 mg/dL) 0.6 L Estimated GFR (>60 ml/min) > 60 Glucose (65 - 99 mg/dL) 145 H Lactic Acid (0.7 - 2.1 mmol/L) 1.4 Calcium (8.4 - 10.2 mg/dL) 7.9 L Phosphorus (2.5 - 4.5 mg/dL) 2.6 Magnesium (1.6 - 2.3 mg/dL) 1.6 Total Bilirubin (0.2 - 1.3 mg/dL) 1.6 H AST (17 - 59 U/L) 104 H ALT (21 - 72 U/L) 54 Troponin I (<0.11 ng/ml) < 0.01 0.01 Albumin (3.5 - 5.0 g/dL) 2.9 L Lipase (23 - 300 U/L) < 10 L TSH (0.270 - 4.200 uIU/mL) 0.406 Free T4 (0.64 - 1.79 ng/dL) 1.54 Hematology CBC w Diff MAN DIFF ORDERED WBC (4.8 - 10.8 /CUMM) 8.7 RBC (4.70 - 6.10 /CUMM) 2.51 L Hgb (14.0 - 18.0 G/DL) 9.3 L Hct (42 - 52 %) 27.0 L MCV (80.0 - 94.0 FL) 107.7 H MCH (27.0 - 31.0 PG) 37.2 H RDW (11.5 - 14.5 %) 14.8 H Plt Count (130 - 400 /CUMM) 138 MPV (7.4 - 10.4 FL) 8.4 Gran % (42.2 - 75.2 %) 85.3 H Lymphocytes % (20.5 - 51.1 %) 4.8 L Monocytes % (1.7 - 9.3 %) 9.9 H Eosinophils % (0 - 5 %) 0 Basophils % (0.0 - 2.0 %) 0 L Absolute Granulocytes (1.4 - 6.5 /CUMM) 7.5 H Segmented Neutrophils (42.2 - 75.2 %) 78 H Band Neutrophils (0.0 - 5.0 %) 11 H Absolute Lymphocytes (1.2 - 3.4 /CUMM) 0.4 L Lymphocytes (20.5 - 51.1 %) 7 L Monocytes (1.7 - 9.3 %) 4 Absolute Monocytes (0.10 - 0.60 /CUMM) 0.9 H Absolute Eosinophils (0.0 - 0.7 /CUMM) 0 Absolute Basophils (0.0 - 0.2 /CUMM) 0 Nucleated RBCs (0.0 - 0.0 /100WBC) 1 H Platelet Estimate (ADEQUATE) DECREASED Polychromasia 1+ Hypochromic-Microcytic 1+ PUBS MCHC (33.0 - 37.0 G/DL) 34.5 Immunology SHAE Titer Anti-Nuclear Antibody (NEG,1:40) POS BY IFA ASSAY Serology Hepatitis A IgM Ab (NONREACTIVE) NONREACTIVE Hep Bs Antigen (NONREACTIVE) NONREACTIVE Hep B Core IgM Ab Conf (NONREACTIVE) NONREACTIVE Hepatitis C Antibody (NONREACTIVE) NONREACTIVE HIV 1&2 Ab Western Blot (NONREACTIVE) NONREACTIVE 04/10 04/10 0140 0030 Chemistry Sodium (137 - 145 mmol/L) 136 L Potassium (3.5 - 5.1 mmol/L) 3.3 L Chloride (98 - 107 mmol/L) 96 L Carbon Dioxide (22 - 30 mmol/L) 26 Anion Gap (5 - 16) 14 BUN (9 - 20 mg/dL) 14 Creatinine (0.7 - 1.2 mg/dL) 0.6 L Estimated GFR (>60 ml/min) > 60 Glucose (65 - 99 mg/dL) 143 H Lactic Acid (0.7 - 2.1 mmol/L) 2.2 H Calcium (8.4 - 10.2 mg/dL) 8.2 L Phosphorus (2.5 - 4.5 mg/dL) 2.5 Magnesium (1.6 - 2.3 mg/dL) 0.9 *L Total Bilirubin (0.2 - 1.3 mg/dL) 1.8 H AST (17 - 59 U/L) 132 H ALT (21 - 72 U/L) 65 Troponin I (<0.11 ng/ml) < 0.01 Albumin (3.5 - 5.0 g/dL) 3.4 L Hematology CBC w Diff MAN DIFF ORDERED WBC (4.8 - 10.8 /CUMM) 8.3 RBC (4.70 - 6.10 /CUMM) 2.88 L Hgb (14.0 - 18.0 G/DL) 10.7 L Hct (42 - 52 %) 30.9 L MCV (80.0 - 94.0 FL) 107.1 H MCH (27.0 - 31.0 PG) 37.1 H RDW (11.5 - 14.5 %) 14.6 H Plt Count (130 - 400 /CUMM) 146 MPV (7.4 - 10.4 FL) 8.9 Gran % (42.2 - 75.2 %) 86.0 H Lymphocytes % (20.5 - 51.1 %) 3.6 L Monocytes % (1.7 - 9.3 %) 10.4 H Eosinophils % (0 - 5 %) 0 Basophils % (0.0 - 2.0 %) 0 L Absolute Granulocytes (1.4 - 6.5 /CUMM) 7.2 H Absolute Lymphocytes (1.2 - 3.4 /CUMM) 0.3 L Absolute Monocytes (0.10 - 0.60 /CUMM) 0.9 H Absolute Eosinophils (0.0 - 0.7 /CUMM) 0 Absolute Basophils (0.0 - 0.2 /CUMM) 0 Platelet Estimate (ADEQUATE) ADEQUATE Polychromasia 1+ Hypochromic-Microcytic 1+ PUBS MCHC (33.0 - 37.0 G/DL) 34.6 04/09 04/09 3712 2013 Hematology CBC w Diff NO MAN DIFF REQ WBC (4.8 - 10.8 /CUMM) 5.7 RBC (4.70 - 6.10 /CUMM) 2.95 L Hgb (14.0 - 18.0 G/DL) 11.0 L Hct (42 - 52 %) 32.0 L MCV (80.0 - 94.0 FL) 108.5 H MCH (27.0 - 31.0 PG) 37.3 H RDW (11.5 - 14.5 %) 15.0 H Plt Count (130 - 400 /CUMM) 136 MPV (7.4 - 10.4 FL) 8.3 Gran % (42.2 - 75.2 %) 82.6 H Lymphocytes % (20.5 - 51.1 %) 7.4 L Monocytes % (1.7 - 9.3 %) 9.5 H Eosinophils % (0 - 5 %) 0.1 Basophils % (0.0 - 2.0 %) 0.4 Absolute Granulocytes (1.4 - 6.5 /CUMM) 4.7 Absolute Lymphocytes (1.2 - 3.4 /CUMM) 0.4 L Absolute Monocytes (0.10 - 0.60 /CUMM) 0.5 Absolute Eosinophils (0.0 - 0.7 /CUMM) 0 Absolute Basophils (0.0 - 0.2 /CUMM) 0 PUBS MCHC (33.0 - 37.0 G/DL) 34.4 Toxicology Urine Opiates Screen (>2000 NG/ML) > 4000.00 H Methadone Screen (>300 NG/ML) 44 Barbiturate Screen (>200 NG/ML) < 60 Ur Phencyclidine Scrn (>25 NG/ML) < 6.00 Amphetamines Screen (>1000 NG/ML) < 100 U Benzodiazepines Scrn (>200 NG/ML) < 85 Urine Cocaine Screen (>300 NG/ML) < 50 Urine Cannabis Screen (>50 NG/ML) < 5.00 04/09 1856 Chemistry Sodium (137 - 145 mmol/L) 134 L Potassium (3.5 - 5.1 mmol/L) 3.3 L Chloride (98 - 107 mmol/L) 93 L Carbon Dioxide (22 - 30 mmol/L) 29 Anion Gap (5 - 16) 13 BUN (9 - 20 mg/dL) 9 Creatinine (0.7 - 1.2 mg/dL) 0.7 Estimated GFR (>60 ml/min) > 60 BUN/Creatinine Ratio (7 - 25 %) 12.9 Glucose (65 - 99 mg/dL) 113 H Lactic Acid (0.7 - 2.1 mmol/L) 2.6 H Calcium (8.4 - 10.2 mg/dL) 8.9 Magnesium (1.6 - 2.3 mg/dL) 1.1 L Total Bilirubin (0.2 - 1.3 mg/dL) 1.5 H AST (17 - 59 U/L) 163 H ALT (21 - 72 U/L) 66 Alkaline Phosphatase (< 127 U/L) 143 H Troponin I (<0.11 ng/ml) < 0.01 Total Protein (6.3 - 8.2 g/dL) 7.1 Albumin (3.5 - 5.0 g/dL) 3.7 Globulin (1.9 - 4.2 gm/dL) 3.4 Albumin/Globulin Ratio (1.1 - 2.2 %) 1.1 Vitamin B12 (239 - 931 pg/mL) 526 Folate (2.76 - 20.0 ng/mL) 14.0 Coagulation PT (9.4 - 12.5 SEC) 13.3 H INR (0.90 - 1.17) 1.27 H APTT (25 - 37 SEC) 38 H Hematology CBC w Diff NO MAN DIFF REQ WBC (4.8 - 10.8 /CUMM) 5.6 RBC (4.70 - 6.10 /CUMM) 3.06 L Hgb (14.0 - 18.0 G/DL) 11.4 L Hct (42 - 52 %) 33.0 L MCV (80.0 - 94.0 FL) 107.9 H MCH (27.0 - 31.0 PG) 37.3 H RDW (11.5 - 14.5 %) 14.6 H Plt Count (130 - 400 /CUMM) 152 MPV (7.4 - 10.4 FL) 8.4 Gran % (42.2 - 75.2 %) 74.2 Lymphocytes % (20.5 - 51.1 %) 15.0 L Monocytes % (1.7 - 9.3 %) 10.4 H Eosinophils % (0 - 5 %) 0.1 Basophils % (0.0 - 2.0 %) 0.3 Absolute Granulocytes (1.4 - 6.5 /CUMM) 4.1 Absolute Lymphocytes (1.2 - 3.4 /CUMM) 0.8 L Absolute Monocytes (0.10 - 0.60 /CUMM) 0.6 Absolute Eosinophils (0.0 - 0.7 /CUMM) 0 Absolute Basophils (0.0 - 0.2 /CUMM) 0 PUBS MCHC (33.0 - 37.0 G/DL) 34.5 Toxicology Serum Alcohol (<10 MG/DL) 65.0 Imaging/Other Studies: 10/28/2015: CT ABDOMEN AND PELVIS WITH IV CONTRAST (per ER)- 1. Edema around contracted gallbladder suggesting acute cholecystitis. No bile duct dilatation. CBD 3 mm. Normal pancreas. Normal spleen. 2. Hepatomegaly with diffuse fatty infiltration of liver. No focal liver lesion. No mention of ascites. 3. DJD. 04/09/2016: EKG- ST @ 100, LAE, LAD, without acute ischemic changes. 04/09/2016: XR PORTABLE CHEST- No evidence of aspiration pneumonia. No effusion or CHF. Lungs clear. 04/09/2016: *EGD WITH FOREIGN BODY REMOVAL- 1. Clot partially cleared from lower 1/3 of esophagus, with a portion of the lower esophageal mucosa obscured. No definite esophageal varices seen. No gastric varices. No portal gastropathy. 2. Food cleared from lower esophagus, both in an antegrade and retrograde fashion, with patent esophageal lumen. 3. Suggestion of lower esophageal ring at 44 cm. 4. Small hiatal hernia pouch, without any Raheem erosions. No definite MWT seen. 5. Proximal linear gastritis. Biopsies deferred. 6. No evidence of peptic ulcer disease. 04/10/2016: CXR- Low lung volumes with bibasilar atelectasis. No acute pulmonary findings. Gaseous distention of the stomach, post EGD. Known fractured left clavicle. 04/10/2016: US ABDOMEN LIMITED (RUQ)- Increased hepatic echogenicity suspicious for steatosis. No liver nodularity to suggest cirrhosis. Mildly prominent CBD 7 mm, without IHD. Normal GB. No ascites. 04/10/2016: XR PORTABLE CHEST- Stable examination. No pneumonia, pneumothorax or pleural effusion. There are low lung volumes. There are increased pulmonary vascular markings bilaterally.
--- NOTE | 2016-04-12 07:47 | NUR ---
REC'D THE PT IN BED. PT IS A&OX3,MCKINNEY. C/O NAUSEA AND 10/10 DULL PAIN TO CHEST AND BACK. WILL ADMINISTER DILAUDID WHEN THE PT IS DUE. PT IS IN A NSR WITHOUT ECTOPY PER THE WINDOWS INFRASTRUCTURE ENGINEER. SHANDRA BS ARE CLEAR WITH AN O2 SAT OF 99% ON ROOM AIR. ABD IS SOFT WITH NORMOACTIVE BOWEL SOUNDS. PT IS NPO FOR AN UPPER ENDOSCOPY TO BE PERFORMED LATER TODAY. THE PTIS ON A BANANA BAG AT 50ML/HR INFUSING VIA A #20 TO THE RF. REMAINS ON THE PROTONIX GTT AT 20ML/HR INFUSING VIA A #20 TO THE LH.
--- NOTE | 2016-04-12 07:49 | PN- Resident CRCU ---
Subjective HPI/CRCU Issues: He is 51-year-od man with past medical history of food impaction in esophagus in 2002 status post upper GI endoscopy for removal, Schatzki ring, hiatal hernia, past medical history of pancreatitis, chronic pain syndrome (right knee, back, left shoulder pain) on oxycodone and ibuprofen (takes 200 mg tablet 4 times a day for months) and alcohol abuse (drinks 3 times per week, each time 2-3 beers, drank 8 beers on Candy per pt) presented to ER with complaint of vomiting bright red blood. He underwent EGD in ICU after presentation - got a clot removed from lower 1/3 of esophagus. However a repeat endoscopy is performed today after his stabilization. He is found to have Grade D ulcerative esophagitis with 2 organizing clots at 35 and 38cm. No esophageal or gastric varices seen. Biopsies obviously deferred. He is stable to transfer to floor. 24 Hour Events: I saw and examined the patient today morning. He is feeling anxious about procedure, especially about aspirating, so gave a single dose of lorazepam 0.25mg IV. otherwise he remained stable overnight. Objective Vital Signs & I&O Last 8 Hrs of Vitals and I&O: Intake & Output 04/12 1600 Intake Total 936 Output Total 500 Balance 436 Intake, IV 936 Output, Urine 500 Patient 94.801 kg Weight Vital signs remained stable overnight, he is on room air. On Protonix drip Nothing by mouth from midnight for the procedure. Exam General Appearance: well developed/nourished, alert, awake, anxious, mild distress Head: atraumatic, normal appearance Ears, Nose, Throat: normal pharynx, normal ENT inspection, hearing grossly normal Neck: normal inspection, supple, full range of motion Respiratory: normal breath sounds, chest non-tender, no respiratory distress Cardiovascular: regular rate/rhythm, normal peripheral pulses Gastrointestinal: normal bowel sounds, soft, non-tender Extremities: normal inspection, normal capillary refill, normal range of motion Cranial Nerves: normal hearing, normal speech, PERRL Skin: intact IV Drips IV Drips: Protonix Nutrition Nutrition: NPO Current Medications: Current Medications Sig/Liat Start time Last Medication Dose Route Stop Time Status Admin Ampicillin Sodium/ 3,000 MG Q6H 04/10 0400 AC 04/12 Sulbactam Sodium IV 1532 Sodium Chloride 100 ML Chlorhexidine 1 GM .STK-MED ONE 04/12 1501 DC Gluconate TOP 04/12 1502 Cyanocobalamin/ 1 BAG DAILY 04/10 0230 AC 04/12 Thiamine/Pyridoxine IV 1532 Sodium Chloride 1,000 ML Dextrose/Sodium 1,000 ML Q20H 04/10 1999 AC 04/10 Chloride IV 2017 Hydromorphone HCl 2 MG Q4P PRN 04/11 1000 AC 04/12 IV 205 Lidocaine 15 ML Q4P PRN 04/12 1999 AC PO Lorazepam 0.25 MG ONCE ONE 04/12 0915 DC 04/12 IV 04/12 0916 1036 Lorazepam 0 Q1P PRN 04/09 2200 AC 04/12 IV 0155 Ondansetron HCl 4 MG Q6P PRN 04/10 0100 AC 04/11 IV 0936 Pantoprazole Sodium 40 MG BID 04/12 220 AC IV Pantoprazole Sodium 40 MG BID 04/12 1428 DC IV Pantoprazole Sodium 40 MG Q5H 04/09 1900 DC 04/12 Sodium Chloride 100 ML IV 1210 Potassium Chloride 10 MEQ ONCE ONE 04/12 0800 DC 04/12 IV 04/12 0801 0756 Sucralfate 1,000 MG TID 04/12 1600 AC 04/12 PO 1535 Trimethobenzamide HCl 200 MG TID PRN 04/10 1300 AC 04/11 IM 2357 CXR Findings: IMPRESSION: Minimal right basilar atelectasis. No evidence of fluid overload. Impression/Plan Impression/Problem List Impression: He is 51-year-old man with past medical history of food impaction in esophagus in 2002 status post upper GI endoscopy for removal, Schatzki ring, hiatal hernia , past medical history of pancreatitis, chronic pain syndrome (right knee, back, left shoulder pain) on oxycodone and ibuprofen (takes 200 mg tablet 4 times a day for months) and alcohol abuse (drinks 3 times per week, each time 2-3 beers, drank 8 beers on per pt) presented to ER with complaint of vomiting bright red blood. He underwent EGD in ICU after presentation - got a clot removed from lower 1/3 of esophagus. However a repeat endoscopy is performed today after his stabilization. He is found to have Grade D ulcerative esophagitis with 2 organizing clots at 35 and 38cm. No esophageal or gastric varices seen. Biopsies obviously deferred. PLAN Hematemesis S/P choking food * Underwent endoscopy today which revealed ulcerative esophagitis. * Discontinued Protonix drip, started on IV Protonix 40 twice a day, sucralfate 3 times a day, Viscous Xylocaine medicine 2% swish and swallow. * He tolerated the procedure well and remained stable after the procedure * started on clear liquid diet after the procedure Suspected aspiration pneumonia * Hematemesis followed by an episode of desaturation and febrile with a Tmax of 101.5 * On unasyn 3g Q6 * f/u cultures are negative so far History of chronic alcohol abuse * Recently hospitalized in [place] for alcohol detoxification * On banana bag and CIWA protocol * Tachycardic with very high Blood pressure - stablized today. * Alert and oriented X3, but often says that he had some polyp in his neck that need to be removed. History of chronic pain syndrome secondary to multiple falls * On oxycodone 10mg Q4 at home * Placed on dilaudid 1mg Q4 PRN today - will change the dose depending on the requirement. Problem List: 1. Alcohol withdrawal syndrome 2. Upper GI bleed 3. Dysphagia 4. Food impaction of esophagus 5. Hiatal hernia 6. Alcohol abuse Pain Ratin Pain Location: Chest pain Tomorrow's Labs & Rationales: ICU bundle & CBC Plan DVT/Prophylaxis: mechanical Code Status: Full Code
--- NOTE | 2016-04-12 07:49 | PN- Housestaff ---
Assessment/Plan Consulting Request: Consulting Specialty: Gastroenterology
--- NOTE | 2016-04-12 10:08 | PN- CRCU ---
Subjective HPI/Critical Care Issues: Patient seen and examined this morning. He has been hemodynamically stable saturating 99% on room air afebrile. He is awaiting GI evaluation for possible repeat endoscopy. Hemoglobin is 8.5. His pain continues to be significant however pain medications control this. Dyspnea and pain relieved with pain medications. Objective Current Medications: Current Medications Sig/Liat Start time Last Medication Dose Route Stop Time Status Admin Ampicillin Sodium/ 3,000 MG Q6H 04/10 0400 AC 04/12 Sulbactam Sodium IV 0355 Sodium Chloride 100 ML Cyanocobalamin/ 1 BAG DAILY 04/10 0230 AC 04/11 Thiamine/Pyridoxine IV 1034 Sodium Chloride 1,000 ML Dextrose/Sodium 1,000 ML Q20H 04/10 2000 AC 04/10 Chloride IV 2017 Hydromorphone HCl 2 MG Q4P PRN 04/11 1000 AC 04/12 IV 0756 Lorazepam 0.25 MG ONCE ONE 04/12 0915 DC IV 04/12 0916 Lorazepam 0 Q1P PRN 04/09 2200 AC 04/12 IV 0155 Ondansetron HCl 4 MG Q6P PRN 04/10 0100 AC 04/11 IV 0936 Pantoprazole Sodium 40 MG Q5H 04/09 1900 AC 04/12 Sodium Chloride 100 ML IV 0640 Potassium Chloride 10 MEQ ONCE ONE 04/12 0800 DC 04/12 IV 04/12 0801 0756 Potassium Phosphate 15 mMol ONE ONE 04/11 0815 DC 04/11 Sodium Chloride 250 ML IV 04/11 1218 1034 Trimethobenzamide HCl 200 MG TID PRN 04/10 1300 AC 04/11 IM 2357 Vital Signs & I&O Last 24 Hrs of Vitals and I&O: Vital Signs Date Time Temp Pulse Resp B/P Pulse O2 O2 Flow FiO2 Ox Delivery Rate 04/12 734 97.2 99 24 164/109 04/12 0735 99 Room Air Room Air 04/12 734 97.2 65 18 150/90 99 Room Air Room Air 04/12 0600 85 18 152/113 04/12 0400 97.6 90 18 148/78 04/12 0400 95 Room Air 04/12 0200 104 32 158/76 04/12 0000 97.5 87 20 150/82 04/12 0000 98 Room Air 04/12 0000 97.5 87 20 150/82 98 Nasal 2.0L Cannula 04/110 98.4 78 16 150/92 04/11 2000 98.4 75 18 142/60 04/11 1800 76 21 157/92 04/11 1600 98.3 78 16 150/80 04/11 1600 96 Room Air 04/11 1600 98.3 78 16 150/80 96 Room Air 04/11 1400 98.1 74 14 162/88 04/11 1200 97.1 78 18 134/80 04/11 1200 95 Room Air Room Air Intake & Output 04/12 1600 04/12 0800 04/12 0000 Intake Total 560 760 Output Total 700 850 Balance -140 -90 Intake, IV 560 760 Output, Urine 700 850 Exam Other Physical Findings: General - Alert, awake and oriented HEENT - normocephalic, atraumatic Cardiovascular - S1, S2 Lungs - clear to auscultation bilaterally Abdomen - soft, bowel sounds positive, no tenderness Extremities - without edema or cyanosis Results Last 24 Hrs of Lab Results: Laboratory Tests 04/12/16 0400: Anion Gap 11, Estimated GFR > 60, Glucose 92, Calcium 8.1 L, Phosphorus 2.5, Magnesium 1.9, Total Bilirubin 1.4 H, AST 72 H, ALT 46, Albumin 2.9 L, CBC w Diff NO MAN DIFF REQ, RBC 2.28 L, MCV 110.3 H, MCH 37.3 H, RDW 15.1 H, MPV 8.4, Gran % 68.1, Lymphocytes % 23.0, Monocytes % 8.0, Eosinophils % 0.4, Basophils % 0.5, Absolute Granulocytes 4.1, Absolute Lymphocytes 1.4, Absolute Monocytes 0.5, Absolute Eosinophils 0, Absolute Basophils 0, PUBS MCHC 33.8 04/11/16 1910: CBC w Diff NO MAN DIFF REQ, RBC 2.31 L, MCV 109.6 H, MCH 37.1 H, RDW 15.2 H, MPV 8.4, Gran % 70.1, Lymphocytes % 20.1 L, Monocytes % 9.1, Eosinophils % 0.3, Basophils % 0.4, Absolute Granulocytes 4.1, Absolute Lymphocytes 1.2, Absolute Monocytes 0.5, Absolute Eosinophils 0, Absolute Basophils 0, PUBS MCHC 33.9 04/11/16 1600: CBC w Diff Cancelled, WBC Cancelled, RBC Cancelled, Hgb Cancelled, Hct Cancelled , MCV Cancelled, MCH Cancelled, RDW Cancelled, Plt Count Cancelled, MPV Cancelled, PUBS MCHC Cancelled Impression/Plan Impression/Plan Impression/Plan: Impression 51-year-old man with acute blood loss anemia secondary to food impaction and GI bleed. Chronic pain syndrome, EtOH dependence history and suspected aspiration pneumonia. Plan - Await GI recommendations for repeat endoscopy possibly - Continue Unasyn empirically for possible aspiration pneumonia - Repeat chest x-ray today - diet per gi, npo at this time - pain control -dvt prophylaxis with ALPS for now given anemia at all times TTS 35min Code Status: Full Code
--- NOTE | 2016-04-12 12:00 | RADIOLOGY REPORT ---
EXAMINATION: XR PORTABLE CHEST CLINICAL INFORMATION: Chest pain. Dysphagia. COMPARISON: 04/10/2016 TECHNIQUE: Portable view of the chest was obtained. FINDINGS: Cardiac leads overlie the chest. Mild elevation of the right hemidiaphragm. No pleural effusion or edema. Minimal right basilar subsegmental atelectasis. No pneumothorax. The cardiomediastinal silhouette is unchanged. IMPRESSION: Minimal right basilar atelectasis. No evidence of fluid overload.
--- NOTE | 2016-04-12 13:55 | Proc Note Endoscopy ---
Endoscopy Procedure Medical History: unchanged Mental Status: alert/oriented Heart/Lung Eval Prior to Sedation: within normal limits Candidate for Sedation? Yes Procedure Date: 04/12/16 Procedure Type: EGD Legal Consultant: ARETHA SKY MD ASA Classification: III Indications: (*Please refer to GI consult of 04/09/2016). INDX: 51-year-old male, alcoholic, Ibuprofen use, chronic pain syndrome, history of lower esophageal ring, food impaction, hematemesis. 04/09/2016: EGD WITH FOREIGN BODY REMOVAL- 1. Clot partially cleared from lower 1/3 of esophagus, with a portion of the lower esophageal mucosa obscured. No definite esophageal varices seen. No gastric varices. No portal gastropathy. 2. *Food cleared from lower esophagus, both in an antegrade and retrograde fashion, with patent esophageal lumen. 3. Suggestion of lower esophageal ring at 44 cm. 4. Small hiatal hernia pouch, without any Raheem erosions. No definite MWT seen. 5. Proximal linear gastritis. Biopsies deferred. 6. No evidence of peptic ulcer disease. *Follow-up EGD being performed to better clear the lower 1/3 of the esophagus. ( *Clots from NSAID use/EtOH, etc. were previously "plugged up" by food in the lower esophagus on the 04/09/2016: EGD. Hopefully, the clots have passed since the vast majority of the food was removed). Instrument: diagnostic gastroscope Meds Received: MAC Patient's Tolerance: good Complications: none Extent Reached: second part of duodenum Procedure: Follow-up upper endoscopy to the second portion of the duodenum was performed with the Olympus high definition videoendoscope, after obtaining informed consent from the patient, with the bus driver/monitor and pulse oximeter, with the assistance of Dr. [place], of [facility]. A mouthpiece was placed in the usual fashion to protect the patient's teeth. The patient was placed in the left lateral decubitus position and sedated by [facility]. At this point, the endoscope was advanced from the mouth into the esophagus, using direct visualization technique. The vocal cords appeared normal. The proximal esophageal mucosa appeared normal. There were no fixed esophageal rings or webs , but there was suggestion of perhaps some intermittent esophageal ribbing vs. tertiary contractions in the lower half of the esophagus. There was grade D esophagitis with superficial ulcerations and 2 organizing clots in the esophagus at 35 and 38 cm. Initially I tried to wash these with Y-iopsy water jet, but as these were no longer actively bleeding, I decided to leave them intact. There were no exophytic esophageal lesions. For obvious reasons, biopsies of the esophagus were deferred at present, but should be pursued down the road. There was no monilia or vesicles. The esophageal lumen was patent, without any stricture. There was no longer any residual food impaction. The Z line was somewhat faint, yet well demarcated at 44 cm. There was a small hiatal hernia pouch, without any Raheem erosions. No ectopic islands or gross Morse's esophagus was seen, but the esophageal mucosa is currently too inflamed to definitively exclude this. There were no esophageal or gastric varices, nor any Tsering Garsia tear. The aleman of the stomach distended normally with air insufflation. Direct and retroflexed views of the stomach were performed. There was nothing endoscopically to suggest gastroparesis or portal gastropathy. The mucosa of the gastric cardia, fundus, lesser curvature, and incisura showed some mild inflammation, consistent with proximal gastritis. Clots were no longer obscuring the gastric cardia and fundus, as they had passed over the previous few days, since the admission EGD. The mucosa of the gastric body and antrum appeared normal, without any gastric ulcers or gastric lesions. The pylorus was patent, without any gastric outlet obstruction or channel ulcer. The duodenal bulb and duodenal sweep appeared normal, without any duodenal ulcers, distal ulcerations, or angiodysplasias. Bile was seen in the duodenum. I was not able to see the ampulla with the direct-viewing scope. The folds of the second portion of the duodenum were normal in caliber, without any flattening, nodularity, scalloping, or mosaic pattern. No active upper GI bleeding was seen, keeping in mind the organizing clots in the esophagus at 35 and 38 cm. As the patient was tolerating the procedure well and was having no active upper GI bleeding, prophylactic intubation was deferred, per anesthesia. The patient tolerated the procedure well. Impression: 1. Grade D ulcerative esophagitis with 2 organizing clots at 35 and 38 cm. No esophageal or gastric varices seen. Biopsies obviously deferred. 2. Z line at 44 cm. Patent esophageal lumen without any residual food impaction. 3. No fixed esophageal ribbing but rather intermittent ribbing in the lower 1/2 of the esophagus. Rule out EOE vs. esophageal dysmotility. 4. Small hiatal hernia. 5. Proximal gastritis. Recommendations: *Okay from GI perspective to transfer from ICU to General Medicine. *May switch IV Protonix drip to IV Protonix 40 mg BID. *Add Carafate slurry 1g tab mixed with 8 oz H2O po TID 1/2 hour before meals. *Add viscous xylocaine 2% 1 tsp swish & swallow Q4h as needed. Clears po as tolerated. Gentle IVF with NS. *Replete electrolytes (i.e.- K+/PO4-/Mg2+). *No need for Octreotide at present, as no definite varices seen. *Watch magnesium levels on PPI. T&C 4u PRBC. Check CBC daily for now. Keep Hgb > 7 (no need to transfx at present). Strict I's and O's. Follow-up INR, lytes & LFTs. Supplemental O2 as needed. *May need gentle restraints for EtOH withdrawal. *Follow up cultures. Continue IV Unasyn to cover possible aspiration (1 dose of Ceftriaxone was given on admission preop). *CXR x 2- negative, but watch for impending aspiration PNA. *DT precautions. *Serial CIWA. *Ativan as needed. *Anti-emetics. * Continue thiamine, folate, multivitamin via banana bag. *No NSAIDs. *In view of +SHAE, advise anti-smooth muscle Ab, anti-LKM Ab (doubt AIH), anti-dsDNA Ab, and scleroderma antibodies (dysphagia). DVT prophylaxis with mechanical ALPS. *His issue of dysphagia/odynophagia will have to be reassessed as an outpatient, perhaps with a barium swallow and repeat EGD with biopsies (r/o EOE) vs. esophageal manometry, after the UGI bleeding is under better control & the clots have stabilized. *He also is in need of an outpatient baseline colonoscopy for screening purposes. The above findings and recommendations were again discussed with the patient, the medical house staff & with Dr. Murray. Further recommendations to follow, depending on clinical course. CC: OSCAR EDWARD,TESSIE; LIVIA EDWARD,LORENZO Lizama; DC EDWARD,ALMAS; LINA DEWARD,CYRIL Verde; ANTOINE EDWARD,LUCIA
--- NOTE | 2016-04-12 15:40 | NUR ---
PT IS S/P UPPER ENDOSCOPY WHICH WAS COMPLETED AT 1420. PT IS COMPLETELY AWAKE AND OX3. PROTONIX GTT STOPPED AND THE PT WAS STARTED ON PROTONIX 40MG IV BID. THE PT WAS ALSO STARTED ON A CARAFATE SLURRY WHICH WAS JUST ADMINISTERED. PT HAS BEEN DOWNGRADED TO GEN MED.
[2016-04-13] VITALS: BP 144/78
[2016-04-13 05:50] LABS: ABSOLUTE BASOPHIL COUNT 0 /CUMM (0.0-0.2); ABSOLUTE EOSINOPHIL COUNT 0.1 /CUMM (0.0-0.7); ABSOLUTE GRANULOCYTE CT 4.1 /CUMM (1.4-6.5); ABSOLUTE LYMPH COUNT 1.1 /CUMM (1.2-3.4); ABSOLUTE MONOCYTE COUNT 0.5 /CUMM (0.10-0.60); BASOPHIL % 0.4 % (0.0-2.0); EOSINOPHIL % 1.6 % (0-5); GRANULOCYTE % 70.1 % (42.2-75.2); HEMATOCRIT 24.9 % (42-52); MEAN CORPUSCULAR HGB 37.5 PG (27.0-31.0); MEAN CORPUSCULAR HGB CONC 34.5 G/DL (33.0-37.0); MEAN PLATELET VOLUME 8.1 FL (7.4-10.4); PLATELET COUNT 146 /CUMM (130-400); RBC DISTRIBUTION WIDTH 14.6 % (11.5-14.5); RED BLOOD CELL CT 2.28 /CUMM (4.70-6.10); WHITE BLOOD CELL COUNT 5.9 /CUMM (4.8-10.8)
[2016-04-13 08:00] VITALS: BP 138/82
[2016-04-13 08:15] VITALS: BP 138/82
--- NOTE | 2016-04-13 08:27 | PN- Housestaff ---
Subjective Follow-up For: Grade D ulcerative esophagitis Complaints: no complaints Tele-Events Since Last Visit: Not on monitor Subjective: I saw and examined the patient today morning. He still feels difficulty in swallowing but much better comperitively. He denies any nausea/bloody vomiting. He is able to tolerate clear liquid diet well, so started on full liquid diet. Review of Systems Constitutional: Reports: no symptoms, see HPI. Comments: ROS negative except for the above. Objective Last 24 Hrs of Vital Signs/I&O Vital Signs Date Time Temp Pulse Resp B/P Pulse O2 O2 Flow FiO2 Ox Delivery Rate 04/13 0815 98.8 78 18 138/82 99 Room Air 04/13 0800 98.8 78 18 138/82 04/13 0000 98.9 85 20 144/78 96 Room Air 04/13 0000 96 Room Air Intake & Output 04/13 1600 04/13 0800 04/13 0000 Intake Total 1350 1293 1160 Output Total 500 500 Balance 1350 793 660 Intake, IV 750 653 600 Intake, Oral 600 640 560 Output, Urine 500 500 Physical Exam General Appearance: Alert, Oriented X3, Cooperative, No Acute Distress Skin: No Rashes, No Breakdown HEENT: Atraumatic, PERRLA Neck: Supple, No JVD Cardiovascular: Regular Rate, Normal S1, Normal S2, No Murmurs Lungs: Clear to Auscultation, Normal Air Movement Abdomen: Normal Bowel Sounds, Soft, No Tenderness, Tenderness in the epigastric region Neurological: Normal Gait, Normal Speech, Strength at 5/5 X4 Ext, Normal Tone, Sensation Intact, Cranial Nerves 3-12 NL Extremities: No Clubbing, No Cyanosis, No Edema Vascular: Normal Pulses, Pulses Symmetrical Current Medications: Current Medications Sig/Liat Start time Last Medication Dose Route Stop Time Status Admin Ampicillin Sodium/ 3,000 MG Q6H 04/10 0400 DC 04/13 Sulbactam Sodium IV 0448 Sodium Chloride 100 ML Cyanocobalamin/ 1 BAG DAILY 04/10 0230 DC 04/13 Thiamine/Pyridoxine IV 1050 Sodium Chloride 1,000 ML Dextrose/Sodium 1,000 ML Q20H 04/10 2000 AC 04/13 Chloride IV 0920 Folic Acid 1 MG DAILY 04/13 1200 AC 04/13 PO 1325 Hydromorphone HCl 2 MG Q4P PRN 04/11 1000 DC 04/13 IV 0945 Lidocaine 15 ML Q4P PRN 04/12 2000 AC PO Lorazepam 0.5 MG ONE ONE 04/12 2315 DC 04/12 PO 04/12 2316 2357 Lorazepam 0 Q1P PRN 04/09 2200 AC 04/12 IV 0155 Magnesium Oxide 400 MG DAILY 04/13 1000 AC 04/13 PO 0919 Multivitamins 1 TAB DAILY 04/14 1000 AC PO Omeprazole 40 MG BID 04/13 2200 AC PO Ondansetron HCl 4 MG Q6P PRN 04/10 0100 AC 04/11 IV 0936 Oxycodone HCl 10 MG Q4P PRN 04/13 1415 AC 04/13 PO 1430 Pantoprazole Sodium 40 MG BID 04/12 2200 DC 04/13 IV 0919 Potassium Phosphate 15 mMol ONE ONE 04/13 0745 DC 04/13 Dextrose/Water 250 ML IV 04/13 1148 0922 Sucralfate 1,000 MG TID 04/12 1600 AC 04/13 PO 0918 Thiamine HCl 50 MG DAILY 04/14 1000 AC PO Trimethobenzamide HCl 200 MG TID PRN 04/10 1300 AC 04/11 IM 2357 Last 24 Hrs of Lab/Jesus Results Last 24 Hrs of Labs/Mics: Laboratory Tests 04/13/16 0500: Anion Gap 11, Estimated GFR > 60, Glucose 103 H, Calcium 8.0 L, Phosphorus 2.4 L, Magnesium 1.6, Total Bilirubin 1.4 H, AST 130 H, ALT 57, Albumin 2.7 L, CBC w Diff NO MAN DIFF REQ, RBC 2.28 L, MCV 109.0 H, MCH 37.5 H, RDW 14.6 H, MPV 8.1, Gran % 70.1, Lymphocytes % 18.7 L, Monocytes % 9.2, Eosinophils % 1.6, Basophils % 0.4, Absolute Granulocytes 4.1, Absolute Lymphocytes 1.1 L, Absolute Monocytes 0.5, Absolute Eosinophils 0.1, Absolute Basophils 0, PUBS MCHC 34.5 Assessment/Plan Assessment: Impression: He is 51-year-old man with past medical history of food impaction in esophagus in 2002 status post upper GI endoscopy for removal, Schatzki ring, hiatal hernia , past medical history of pancreatitis, chronic pain syndrome (right knee, back, left shoulder pain) on oxycodone and ibuprofen (takes 200 mg tablet 4 times a day for months) and alcohol abuse (drinks 3 times per week, each time 2-3 beers, drank 8 beers on per pt) presented to ER with complaint of vomiting bright red blood. He underwent EGD in ICU after presentation - got a clot removed from lower 1/3 of esophagus. However a repeat endoscopy is performed today after his stabilization. He is found to have Grade D ulcerative esophagitis with 2 organizing clots at 35 and 38cm. No esophageal or gastric varices seen. Biopsies obviously deferred. PLAN Hematemesis S/P choking food * Repeat endoscopy revealed grade D ulcerative esophagitis. * Started on oral Protonix 40 twice a day, sucralfate 3 times a day, Viscous Xylocaine medicine 2% swish and swallow. * He tolerated the procedure well and remained stable after the procedure * started on full liquid diet today. Suspected aspiration pneumonia * Hematemesis followed by an episode of desaturation and febrile with a Tmax of 101.5 * On unasyn 3g Q6 * Discontinued antibiotics today. History of chronic alcohol abuse * Recently hospitalized in [place] for alcohol detoxification * On banana bag and CIWA protocol * Tachycardic with very high Blood pressure - stablized today. * Alert and oriented X3, but often says that he had some polyp in his neck that need to be removed. History of chronic pain syndrome secondary to multiple falls * On oxycodone 10mg Q4 at home * discontinued IV pain medications today. Problem List: 1. Chronic back pain 2. Abdominal pain 3. Alcohol abuse 4. Chronic pain syndrome 5. Hiatal hernia 6. Upper GI bleed 7. Dysphagia 8. Food impaction of esophagus Pain Ratin Pain Location: Epigastric region, mid chest region Pain Goal: Pain 4 or less Pain Plan: On dilaudid converted to oral oxycodone 10mg Q4P Tomorrow's Labs & Rationales: none Consulting Request: Consulting Specialty: Gastroenterology
--- NOTE | 2016-04-13 08:52 | PN- Gastroenterology ---
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 Lee, with history of multiple falls (right TKR, post 4 previous right knee surgeries, multiple bilateral collarbone fractures, chronic back pain, DJD, herniated disc, shoulder pain), followed by Dr. Herring for primary care, claiming to average "8 drinks of EtOH weekly," with remote history of lower esophageal ring and food impaction. This required 12/14/2002: EGD x 2 same day (Dr. Shaq Umana/Dr. Shameka Gillette)- food impaction removed, lower esophageal ring, hiatal hernia. No varices or portal gastropathy noted at that time. The patient was put on a short course of Carafate and Nexium then. He was not compliant with suggested follow-up for semi-elective barium swallow & esophageal dilatation. He has not seen a automotive diagnostic technician since. He has had rare intermittent dysphagia to solids since, which passed spontaneously. He normally has no difficulty swallowing liquids or pills. He has not had a baseline colonoscopy. There is no family history of GI disease, GI malignancy, or inherited liver disease. He denies any history of viral hepatitis, tattoos, or known history of HIV. He denies using any street drugs or IVDA, aside from the prescribed Oxycodone. He denies cigarette use. The patient was eating a ham and cheese sandwich at 4 PM 04/09/2016, followed by dysphagia, with a feeling of impaction in the mid chest. This was followed by mild odynophagia, and questionable mid-pleuritic chest pain, without any hemoptysis. The patient had clear vomiting, without bile, followed by retching, followed by vomiting bright red blood. He had a brown bowel movement earlier today. There is no history of rectal bleeding or melena. He drove himself to the [facility] 04/09/2016, arriving at 6:44 PM. He had some rags that were covered with blood. Upon presentation, BP 144/97, P- 112, R- 20, T- 97.1, O2 sat RA 99%. He continued to have a sensation of food stuck, with vomiting of blood. He denies any history of peptic ulcer disease. He denies any aspirin use, but takes Ibuprofen 4 tabs daily for years, for his chronic aches and pains. He claims he was transfused at [facility] in 10/2015, where he went for a fractured left clavicle, but did not have surgery for this. The patient received Zofran, Protonix 80 mg IV bolus followed by Protonix drip, IV saline, Ativan, 1 amp of glucagon and SL NTG x 1, as his BP was stable, in order to try to get the food bolus to move. He did not get relief from this. The patient had low normal platelets, a borderline INR, and LFTs suggestive of alcoholic hepatitis, with [EtOH] 65, upon presentation (*see labs). Previous imaging studies did not show a cirrhotic liver. The patient desaturated slightly 04/09/2016 at 7:56 PM (O2 sat RA 89%), was put on O2 2L nc. *Admission chest x-ray did not show any evidence of aspiration, but it might be too soon to tell. *I advised the ER to give the patient IV Unasyn 3g (to cover his lungs) and 1 dose of empiric IV Ceftriaxone 1g (in case esophageal banding is needed). The patient denies any jaundice, dark urine, light stool, pruritus, or confusion. He admits to rare symptoms of GERD. He denies any fevers, chills, shortness of breath, early satiety, abdominal pain, diarrhea, constipation, obstipation, or tenesmus. He denies any symptoms of UTI or URI. He denies any significant weight loss or change in appetite. He is on a water pill and potassium for periodic lower extremity edema. He denies any increased abdominal girth. He denies any known history of cirrhosis. 10/28/2015: *Previous ER labs- WBC 8.4, H/H 8.6/24.9, elevated MCV 109.4, elevated RDW 16.7, PLT 121, PT 15.9, INR 1.51, PTT 37, glucose 138, BUN/Cr 3/0.5 , sodium 134, potassium 4.3, bicarbonate 22, AG 16, albumin 2.9, globulin 3.3, TBil 6.4, DBil 4.5, alkaline phosphatase 244, AST 309, ALT 69, A/L 115/315, troponin < 0.01. 04/09/2016: *Admission labs 6:56 p.m.- CBC 5.6, H/H 11.4/33, MCV 107.9, RDW 14.6 , PLT 152, PT 13.3, INR 1.27, PTT 38, glucose 113, BUN/Cr 9/0.7, GFR > 60, sodium 134, potassium 3.3, bicarbonate 29, AG 13, magnesium 1.1, calcium 8.9, albumin 3.7, globulin 3.4, TBil 1.5 (without fracs), alk phos 143, AST 163, ALT 66, [EtOH] 65, elevated lactate 2.6. 04/09/2016: *Discriminant function by Maddrey formula- 7.48. 04/09/2016: *Repeat CBC 8:14 p.m.- WBC 5.7, H/H 11.0/32.0, MCV 108.5, RDW 15, PLT 136 10/28/2015: CT ABDOMEN AND PELVIS WITH IV CONTRAST (per ER)- 1. Edema around contracted gallbladder suggesting acute cholecystitis. No bile duct dilatation. CBD 3 mm. Normal pancreas. Normal spleen. 2. Hepatomegaly with diffuse fatty infiltration of liver. No focal liver lesion. No mention of ascites. 3. DJD. 04/09/2016: EKG- ST @ 100, LAE, LAD, without acute ischemic changes. 04/09/2016: XR PORTABLE CHEST- No evidence of aspiration pneumonia. No effusion or CHF. Lungs clear. *The patient is having an upper GI bleed that started in the setting of a food impaction. He has a remote history of a lower esophageal ring in 12/2002, for which he was not compliant with suggested semi-elective esophageal dilatation. There is a substantial history of alcohol abuse. Recent 10/28/2015: CT AP with contrast showed an enlarged fatty liver without evidence of cirrhosis or portal collaterals. He has a significant history of Ibuprofen use. He has low normal platelets with a borderline INR. His albumin:globulin ratio is normal. He has a negative discriminant function (7.48) by the Maddrey formula regarding his EtOH hepatitis, but he would not be a candidate for Prednisolone or Trental anyway, in view of his active upper GI bleeding. I feel that an IV Protonix drip is sufficient on admission, and will defer Octreotide, unless varices are seen on EGD. *Vast differential diagnosis for the above includes esophageal ulceration in the setting of food impaction, Tsering-Garsia tear post retching, peptic ulcer disease and/or NSAID gastropathy, etc., with a less likely possibility of variceal bleeding. Doubt neoplasm. Again, there has been no documented cirrhosis in the past, and the bleeding occurred after the food impaction. Other considerations regarding the dysphagia, aside from the esophageal ring, could include stricture vs. EOE > esophageal dysmotility, by history. The oxygen desaturation is noted despite the clear chest x-ray, and it is possible the patient could have aspirated preop. 04/09/2016: EGD WITH FOREIGN BODY REMOVAL- 1. Clot partially cleared from lower 1/3 of esophagus, with a portion of the lower esophageal mucosa obscured. No definite esophageal varices seen. No gastric varices. No portal gastropathy. 2. Food cleared from lower esophagus, both in an antegrade and retrograde fashion, with patent esophageal lumen. 3. Suggestion of lower esophageal ring at 44 cm. 4. Small hiatal hernia pouch, without any Raheem erosions. No definite MWT seen. 5. Proximal linear gastritis. Biopsies deferred. 6. No evidence of peptic ulcer disease. *As of 04/10/2016, the patient's blood pressure is normal. He remains tachycardic. He spiked to 101.5 with O2 sat 4L 94%. Clinically, he aspirated in the ER, as he had a low-grade temp and drop in his O2 sat, prior to the EGD. He remains extubated. His H/H have dropped after IVF & equilibration, as expected, as his admission H/H were probably falsely elevated based on his previous CBC, due to initial hemoconcentration, superimposed on the UGI bleed. Unasyn has been continued to cover probable aspiration pneumonia, although repeat CXR post EGD without infiltrate. Ativan has been added. 04/10/2016: CXR- Low lung volumes with bibasilar atelectasis. No acute pulmonary findings. Gaseous distention of the stomach, post EGD. Known fractured left clavicle. 04/09/2016: *B12 526, folate 14.0. 04/09/2016: *U Tox- OP/MS > 4000. 04/10/2016: *troponin- neg x 3; lactate normalized 1.4, PO4 2.6. 04/10/2016: *Hep A Ab, Hep Bs Ag, Hep B core Ab, Hep C Ab- all negative; HIV- negative. 04/10/2016: *normal FT4 1.54, normal TSH 0.406. 04/10/2016: *SHAE- positive 1:160 homogeneous 04/10/2016: *BC X 2- negative. 04/10/2016: *UC- negative. 04/12/2016: *anti-smooth muscle Ab, anti-LKM Ab, anti-ds-DNA Ab, anti-SCLAb- pending. *As of 04/12/2016, the patient remains hemodynamically stable (borderline HTN) & not tachycardic. He is afebrile. His oxygen saturations are 95% on room air. He remains on empiric Unasyn for presumed aspiration pneumonia although multiple chest x-rays negative. He had some difficulty with ice chips experiencing dysphagia, but I gave him some water, 04/11/2016, which he tolerated uneventfully, except for some mild odynophagia on subsequent swallows. There has been no more active hematemesis. His able to clear his secretions. He had vague chest pain in the setting of chronic pain syndrome. There was previously reproduced by touch, with mild chest wall tenderness but no crepitus. There is no definite pleuritic pain or hemoptysis. Numerous troponins x 4, CXR and EKGs have been essentially negative for any acute process. There is no abdominal pain. He remains on an IV Protonix drip. He is receiving antiemetics. His last bowel movement was 04/09/2016- brown stool. His Hgb has dropped somewhat without the need for transfusion & has plateaued. His BUN has declined. There currently is no active recurrent UGI bleed. CIWA have ranged from 2-8. He is mildly agitated on Ativan as needed. He is no longer lethargic A & OX3. 04/10/2016: RUQ sono- fatty liver, without acute pathology. 04/12/2016: Repeat EGD- Impression: 1. Grade D ulcerative esophagitis with 2 organizing clots at 35 and 38 cm. No esophageal or gastric varices seen. Biopsies obviously deferred. 2. Z line at 44 cm. Patent esophageal lumen without any residual food impaction. 3. No fixed esophageal ribbing but rather intermittent ribbing in the lower 1/2 of the esophagus. Rule out EOE vs. esophageal dysmotility. 4. Small hiatal hernia. 5. Proximal gastritis. 04/12/2016: XR PORTABLE CHEST- Minimal right basilar atelectasis. No evidence of fluid overload. 04/12/2016: Repeat EGD- Impression: 1. Grade D ulcerative esophagitis with 2 organizing clots at 35 and 38 cm. No esophageal or gastric varices seen. Biopsies obviously deferred. 2. Z line at 44 cm. Patent esophageal lumen without any residual food impaction. 3. No fixed esophageal ribbing but rather intermittent ribbing in the lower 1/2 of the esophagus. Rule out EOE vs. esophageal dysmotility. 4. Small hiatal hernia. 5. Proximal gastritis. *As of 04/13/2016, the patient is much improved. He has been downgraded to General Medicine. He is tolerating clears po uneventfully. His dysphagia is much improved, as is his odynophagia. There is no shortness of breath. There is no significant chest pain. The patient is hungry. There has been no overt recurrent hematemesis. The patient is hemodynamically stable and borderline hypertensive. He remains afebrile. O2 sat RA 99%. CIWA- 0. He is on IV Protonix 40 mg BID, Carafate slurry and viscous Xylocaine. He is very comfortable. He has not required any transfusions. His Hgb has plateaued & stabilized. *SUGGEST- Advance to full liquids po. Aspiration precautions. Mobilize patient.*Okay from GI perspective to discharge to home today 04/13/2016. *May switch IV Protonix 40 mg BID to Protonix 40 mg po BID. *Continue Carafate slurry 1g tab mixed with 8 oz H2O po TID 1/2 hour before meals. *Continue viscous xylocaine 2% 1 tsp swish & swallow Q4h as needed. D/C IVF. *Replete electrolytes (i.e.- K+/ PO4-/Mg2+). *No need for Octreotide at present, as no definite varices seen. * Watch magnesium levels on PPI. May D/C Unasyn. *Ativan as needed. *Anti- emetics. *Continue thiamine, folate, multivitamin po. *No NSAIDs, ASA, or EtOH discussed with patient! *In view of +SHAE, await 04/12/2016: *anti-smooth muscle Ab, anti-LKM Ab (doubt AIH), anti-ds-DNA Ab, and scleroderma antibodies (dysphagia). *His issue of dysphagia/odynophagia will have to be reassessed as an outpatient, perhaps with a barium swallow and repeat EGD with biopsies (r/o EOE) vs. esophageal manometry , after the UGI bleeding is under better control & the clots have stabilized. * He also is in need of an outpatient baseline colonoscopy for screening purposes. *I advised the patient to see me in the office within 1 month, assuming he remains stable. He should have a repeat EGD/baseline colonoscopy by 07/2016, to get his esophagus a chance to heal. The above findings and recommendations were again discussed with the patient, the medical house staff & with Dr. Murray. The patient was previously given my office number. Further inpatient GI follow up as needed. Problem List: 1. Dysphagia 2. Food impaction of esophagus 3. Upper GI bleed 4. Hiatal hernia 5. Alcohol abuse 6. Alcohol withdrawal syndrome 7. Alcoholic hepatitis 8. Fatty liver 9. Macrocytic anemia 10. NSAIDs adverse reaction 11. Chronic pain syndrome Subjective Subjective: 04/12/2016: Repeat EGD- Impression: 1. Grade D ulcerative esophagitis with 2 organizing clots at 35 and 38 cm. No esophageal or gastric varices seen. Biopsies obviously deferred. 2. Z line at 44 cm. Patent esophageal lumen without any residual food impaction. 3. No fixed esophageal ribbing but rather intermittent ribbing in the lower 1/2 of the esophagus. Rule out EOE vs. esophageal dysmotility. 4. Small hiatal hernia. 5. Proximal gastritis. As of 04/13/2016, the patient is much improved. He has been downgraded to General Medicine. He is tolerating clears po uneventfully. His dysphagia is much improved, as is his odynophagia. There is no shortness of breath. There is no significant chest pain. The patient is hungry. There has been no overt recurrent hematemesis. The patient is hemodynamically stable and borderline hypertensive. He remains afebrile. O2 sat RA 99%. CIWA- 0. He is on IV Protonix 40 mg BID, Carafate slurry and viscous Xylocaine. He is very comfortable. He has not required any transfusions. His Hgb has plateaued & stabilized. Review of Systems: Full 14 point review of systems otherwise noncontributory, and as above. Review of Systems Constitutional: Reports: fever- resolved. Denies: chills, diaphoresis, malaise, weakness, unexplained weight loss. EENTM: Denies: blurred vision, double vision, visual changes, eye pain, eye drainage, eye tearing, icterus, ear discharge, ear pain, ear redness, hearing changes, nasal congestion, epistaxis, nasal pain, throat pain, throat swelling, mouth pain, tooth pain. Cardiovascular: Reports: chest pain (mild mid-pleuritic post FB)- essentially gone. Denies: edema, orthopena, palpitations, peripheral edema, syncope. Respiratory: Denies: cough, hemoptysis, orthopnea, short of breath, sputum production, stridor, wheezing. GI: Reports: vomiting, hemetemsis, dysphagia & odynophagia- essentially gone. Denies: abdominal pain, bloating, constipation, diarrhea, distention, bowel incontinence, melena, nausea, bloody stool, changes in stool, steatorrhea. Genitourinary: Denies: discharge, dysuria, frequency, hematuria, hesitation, nocturia, pain, urgency. Musculoskeletal: Reports: back pain, joint pain (*chronic pain; fxd clavicle). Denies: gout, joint swelling, muscle pain, muscle stiffness, neck pain. Skin: Denies: cysts, change in skin color, change in hair/nails, dryness, erythema, jaundice, lesions, lymphangitis, lumps, moles, rash. Neurological/Psychological: Reports: mild anxiety; tremors & withdrawal- gone. Denies: ataxia, cognitive dysfunction, confusion, depressed, dementia, emotional problems, headache, numbness, paresthesia, pre-existing deficit, petit mal seizures, tingling, tonic-clonic seizures, unable to move lower ext, unable to move upper ext, weakness. Hematologic/Endocrine: Denies: bruising, bleeding, polyuria, polydipsia. Immunologic/Allergic: Denies: splenectomy, HIV/AIDS, lymphadenopathy. All Other Systems: Reviewed and Negative Objective Vital Signs and I&Os Vital Signs Date Time Temp Pulse Resp B/P Pulse O2 O2 Flow FiO2 Ox Delivery Rate 04/13 0815 98.8 78 18 138/82 99 Room Air 04/13 0000 98.9 85 20 144/78 96 Room Air 04/13 0000 96 Room Air 04/12 1800 97.8 74 18 164/91 04/12 1600 97.8 74 20 160/90 04/12 1600 97.8 74 20 160/90 95 Room Air Room Air 04/12 1400 97.5 74 15 147/91 04/12 1200 97.5 73 16 145/92 04/12 1200 96 Room Air Room Air 04/12 1000 97.2 67 18 175/103 Intake & Output 04/13 1600 04/13 0400 04/12 1600 04/12 0400 04/11 1600 04/11 0400 Intake Total 1160 9451 803 1433 860 Output Total 500 5361 246 8869 600 Balance 660 296 -90 452 260 Intake, IV 600 9398 997 6120 860 Intake, Oral 560 0 Number 0 0 Bowel Movements Output, Urine 500 3588 858 3031 600 Patient 209 lb Weight Physical Exam: Chronically ill-appearing, slightly malnourished male, minimally anxious, in no apparent distress. No longer vomiting clots. Sclera anicteric. Conjunctiva slightly pale. Oropharynx clear. No oral thrush. No aphthous ulcers. No stridor. No head and neck or chest wall crepitus. Currently without mid-CWT (in the setting of chronic pain syndrome). There is no adenopathy, thyromegaly, or JVD. Slightly deformed left clavicle. No peripheral stigmata of inflammatory bowel disease or chronic liver disease on exam, aside from mild gynecomastia B/L , without masses or discharge. There are no spiders on the anterior chest wall. No CVA tenderness. Lungs: clear to A&P, with slight decreased breath sounds at the bases B/L. No wheezing, rales, rhonchi, or rub. Heart exam: regular rate rhythm, S1 and S2, without any murmur. Abdominal exam: normal bowel sounds, soft belly, nontender, without guarding or rebound. No mass. Enlarged liver, approximately 20 cm by percussion. Negative Garcia sign. No splenomegaly. No fluid shift. No pulsatile mass. Digital rectal exam: refused by patient (brown stool on admission, although expect subsequent melena, once esophageal clots pass). Extremities: without C, C, or E. No palpable cords. No Dupuytren's contractures. No palmar erythema. Distal pulses 2+ bilaterally. DTRs 2+ bilaterally. Left handed. CN II-XII intact. Alert and oriented x 3. No longer lethargic. No longer agitated, on Ativan p.r.n. No tremor. No asterixis. Current Medications: Current Medications Sig/Liat Start time Last Medication Dose Route Stop Time Status Admin Ampicillin Sodium/ 3,000 MG Q6H 04/10 0400 DC 04/13 Sulbactam Sodium IV 0448 Sodium Chloride 100 ML Chlorhexidine 1 GM .STK-MED ONE 04/12 1501 DC Gluconate TOP 04/12 1502 Cyanocobalamin/ 1 BAG DAILY 04/10 0230 04/12 Thiamine/Pyridoxine IV 1532 Sodium Chloride 1,000 ML Dextrose/Sodium 1,000 ML Q20H 04/10 2000 AC 04/10 Chloride IV 2017 Hydromorphone HCl 2 MG Q4P PRN 04/11 1000 AC 04/13 IV 0501 Lidocaine 15 ML Q4P PRN 04/12 2000 AC PO Lorazepam 0.5 MG ONE ONE 04/12 2315 DC 04/12 PO 04/12 2316 2357 Lorazepam 0.25 MG ONCE ONE 04/12 0915 DC 04/12 IV 04/12 0916 1036 Lorazepam 0 Q1P PRN 04/09 2200 AC 04/12 IV 0155 Magnesium Oxide 400 MG DAILY 04/13 1000 AC PO Ondansetron HCl 4 MG Q6P PRN 04/10 0100 AC 04/11 IV 0936 Pantoprazole Sodium 40 MG BID 04/12 2200 AC 04/12 IV 2254 Pantoprazole Sodium 40 MG BID 04/12 1428 DC IV Pantoprazole Sodium 40 MG Q5H 04/09 1900 DC 04/12 Sodium Chloride 100 ML IV 1210 Potassium Phosphate 15 mMol ONE ONE 04/13 0745 AC Dextrose/Water 250 ML IV 04/13 1148 Sucralfate 1,000 MG TID 04/12 1600 AC 04/12 PO 2242 Trimethobenzamide HCl 200 MG TID PRN 04/10 1300 AC 04/11 IM 2357 Results Pertinent Lab Results: Laboratory Tests 04/13 04/12 0500 1240 Chemistry Sodium (137 - 145 mmol/L) 136 L Potassium (3.5 - 5.1 mmol/L) 3.2 L Chloride (98 - 107 mmol/L) 101 Carbon Dioxide (22 - 30 mmol/L) 24 Anion Gap (5 - 16) 11 BUN (9 - 20 mg/dL) 6 L Creatinine (0.7 - 1.2 mg/dL) 0.5 L Estimated GFR (>60 ml/min) > 60 Glucose (65 - 99 mg/dL) 103 H Calcium (8.4 - 10.2 mg/dL) 8.0 L Phosphorus (2.5 - 4.5 mg/dL) 2.4 L Magnesium (1.6 - 2.3 mg/dL) 1.6 Total Bilirubin (0.2 - 1.3 mg/dL) 1.4 H AST (17 - 59 U/L) 130 H ALT (21 - 72 U/L) 57 Albumin (3.5 - 5.0 g/dL) 2.7 L Hematology CBC w Diff NO MAN DIFF REQ WBC (4.8 - 10.8 /CUMM) 5.9 RBC (4.70 - 6.10 /CUMM) 2.28 L Hgb (14.0 - 18.0 G/DL) 8.6 L Hct (42 - 52 %) 24.9 L MCV (80.0 - 94.0 FL) 109.0 H MCH (27.0 - 31.0 PG) 37.5 H RDW (11.5 - 14.5 %) 14.6 H Plt Count (130 - 400 /CUMM) 146 MPV (7.4 - 10.4 FL) 8.1 Gran % (42.2 - 75.2 %) 70.1 Lymphocytes % (20.5 - 51.1 %) 18.7 L Monocytes % (1.7 - 9.3 %) 9.2 Eosinophils % (0 - 5 %) 1.6 Basophils % (0.0 - 2.0 %) 0.4 Absolute Granulocytes (1.4 - 6.5 /CUMM) 4.1 Absolute Lymphocytes (1.2 - 3.4 /CUMM) 1.1 L Absolute Monocytes (0.10 - 0.60 /CUMM) 0.5 Absolute Eosinophils (0.0 - 0.7 /CUMM) 0.1 Absolute Basophils (0.0 - 0.2 /CUMM) 0 PUBS MCHC (33.0 - 37.0 G/DL) 34.5 Immunology Scl-70 Ab Confirm Pending Double Strand DNA Ab Pending Anti-Smooth Muscle Ab Pending Livr/Kid Microsome 1 Ab Pending 04/12 04/11 0400 1910 Chemistry Sodium (137 - 145 mmol/L) 141 Potassium (3.5 - 5.1 mmol/L) 3.7 Chloride (98 - 107 mmol/L) 105 Carbon Dioxide (22 - 30 mmol/L) 25 Anion Gap (5 - 16) 11 BUN (9 - 20 mg/dL) 9 Creatinine (0.7 - 1.2 mg/dL) 0.6 L Estimated GFR (>60 ml/min) > 60 Glucose (65 - 99 mg/dL) 92 Calcium (8.4 - 10.2 mg/dL) 8.1 L Phosphorus (2.5 - 4.5 mg/dL) 2.5 Magnesium (1.6 - 2.3 mg/dL) 1.9 Total Bilirubin (0.2 - 1.3 mg/dL) 1.4 H AST (17 - 59 U/L) 72 H ALT (21 - 72 U/L) 46 Albumin (3.5 - 5.0 g/dL) 2.9 L Hematology CBC w Diff NO MAN DIFF REQ NO MAN DIFF REQ WBC (4.8 - 10.8 /CUMM) 6.1 5.8 RBC (4.70 - 6.10 /CUMM) 2.28 L 2.31 L Hgb (14.0 - 18.0 G/DL) 8.5 L 8.6 L Hct (42 - 52 %) 25.1 L 25.3 L MCV (80.0 - 94.0 FL) 110.3 H 109.6 H MCH (27.0 - 31.0 PG) 37.3 H 37.1 H RDW (11.5 - 14.5 %) 15.1 H 15.2 H Plt Count (130 - 400 /CUMM) 132 127 L MPV (7.4 - 10.4 FL) 8.4 8.4 Gran % (42.2 - 75.2 %) 68.1 70.1 Lymphocytes % (20.5 - 51.1 %) 23.0 20.1 L Monocytes % (1.7 - 9.3 %) 8.0 9.1 Eosinophils % (0 - 5 %) 0.4 0.3 Basophils % (0.0 - 2.0 %) 0.5 0.4 Absolute Granulocytes (1.4 - 6.5 /CUMM) 4.1 4.1 Absolute Lymphocytes (1.2 - 3.4 /CUMM) 1.4 1.2 Absolute Monocytes (0.10 - 0.60 /CUMM) 0.5 0.5 Absolute Eosinophils (0.0 - 0.7 /CUMM) 0 0 Absolute Basophils (0.0 - 0.2 /CUMM) 0 0 PUBS MCHC (33.0 - 37.0 G/DL) 33.8 33.9 04/11 04/11 1600 0402 Chemistry Sodium (137 - 145 mmol/L) 140 Potassium (3.5 - 5.1 mmol/L) 3.3 L Chloride (98 - 107 mmol/L) 102 Carbon Dioxide (22 - 30 mmol/L) 27 Anion Gap (5 - 16) 10 BUN (9 - 20 mg/dL) 10 Creatinine (0.7 - 1.2 mg/dL) 0.6 L Estimated GFR (>60 ml/min) > 60 Glucose (65 - 99 mg/dL) 117 H Calcium (8.4 - 10.2 mg/dL) 8.0 L Phosphorus (2.5 - 4.5 mg/dL) 1.5 L Magnesium (1.6 - 2.3 mg/dL) 2.0 Total Bilirubin (0.2 - 1.3 mg/dL) 1.4 H AST (17 - 59 U/L) 67 H ALT (21 - 72 U/L) 46 Albumin (3.5 - 5.0 g/dL) 2.8 L Hematology CBC w Diff Cancelled NO MAN DIFF REQ WBC (4.8 - 10.8 /CUMM) Cancelled 6.8 RBC (4.70 - 6.10 /CUMM) Cancelled 2.21 L Hgb (14.0 - 18.0 G/DL) Cancelled 8.4 L Hct (42 - 52 %) Cancelled 24.5 L MCV (80.0 - 94.0 FL) Cancelled 110.5 H MCH (27.0 - 31.0 PG) Cancelled 37.7 H RDW (11.5 - 14.5 %) Cancelled 15.4 H Plt Count (130 - 400 /CUMM) Cancelled 121 L MPV (7.4 - 10.4 FL) Cancelled 8.5 Gran % (42.2 - 75.2 %) 76.4 H Lymphocytes % (20.5 - 51.1 %) 14.4 L Monocytes % (1.7 - 9.3 %) 8.9 Eosinophils % (0 - 5 %) 0 Basophils % (0.0 - 2.0 %) 0.3 Absolute Granulocytes (1.4 - 6.5 /CUMM) 5.2 Absolute Lymphocytes (1.2 - 3.4 /CUMM) 1.0 L Absolute Monocytes (0.10 - 0.60 /CUMM) 0.6 Absolute Eosinophils (0.0 - 0.7 /CUMM) 0 Absolute Basophils (0.0 - 0.2 /CUMM) 0 PUBS MCHC (33.0 - 37.0 G/DL) Cancelled 34.2 03 04/10 2255 1630 Chemistry Sodium (137 - 145 mmol/L) 138 Potassium (3.5 - 5.1 mmol/L) 3.3 L Chloride (98 - 107 mmol/L) 101 Carbon Dioxide (22 - 30 mmol/L) 28 Anion Gap (5 - 16) 10 BUN (9 - 20 mg/dL) 11 Creatinine (0.7 - 1.2 mg/dL) 0.6 L Estimated GFR (>60 ml/min) > 60 BUN/Creatinine Ratio (7 - 25 %) 18.3 Magnesium (1.6 - 2.3 mg/dL) 2.0 Hematology CBC w Diff NO MAN DIFF REQ NO MAN DIFF REQ WBC (4.8 - 10.8 /CUMM) 7.3 9.0 RBC (4.70 - 6.10 /CUMM) 2.32 L 2.40 L Hgb (14.0 - 18.0 G/DL) 8.6 L 8.9 L Hct (42 - 52 %) 25.1 L 26.0 L MCV (80.0 - 94.0 FL) 108.1 H 108.4 H MCH (27.0 - 31.0 PG) 37.3 H 37.2 H RDW (11.5 - 14.5 %) 15.5 H 14.9 H Plt Count (130 - 400 /CUMM) 129 L 142 MPV (7.4 - 10.4 FL) 8.4 8.1 Gran % (42.2 - 75.2 %) 79.0 H 83.4 H Lymphocytes % (20.5 - 51.1 %) 12.8 L 7.9 L Monocytes % (1.7 - 9.3 %) 8.0 8.7 Eosinophils % (0 - 5 %) 0 0 Basophils % (0.0 - 2.0 %) 0.2 0 L Absolute Granulocytes (1.4 - 6.5 /CUMM) 5.7 7.5 H Absolute Lymphocytes (1.2 - 3.4 /CUMM) 0.9 L 0.7 L Absolute Monocytes (0.10 - 0.60 /CUMM) 0.6 0.8 H Absolute Eosinophils (0.0 - 0.7 /CUMM) 0 0 Absolute Basophils (0.0 - 0.2 /CUMM) 0 0 PUBS MCHC (33.0 - 37.0 G/DL) 34.5 34.4 04/10 1150 Chemistry Troponin I (<0.11 ng/ml) < 0.01 Lipase (23 - 300 U/L) < 10 L Imaging/Other Studies: 10/28/2015: CT ABDOMEN AND PELVIS WITH IV CONTRAST (per ER)- 1. Edema around contracted gallbladder suggesting acute cholecystitis. No bile duct dilatation. CBD 3 mm. Normal pancreas. Normal spleen. 2. Hepatomegaly with diffuse fatty infiltration of liver. No focal liver lesion. No mention of ascites. 3. DJD. 04/09/2016: EKG- ST @ 100, LAE, LAD, without acute ischemic changes. 04/09/2016: XR PORTABLE CHEST- No evidence of aspiration pneumonia. No effusion or CHF. Lungs clear. 04/09/2016: *EGD WITH FOREIGN BODY REMOVAL- 1. Clot partially cleared from lower 1/3 of esophagus, with a portion of the lower esophageal mucosa obscured. No definite esophageal varices seen. No gastric varices. No portal gastropathy. 2. Food cleared from lower esophagus, both in an antegrade and retrograde fashion, with patent esophageal lumen. 3. Suggestion of lower esophageal ring at 44 cm. 4. Small hiatal hernia pouch, without any Raheem erosions. No definite MWT seen. 5. Proximal linear gastritis. Biopsies deferred. 6. No evidence of peptic ulcer disease. 04/10/2016: CXR- Low lung volumes with bibasilar atelectasis. No acute pulmonary findings. Gaseous distention of the stomach, post EGD. Known fractured left clavicle. 04/10/2016: US ABDOMEN LIMITED (RUQ)- Increased hepatic echogenicity suspicious for steatosis. No liver nodularity to suggest cirrhosis. Mildly prominent CBD 7 mm, without IHD. Normal GB. No ascites. 04/10/2016: XR PORTABLE CHEST- Stable examination. No pneumonia, pneumothorax or pleural effusion. There are low lung volumes. There are increased pulmonary vascular markings bilaterally. 04/12/2016: *Repeat EGD- Impression: 1. Grade D ulcerative esophagitis with 2 organizing clots at 35 and 38 cm. No esophageal or gastric varices seen. Biopsies obviously deferred. 2. Z line at 44 cm. Patent esophageal lumen without any residual food impaction. 3. No fixed esophageal ribbing but rather intermittent ribbing in the lower 1/2 of the esophagus. Rule out EOE vs. esophageal dysmotility. 4. Small hiatal hernia. 5. Proximal gastritis. 04/12/2016: XR PORTABLE CHEST- Minimal right basilar atelectasis. No evidence of fluid overload. Gaseous distention of the stomach, post EGD. Known fractured left clavicle. 04/10/2016: US ABDOMEN LIMITED (RUQ)- Increased hepatic echogenicity suspicious for steatosis. No liver nodularity to suggest cirrhosis. Mildly prominent CBD 7 mm, without IHD. Normal GB. No ascites. 04/10/2016: XR PORTABLE CHEST- Stable examination. No pneumonia, pneumothorax or pleural effusion. There are low lung volumes. There are increased pulmonary vascular markings bilaterally. 04/12/2016: *Repeat EGD- Impression: 1. Grade D ulcerative esophagitis with 2 organizing clots at 35 and 38 cm. No esophageal or gastric varices seen. Biopsies obviously deferred. 2. Z line at 44 cm. Patent esophageal lumen without any residual food impaction. 3. No fixed esophageal ribbing but rather intermittent ribbing in the lower 1/2 of the esophagus. Rule out EOE vs. esophageal dysmotility. 4. Small hiatal hernia. 5. Proximal gastritis. 04/12/2016: XR PORTABLE CHEST- Minimal right basilar atelectasis. No evidence of fluid overload.
--- NOTE | 2016-04-13 10:52 | PN- Pulmonary ---
Subjective HPI/Critical Care Issues: Pt seen and examined s/p endoscoy evidence of esophagitis feeling better pain controlled with meds no dyspnea no fevers or chills Objective Current Medications: Current Medications Sig/Liat Start time Last Medication Dose Route Stop Time Status Admin Ampicillin Sodium/ 3,000 MG Q6H 04/10 0400 DC 04/13 Sulbactam Sodium IV 0448 Sodium Chloride 100 ML Chlorhexidine 1 GM .STK-MED ONE 04/12 1501 DC Gluconate TOP 04/12 1502 Cyanocobalamin/ 1 BAG DAILY 04/10 0230 AC 04/12 Thiamine/Pyridoxine IV 1532 Sodium Chloride 1,000 ML Dextrose/Sodium 1,000 ML Q20H 04/10 2000 AC 04/13 Chloride IV 0920 Hydromorphone HCl 2 MG Q4P PRN 04/11 1000 AC 04/13 IV 0945 Lidocaine 15 ML Q4P PRN 04/12 2000 AC PO Lorazepam 0.5 MG ONE ONE 04/12 2315 DC 04/12 PO 04/12 2316 2357 Lorazepam 0 Q1P PRN 04/09 2200 AC 04/12 IV 0155 Magnesium Oxide 400 MG DAILY 04/13 1000 AC 04/13 PO 0919 Ondansetron HCl 4 MG Q6P PRN 04/10 0100 AC 04/11 IV 0936 Pantoprazole Sodium 40 MG BID 04/12 2200 AC 04/13 IV 0919 Pantoprazole Sodium 40 MG BID 04/12 1428 DC IV Pantoprazole Sodium 40 MG Q5H 04/09 1900 DC 04/12 Sodium Chloride 100 ML IV 1210 Potassium Phosphate 15 mMol ONE ONE 04/13 0745 AC 04/13 Dextrose/Water 250 ML IV 04/13 1148 0922 Sucralfate 1,000 MG TID 04/12 1600 AC 04/13 PO 0918 Trimethobenzamide HCl 200 MG TID PRN 04/10 1300 AC 04/11 IM 2357 Vital Signs & I&O Last 24 Hrs of Vitals and I&O: Vital Signs Date Time Temp Pulse Resp B/P Pulse O2 O2 Flow FiO2 Ox Delivery Rate 04/13 0715 98.8 78 18 138/82 99 Room Air 04/13 0000 98.9 85 20 144/78 96 Room Air 04/13 0000 96 Room Air 04/12 1800 97.8 74 18 164/91 04/12 1600 97.8 74 20 160/90 04/12 1600 97.8 74 20 160/90 95 Room Air Room Air 04/12 1400 97.5 74 15 147/91 04/12 1200 97.5 73 16 145/92 04/12 1200 96 Room Air Room Air Intake & Output 04/13 1600 04/13 0800 04/13 0000 Intake Total 1293 1160 Output Total 500 500 Balance 793 660 Intake, IV 653 600 Intake, Oral 640 560 Output, Urine 500 500 Exam Other Physical Findings: General - Alert, awake and oriented HEENT - normocephalic, atraumatic Cardiovascular - S1, S2 Lungs - clear to auscultation bilaterally Abdomen - soft, bowel sounds positive, no tenderness Extremities - without edema or cyanosis Results Last 24 Hrs of Lab Results: Laboratory Tests 04/13/16 0500: Anion Gap 11, Estimated GFR > 60, Glucose 103 H, Calcium 8.0 L, Phosphorus 2.4 L, Magnesium 1.6, Total Bilirubin 1.4 H, AST 130 H, ALT 57, Albumin 2.7 L, CBC w Diff NO MAN DIFF REQ, RBC 2.28 L, MCV 109.0 H, MCH 37.5 H, RDW 14.6 H, MPV 8.1, Gran % 70.1, Lymphocytes % 18.7 L, Monocytes % 9.2, Eosinophils % 1.6, Basophils % 0.4, Absolute Granulocytes 4.1, Absolute Lymphocytes 1.1 L, Absolute Monocytes 0.5, Absolute Eosinophils 0.1, Absolute Basophils 0, PUBS MCHC 34.5 04/12/16 1240: Scl-70 Ab Confirm Pending, Double Strand DNA Ab Pending, Anti-Smooth Muscle Ab Pending, Livr/Kid Microsome 1 Ab Pending Impression/Plan Impression/Plan Impression/Plan: Impression 51-year-old man with acute blood loss anemia secondary to food impaction and GI bleed. Chronic pain syndrome, EtOH dependence history. No obvious pna at this time. Plan - F/u GI recommendations, to see GI in 1 month - off abx - pain control - dvt prophylaxis with ALPS for now given anemia at all times oob, if doing well, plan for d/c vs gm transfer
[2016-04-13] MEDS ORDERED: LIDOCAINE HCL V15 ML PO (11:35)
[2016-04-13] MEDS ORDERED: MAGNESIUM OXID400 M1 PO (11:35)
[2016-04-13] MEDS ORDERED: PROTONIX40 M3 IV (11:35)
[2016-04-13] MEDS ORDERED: CARAFATE1 G1 PO (11:35)
--- NOTE | 2016-04-13 11:38 | Patient Discharge Instructions ---
Discharge Instructions General Discharge Information You were seen/treated for: Hematemesis S/P choking aspiration pneumonia You had these procedures: upper GI endoscopy twice Special Instructions: Please follow up with in a month. Please follow up with PCP in a week. Diet Continue normal diet: Yes Recommended Diet: soft diet. Activity Full Activity/No Limits: No Activity Self Limited: Yes Acute Coronary Syndrome Inclusion Criteria At DC or during hospital stay patient has or had the following: ACS DIAGNOSIS No Discharge Core Measures Meds if any: Prescribed or Continued at Discharge Meds if any: NOT Prescribed or Continued at Discharge Congestive Heart Failure Inclusion Criteria At DC or during hospital stay patient has or had the following: CHF DIAGNOSIS No Discharge Core Measures Meds if any: Prescribed or Continued at Discharge Meds if any: NOT Prescribed or Continued at Discharge Cerebrovascular accident Inclusion Criteria At DC or during hospital stay patient has or had the following: CVA/TIA Diagnosis No Discharge Core Measures Meds if any: Prescribed or Continued at Discharge Meds if any: NOT Prescribed or Continued at Discharge Venous thromboembolism Inclusion Criteria VTE Diagnosis No VTE Type NONE VTE Confirmed by (Test) NONE Discharge Core Measures - Per Current guidelines, there needs to be overlap - treatment for the first 5 days of Warfarin therapy. - If discharged on Warfarin prior to 5 days of - overlap therapy, the patient will need to be - assessed for post discharge needs including - *Post discharge parental anticoagulation - *Warfarin and/or parental anticoagulation education - *Follow up date to check INR post discharge At least 5 days overlap therapy as Inpatient No Meds if any: Prescribed or Continued at Discharge Note: Overlap Therapy is Warfarin and Anticoagulant Meds if any: NOT Prescribed or Continued at Discharge
[2016-04-13] MEDS ORDERED: OMEPRAZOLE20 M2 PO (12:00)
[2016-04-13] MEDS ORDERED: OXYCODONE HCL10 M2 PO (12:19)
[2016-04-13] MEDS ORDERED: FOLIC ACID1 M1 PO (12:51)
[2016-04-13] MEDS ORDERED: VITAMIN B-150 M1 PO (12:51)
[2016-04-13] MEDS ORDERED: ONE DAILY MULT1 EAC2 PO (12:51)
--- NOTE | 2016-04-13 19:03 | Discharge Summary ---
Visit Information Visit Dates Admission Date: 04/09/16 Discharge Date: 04/13/16 Hospital Course Course Attending Physician: TESSIE MOORE MD Primary Care Physician: ALMAS IRWIN MD Consulting Request: 1 Consulting Specialty: Gastroenterology Consulting Physician: Reason for Consult: Food impaction in esophagus Consulting Request: 2 Consulting Specialty: Critical Care Consulting Physician: Reason for Consult: [facility] management and aspiration pneumonia Hospital Course: He is 51-year-old man with past medical history of food impaction in esophagus in 2002 status post upper GI endoscopy for removal, Schatzki ring, hiatal hernia , past medical history of pancreatitis, chronic pain syndrome (right knee, back, left shoulder pain) on oxycodone and ibuprofen (takes 200 mg tablet 4 times a day for months) and alcohol abuse (drinks 3 times per week, each time 2-3 beers, drank 8 beers on Candy per pt) presented to ER with complaint of vomiting bright red blood. In the ER Vitals: Patient was tachycardic at presentation, normal BP, temperature 97.1, he had an episode of desaturating at 89% and was started on 2 L nasal cannula. On exam : A O 3, very anxious, continuously vomiting blood. Peripheral perfusion normal, normal pulses. No obvious stigmata of liver disease on skin, no ascites , abdomen soft nontender bowel sounds present. CVS: S1-S2, tachycardia, RRR. RS: Clear air entry bilaterally present. No obvious focal neuro deficit but complete neuro examination could not be done. Labs: Hemoglobin 11.4, MCV 107.9, INR 1.27, potassium 3.3, bilirubin 1.5, AST 163, alkaline phosphatase 143, albumin 3.7 Chest x-ray: No evidence of aspiration PLAN Hematemesis S/P choking food He underwent an upper endoscopy immediately after the admission, able to remove a clot in the lower third of esophagus. He is placed on protonix drip eventually, had minimal hematemesis for the next 2 days along with significant nausea. He complained of chest pain several times although his chest x ray and troponins are negative through out. However a repeat endoscopy was done on 04/12/16 with revelaed grade D ulcerative esophagitis with 2 organizing clots at 35 and 38cm. No esophageal or gastric varices seen. Biopsies obviously deferred. He was started on oral Protonix 40 twice a day, sucralfate 3 times a day, Viscous Xylocaine medicine 2% swish and swallow. He tolerated the procedure well and remained stable after the procedure Therefore started on clear liquid diet followed by full liquid diet. Next day he remained stable and discharged with oral Protonix 40 twice a day, sucralfate 3 times a day, Viscous Xylocaine medicine 2% swish and swallow. He was asked to follow up with after a month. Suspected aspiration pneumonia He had an episode of desaturation in the ER at the time of admission and he spiked a fever of 101.5 next day, so strarted on unasyn 3gm Q6. he remained afebrile after that. Antibiotics are discontinued during discharge. History of chronic alcohol abuse Recently hospitalized in [place] for alcohol detoxification. He was on banana bag and CIWA protocol for his withdrawl. Tachycardic with very high Blood pressure for the first 2 days, stablized by the time of discharge. He was discharged on folic acid, thiamine and multivitamin. History of chronic pain syndrome secondary to multiple falls On oxycodone 10mg Q4 at home. Received Dilaudid during his stay. Allergies: Coded Allergies: morphine (Mild, HIVE 04/10/16) Significant Procedures: Upper GI endoscopy twice Results First endoscopy on apr 09 2016 Impression: 1. Clot partially cleared from lower 1/3 of esophagus, with a portion of the lower esophageal mucosa obscured. No definite esophageal varices seen. No gastric varices. No portal gastropathy. 2. Food cleared from lower esophagus, both in an antegrade and retrograde fashion, with patent esophageal lumen. 3. Suggestion of lower esophageal ring at 44 cm. 4. Small hiatal hernia pouch, without any Raheem erosions. No definite MWT seen. 5. Proximal linear gastritis. Biopsies deferred. 6. No evidence of peptic ulcer disease. Repeat endoscopy on april 12 2016 Impression: 1. Grade D ulcerative esophagitis with 2 organizing clots at 35 and 38 cm. No esophageal or gastric varices seen. Biopsies obviously deferred. 2. Z line at 44 cm. Patent esophageal lumen without any residual food impaction. 3. No fixed esophageal ribbing but rather intermittent ribbing in the lower 1/2 of the esophagus. Rule out EOE vs. esophageal dysmotility. 4. Small hiatal hernia. 5. Proximal gastritis. Disposition Summary Disposition Principal Diagnosis: Grade D ulcerative esophagitis Additional Diagnosis: Alcohol withdrawl Discharge Disposition: home or self care Discharge Instructions General Discharge Information Code Status: Full Code Patient's Diet: Regular diet/as tolerated - soft diet initially Patient's Activity: Activity as tolerated Follow-Up Instructions/Appts: Please follow up with after a month. Please follow up with your PCP in a week. Medications at Discharge Discharge Medications: Stop taking the following medications: Ibuprofen (Ibuprofen) 200 MG CAPSULE ORAL as needed for PAIN Continue taking these medications: Oxycodone HCl (Oxycodone HCl) 10 MG TABLET 1 Tablet ORAL Q4H as needed for CHRONIC PAIN Qty = 120 Comments: Last Taken:NOT GIVEN WHILE ADMITTED Time: Potassium Chloride (Potassium Chloride) 10 MEQ TAB.ER.PRT 1 Tablet ORAL DAILY Qty = 30 Comments: NOT GIVEN THIS ADMISSION Furosemide (Lasix) 40 MG TABLET 1 Tablet ORAL TWICE DAILY Comments: Last Taken:NOT GIVEN WHILE ADMITTED Time: Start taking the following new medications: Lidocaine HCl (Lidocaine HCl Viscous) 2 % SOLUTION 15 Milliliters ORAL EVERY 4 HOURS NEEDED as needed for ESOPHAGEAL SPASM ( CHEST PAIN) Qty = 10 No Refills Comments: Last Taken:NOT GIVEN THIS ADMISSION Time: Magnesium Oxide (Magnesium Oxide) 400 MG TABLET 400 Milligram ORAL DAILY Qty = 10 No Refills Comments: Last Taken:04/13/16 Time: 9:19A.M Sucralfate (Carafate) 1 GRAM TABLET 1,000 Milligram ORAL THREE TIMES DAILY Qty = 60 No Refills Comments: Last Taken:04/13/16 Time: 9:19A.M Omeprazole (Omeprazole) 20 MG CAPSULE.DR 40 Milligram ORAL TWICE DAILY Qty = 60 No Refills Comments: Last Taken:NOT STARTED IN HOSPITAL Time: Folic Acid (Folic Acid) 1 MG TABLET 1 Milligram ORAL DAILY Days = 90 No Refills Comments: Last Taken:04/13/16 Time:1:30P.M Thiamine HCl (Vitamin B-1) 50 MG TABLET 50 Milligram ORAL DAILY Days = 90 No Refills Comments: Last Taken:NOT STARTED IN HOSPITAL Time: Multivitamin (One Daily Multivitamin) 1 EACH TABLET 1 Tablet ORAL DAILY Days = 90 No Refills Comments: Last Taken:NOT GIVEN WHILE ADMITTED Time: Copies To: JOSE DANIEL EDWARD,ARETHA Roy; DC EDWARD,ALMAS Attending MD Review Statement Documenting Attending: ANTOINE EDWARD,LUCIA
== END 2016-04-13 15:00 | disposition home health service (06) | DRG 243 ==
LOC: ERH 18:44 → CRI 20:22 → ERHI 20:22 → CRI 21:51
PROVIDERS: Internal Medicine; Internal Medicine Infectious Disease; Internal Medicine Interventional Cardiology; Physician Assistant; ADMIT Internal Medicine
PROC: 0DC58ZZ Extirpation of Matter from Esophagus, Via Natural or Artificial Opening Endoscopic (ICD-10-PCS; principal; 2016-04-09)
PROC: 0DJ08ZZ Inspection of Upper Intestinal Tract, Via Natural or Artificial Opening Endoscopic (ICD-10-PCS; 2016-04-12)
DX: K22.11 Ulcer of esophagus with bleeding (principal); T18.128A Food in esophagus causing other injury, initial encounter; D62 Acute posthemorrhagic anemia; G89.4 Chronic pain syndrome; F10.239 Alcohol dependence with withdrawal, unspecified; D68.8 Other specified coagulation defects; E87.1 Hypo-osmolality and hyponatremia; K70.10 Alcoholic hepatitis without ascites; E46 Unspecified protein-calorie malnutrition; E87.6 Hypokalemia; J69.0 Pneumonitis due to inhalation of food and vomit; E83.42 Hypomagnesemia; K29.70 Gastritis, unspecified, without bleeding; K44.9 Diaphragmatic hernia without obstruction or gangrene; X58.XXXA Exposure to other specified factors, initial encounter
CPT/HCPCS: 83516; 86376; CCU; 36415; 80307; 82436; 86325; 86920; 87040; 87070; 87086; 87389; 93005; 93010; 96374; 96375; 97001-GP; 97116-GO; 97161-GP; 97530-GO; G0480; J0131; J0696; J1170; J1610; J2405; J3250; J3490; J7040; J7042; J7060